=== PATIENT | female | born 1955 | race Caucasian/White ===

== ENCOUNTER 2017-02-12 09:28 | Inpatient (IN) ==
--- NOTE | 2017-02-12 10:04 | Emergency Department Note ---
Disposition Clinical Impression: Dyspnea Qualifiers: Dyspnea type: unspecified Qualified Code(s): R06.00 - Dyspnea, unspecified Chest pain Qualifiers: Chest pain type: unspecified Qualified Code(s): R07.9 - Chest pain, unspecified Disposition: Still a Patient Referrals: NO,PCP [Non-Partnered Physician] - Forms: ED Satisfaction Letter Time of Disposition: 11:05 SOB HPI - General Chief Complaint: ED Chest Pain Stated Complaint: Low SPO 2 Source: patient, family Limitations: no limitations Nursing Notes Reviewed: Yes Vital Signs Reviewed: Yes - History of Present Illness 61-year-old female presents to the emergency department for evaluation of low SPO2, and substernal chest pressure. The patient was at her primary care provider's office this morning, and was found to have an oxygen saturation in the low 80s on room air. The patient states that this has been an ongoing problem for the past week, however she refused to seek medical help. She states that at the worst, her oxygen saturation reached a level of 57% on room air, yet she refused to seek medical care. She does complain of some substernal chest pressure. She also states that there is a pleuritic component to the pain in her chest. She states that the chest pain is somewhat alleviated by rest, and is made worsened with exertion. As complain of orthopnea as well. She denies any fever, chills, nausea, vomiting, abdominal pain, cough, or sputum production. She also complains of worsening bilateral lower extremity swelling. Pt Subjective Complaint: shortness of breath, pain with inspiration, chest pain Onset (ago): week(s) (1 week) Severity: moderate Consistency/Duration: gradually worsening Associated symptoms: Reports: chest pain, pain with inspiration, orthopnea. Denies: fever, cough, wheezing, sputum production, palpitations, hemoptysis, diaphoresis, nausea/vomiting, abdominal pain Treatment prior to arrival: oxygen - Related Data Home Medications Medication Instructions Recorded Confirmed Albuterol Sulfate [Proair 2 inh IH Q4H PRN 06/21/16 10/07/16 Respiclick] Aspirin [Lo-Dose Aspirin EC] 81 mg PO DAILY 06/21/16 10/07/16 Atenolol/Chlorthalidone [Tenoretic 1 each PO DAILY 06/21/16 10/07/16 50 Tablet] Atorvastatin Calcium [Lipitor] 20 mg PO DAILY 06/21/16 10/07/16 CloNIDine HCl [Kapvay] 0.1 mg PO DAILY PRN 06/21/16 10/07/16 Fluticasone/Salmeterol [Advair 1 each IH BID 06/21/16 10/07/16 250-50 Diskus] Furosemide [Lasix] 40 mg PO DAILY 06/21/16 10/07/16 Glimepiride [Amaryl] 4 mg PO BID 06/21/16 10/07/16 Insulin NPH Hum/Reg Insulin Hm 55 - 75 unit SQ BID 06/21/16 10/07/16 [Novolin 70-30 100 Unit/ml Vial] Ipratropium/Albuterol Neb [Duoneb] 3 ml IH Q6HR PRN 06/21/16 10/07/16 Loratadine [Claritin] 10 mg PO DAILY 06/21/16 10/07/16 Nitroglycerin 0.4 mg SL Q5-6MIN PRN 06/21/16 10/07/16 Omeprazole [PriLOSEC] 40 mg PO DAILY 06/21/16 10/07/16 Oxycodone HCl/Acetaminophen 1 - 2 tab PO Q4-6H PRN 06/21/16 10/07/16 [Percocet 5-325 mg Tablet] Pregabalin [Lyrica] 200 mg PO BID 06/21/16 10/07/16 cephALEXin [Keflex] 500 mg PO BID 06/21/16 10/07/16 metFORMIN [Glucophage] 1,000 mg PO BIDWM 06/21/16 10/07/16 Allergies Allergy/AdvReac Type Severity Reaction Status Date / Time SLOAN Inhibitors AdvReac Cough Verified 02/12/17 09:38 enalapril AdvReac Cough Verified 02/12/17 09:38 All systems ED: reviewed and negative except as stated. Constitutional: Denies: fever, chills, weakness, weight change Eyes: Denies: eye pain, eye discharge, vision change ENT ED: Denies: ear pain, throat pain, dental pain, hearing loss, epistaxis, congestion, dysphagia Cardiovascular: Reports: as per HPI, chest pain, dyspnea on exertion, orthopnea , edema. Denies: palpitations, syncope Respiratory: Denies: cough, dyspnea, wheezes, hemoptysis, stridor Gastrointestinal: Denies: abdominal pain, nausea, vomiting, diarrhea, constipation, hematemesis, melena, hematochezia Genitourinary: Denies: dysuria, frequency, hematuria, discharge Musculoskeletal: Denies: back pain, neck pain, arthralgia, myalgia Integumentary: Denies: rash, abrasion, lesions Neurological: Denies: headache, weakness, numbness, paresthesias, confusion, abnormal gait, vertigo Psychiatric: Denies: anxiety, depression, suicidal thoughts, homicidal thoughts , auditory hallucinations, visual hallucinations Endocrine: Denies: fatigue Hematological/Lymphatic: Denies: easy bleeding, easy bruising Allergic/Immunologic: Denies: facial swelling, urticaria Past Medical History - Past Medical History Attestation: Yes The following information was validated with the patient. Source: patient, nursing notes reviewed Medical history: Reports: asthma, cardiomyopathy, diabetes, hypertension, other Surgical history: Reports: other Psychiatric history: Reports: no psych history ADOPTION COORDINATOR history: Reports: no ADOPTION COORDINATOR history - Social History Smoking Status: Never smoker Smokeless Tobacco Status: No Alcohol use: Reports: none Drug use: Reports: none Physical Exam - General Limitations: no limitations General appearance: alert, in no apparent distress - Head Head exam: atraumatic, normocephalic, normal inspection - Eye Eye exam: Present: normal appearance, PERRL, EOMI. Absent: nystagmus - ENT ENT exam: mucous membranes moist - Neck Neck exam: Present: normal inspection, full ROM, trachea midline - Chest Chest inspection: Present: normal inspection, symmetric chest wall rise - Respiratory Respiratory exam: Absent: respiratory distress, wheezes, stridor, accessory muscle use, prolonged expiratory phase - Expanded Respiratory Exam Location: decreased breath sounds: Left, Right, Upper, Lower - Cardiovascular Cardiovascular exam: Present: regular rate, normal rhythm, normal heart sounds - Abdominal Exam Abdominal exam: Present: soft, Non-Tender, normal bowel sounds. Absent: tenderness, distention, guarding, rebound, rigidity - Extremities Exam Extremities exam: Present: pedal edema (Bilaterally, 1-2+) - Expanded Lower Extremity Exam Lower leg exam: Present: swelling (Bilaterally), erythema (Left lower extremity slightly more erythematous than the right. There is an area of apparent cellulitis on the anterior aspect of the dorsal left lower extremity). Absent: tenderness, abrasion, laceration, ecchymosis, palpable cord, Homans' sign Neurovascular/Tendon exam: Present: normal capillary refill, normal 2-point discrimination. Absent: pulse deficit, motor deficit, sensory deficit, tendon deficit, extremity cold to touch - Neurological Exam Neurological exam: Present: alert, oriented X3 - Psychiatric Psychiatric exam: Present: normal affect, normal mood - Skin Skin exam: Present: warm, dry, intact, normal color Course Vital Signs Temperature 98.2 F 02/12/17 09:32 Pulse Rate 65 02/12/17 09:32 Respiratory Rate 22 02/12/17 09:32 Blood Pressure 155/73 02/12/17 09:32 O2 Sat by Pulse Oximetry 90 02/12/17 09:32 Temperature 98.2 F 02/12/17 09:32 Pulse Rate 67 02/12/17 12:25 Respiratory Rate 18 02/12/17 12:25 Blood Pressure 130/78 02/12/17 12:25 O2 Sat by Pulse Oximetry 93 02/12/17 12:25 Oxygen Delivery Oxygen Delivery Nasal Cannula Shortness of Breath/Dyspnea - Medical Records Medical records reviewed: Yes I reviewed the patient's medical records. - Lab Data Lab results reviewed: Yes I reviewed the patient's lab results. Result diagrams: 02/12/17 10:08 02/12/17 10:37 Lab Results 02/12/17 02/12/17 02/12/17 Range/Units 10:08 10:08 10:08 WBC 13.5 H (4.3-11.1) K/mcL RBC 4.22 (3.82-4.97) M/mcL Hgb 12.9 (11.5-15.4) g/dL Hct 40.3 (35.3-44.9) % MCV 95.5 (83.0-100.0) fL MCH 30.6 (28.0-33.3) pg MCHC 32.0 (31.6-35.5) g/dL RDW 19.2 H (11.5-14.5) % Plt Count 306 (140-400) K/mcL MPV 9.9 (9.4-12.4) fL Immature Gran % 0.8 (0-4) % Seg Neutrophils % 79.5 % Lymphocytes % 13.0 % Monocytes % 4.2 % Eosinophils % 2.1 % Basophils % 0.4 % Neutrophils # 10.7 H (1.6-8.9) K/mcL Lymphocytes # 1.8 (0.6-4.6) K/mcL Monocytes # 0.6 (0.0-1.3) K/mcL Eosinophils # 0.3 (0.0-0.6) K/mcL Basophils # 0.1 (0.0-0.2) K/mcL Nucleated RBCs/100 WBC 0.7 H (0) /100 WBC Immature Plt Fraction 3.4 (1.1-6.1) % PT 11.5 (9.4-12.1) Seconds INR 1.1 APTT 26.8 (26.0-36.0) Seconds D-Dimer 837 H (0-500) ng/mLFEU Sodium (136-145) mEq/L Potassium (3.5-4.5) mEq/L Chloride (98-109) mEq/L Carbon Dioxide (19-29) mEq/L BUN (7-20) mg/dL Creatinine (0.57-1.11) mg/dL Est GFR ( Amer) (> 60) Est GFR (Non-Af Amer) (> 60) BUN/Creatinine Ratio (6-26) Glucose (70-99) mg/dL Calculated Osmolality (280-300) Calcium (8.6-10.8) mg/dL Troponin I (0-0.03) ng/mL B-Natriuretic Peptide 98 (0-100) pg/mL Specimen Rejected 02/12/17 02/12/17 02/12/17 Range/Units 10:08 10:08 10:37 WBC (4.3-11.1) K/mcL RBC (3.82-4.97) M/mcL Hgb (11.5-15.4) g/dL Hct (35.3-44.9) % MCV (83.0-100.0) fL MCH (28.0-33.3) pg MCHC (31.6-35.5) g/dL RDW (11.5-14.5) % Plt Count (140-400) K/mcL MPV (9.4-12.4) fL Immature Gran % (0-4) % Seg Neutrophils % % Lymphocytes % % Monocytes % % Eosinophils % % Basophils % % Neutrophils # (1.6-8.9) K/mcL Lymphocytes # (0.6-4.6) K/mcL Monocytes # (0.0-1.3) K/mcL Eosinophils # (0.0-0.6) K/mcL Basophils # (0.0-0.2) K/mcL Nucleated RBCs/100 WBC (0) /100 WBC Immature Plt Fraction (1.1-6.1) % PT (9.4-12.1) Seconds INR APTT (26.0-36.0) Seconds D-Dimer (0-500) ng/mLFEU Sodium 142 (136-145) mEq/L Potassium 3.2 L (3.5-4.5) mEq/L Chloride 96 L (98-109) mEq/L Carbon Dioxide 34 H (19-29) mEq/L BUN 17 (7-20) mg/dL Creatinine 1.01 (0.57-1.11) mg/dL Est GFR ( Amer) > 60 (> 60) Est GFR (Non-Af Amer) 56 L (> 60) BUN/Creatinine Ratio 17 (6-26) Glucose 159 H (70-99) mg/dL Calculated Osmolality 299 (280-300) Calcium 9.1 (8.6-10.8) mg/dL Troponin I 0.00 (0-0.03) ng/mL B-Natriuretic Peptide (0-100) pg/mL Specimen Rejected Hemolyzed - Radiology Data Radiology results reviewed: Yes I reviewed the patient's radiology results. - EKG Data EKG attestation: Yes I reviewed and interpreted this EKG. SMatti - S.B.A.RAlber Transition of Care: Care of this patient has been assumed by Dr. Coronado as of this time. Situation: Demographics, MOA Background: Presenting Complaint, Relevant PMH, Meds, & Allergies Assessment: Vital Signs, Course and respsone to treatment, Exam Concerns, Patient/Family Expectation, Pertinant Lab Results, Outstanding Labs Recommendation: Barrier(s) to disposition, Recommendation based on pending studies, treatments, or consults S.B.A.RAlber Report Given to: Cliff Zarco Repor Time: 11:05 Attestation Statement - Attestation Attestation: I examined this patient and my medical decision-making was reviewed with the CAT AND DOG BATHER/PA/Advanced Practice Nurse/Resident Physician. I agree with the documented findings, disposition and treatment plan as described except to the extent set forth below. Face to face time provided Patient presents with substernal chest discomfort, dyspnea, hypoxia. She is intermittently oxygen dependent-mostly at night with her CPAP. She was hypoxic prehospital. CTA ordered by the mid-level provider. EKG reviewed by me. Patient appears in no acute distress on exam. Oxygen low 90s on supplemental oxygen 12:27: CTA negative for acute pathology including pulmonary embolism. Pulse ox is 89% with supplemental oxygen. She is resting comfortably. I will request admission for chest pain evaluation and possible pulmonary consultation
[2017-02-12 10:19] LABS: Hematocrit 40.3 % (35.3-44.9); Hemoglobin 12.9 g/dL (11.5-15.4); Red Blood Count 4.22 M/mcL (3.82-4.97)
[2017-02-12 10:20] LABS: Basophils # 0.1 K/mcL (0.0-0.2); Basophils % 0.4 %; Eosinophils # 0.3 K/mcL (0.0-0.6); Eosinophils % 2.1 %; Immature Granulocytes % 0.8 % (0-4); Immature Platelets 3.4 % (1.1-6.1); Lymphocytes # 1.8 K/mcL (0.6-4.6); Mean Corpuscular Hemoglobin 30.6 pg (28.0-33.3); Mean Corpuscular Volume 95.5 fL (83.0-100.0); Mean Platelet Volume 9.9 fL (9.4-12.4); Monocytes # 0.6 K/mcL (0.0-1.3); Monocytes % 4.2 %; Neutrophils # 10.7 K/mcL (1.6-8.9); Nucleated Red Blood Cells 0.7 /100 WBC (0); Platelet Count 306 K/mcL (140-400); Red Cell Distribution Width 19.2 % (11.5-14.5); Segmented Neutrophils % 79.5 %
[2017-02-12 10:25] LABS: INR 1.1; Prothrombin Time 11.5 Seconds (9.4-12.1)
[2017-02-12 10:27] LABS: Activated Partial Thrombo Time 26.8 Seconds (26.0-36.0)
[2017-02-12 11:24] LABS: BUN/Creatinine Ratio 17 (6-26); Blood Urea Nitrogen 17 mg/dL (7-20); Calcium 9.1 mg/dL (8.6-10.8); Carbon Dioxide 34 mEq/L (19-29); Chloride 96 mEq/L (98-109); Glucose 159 mg/dL (70-99); Osmolality,Calculated 299 (280-300); Potassium 3.2 mEq/L (3.5-4.5); Sodium 142 mEq/L (136-145); eGFR For African Americans > 60 (> 60); eGFR For Non-African Americans 56 (> 60)
[2017-02-12] MEDS ORDERED: Naloxone 0.4 MG/ML INJ IVP PRN (14:13)
[2017-02-12] MEDS ORDERED: Furosemide 40 MG/4 ML VIAL IVP ONE (14:16)
[2017-02-12] MEDS ORDERED: Dextrose Gel 15 GM PO PRN ×2 (14:16)
[2017-02-12] MEDS ORDERED: *HR* Dextrose 50 % in Water (Syg) 50 ML SYRINGE IVP PRN (14:16)
[2017-02-12] MEDS ORDERED: D5% in Water 1,000 ML IVC PRN (14:16)
[2017-02-12] MEDS ORDERED: Ipratropium/Albuterol Neb 3 ML IH PRN (14:17)
[2017-02-12] MEDS ORDERED: *HR* OxyCODONE/APAP 5/325 TABLET PO PRN (14:17)
--- NOTE | 2017-02-12 14:24 | Internal Med History&Physical ---
<Cristal Mcrae - Last Filed: 02/12/17 14:32> Date of Encounter: 02/12/17 Time of Encounter: 14:20 Assessment and Plan (1) Acute on chronic respiratory failure with hypoxia Current visit: Yes Status: Acute Presented with worsening shortness of breath for 1 week prior to admission. With new oxygen requirement, on O2 4 L. Suspect multifactorial with COPD, morbid obesity and possibly malfunctioning CPAP. Chest CTA negative for PE, chest x-ray negative. BNP 98, does appear somewhat overloaded on exam with lower extremity edema and crackles. Hold home Lasix, add IV Lasix. Continue supplemental O2, wean as able, treat underlying causes, daily weights, I&Os. Echo with bubble study, ABG pending. Consider Pulm consult if no improvement. (2) Chest pain Current visit: Yes Status: Acute Presented with chest pressure that is worse with inspiration. Initial troponin negative, EKG with no acute ST changes. [facility] 06/2016 with normal arteries, and EF 60%. Continue to cycle troponin, consult cardiology if needed. Qualifiers: Chest pain type: chest pain on breathing Qualified Code(s): R07.1 - Chest pain on breathing (3) Murmur, cardiac Current visit: Yes Status: Acute noted on exam. No previous hx per patient. Echo pending (4) Hypokalemia Current visit: Yes Status: Acute K 3.2, replaced Monitor repeat CMP (5) Cellulitis Current visit: Yes Status: Acute bilateral lower extremities with chronic cellulitis. Patient reports history of ulcers and states symptoms are improving. Appears cellulitic on exam with warmth redness and tenderness. Last treated with ATB approximately 2-3 months ago. WBC 13.5 (she does have chronic leukocytosis). Start on Keflex, de- escalate as clinically improves. Bilateral lower extremity venous Dopplers pending Qualifiers: Site of cellulitis of extremity: lower extremity Laterality: left Qualified Code(s): L03.116 - Cellulitis of left lower limb (6) RAMO (obstructive sleep apnea) Current visit: Yes Status: Acute Per history. Patient underwent sure if using BiPAP or CPAP at home. Machine was initially prescribed 8 years ago and patient has changed insurance since then and has not machine has not been maintained. Concerned machine malfunction could be contributing to hypoxia. Order placed for overnight pulse oximetry and BiPAP qualification. Social work consult to assist with outpatient follow- up (7) Leucocytosis Current visit: No Status: Chronic WBC 13.5. She does have history of chronic leukocytosis and has been evaluated by oncology in the past. WBC around 18 at that time. Monitor CBC and follow up outpatient as previously planned Qualifiers: Leukocytosis type: unspecified Qualified Code(s): D72.829 - Elevated white blood cell count, unspecified (8) DVT prophylaxis Current visit: Yes Status: Acute lovenox (9) Diabetes Current visit: Yes Status: Acute per hx. Control unknown. Holding home oral hypoglycemics. Cont home long acting insulin, add SSI. Monitor blood sugar and titrate PRN Hgb A1c pending Qualifiers: Qualified Code(s): E11.9 - Type 2 diabetes mellitus without complications Internal Medicine - H&P: HPI Chief complaint: shortness of breath and chest pain Admitted From: Home History of present illness: Ms. Bowers is a 61 year old female with past medical history CAD, COPD, diabetes, morbid obesity, RAMO, chronic cellulitis who presented to [facility] on 02/12/2017 with complaints of shortness of breath hypoxia and chest pain. She was found to be in acute respiratory failure with hypoxia therefore she was admitted for further workup and treatment information obtained from chart review and patient report. Patient reports over the last week she has been more short of breath normally uses O2 at at bedtime only however she has been wearing a [id number] at home. Her father has a pulse oximeter and she reports O2 saturations as low as 57% at home however she did not seek medical attention for this. She reports getting winded and has stop and catch her breath at walking across the room. Reports medication compliance with Lasix and says she watches salt intake. Regarding her chest pain she reports a chest pressure off and on for the last week or so pressure is midsternal does not radiate and is worse with a deep breath, feels that she cannot get in enough air. Sensation spontaneously resolves on its own. She is currently somewhat short of breath but denies chest pain on my exam Past Med Surg Social Fam HX - Past Medical History Medical history: asthma, cardiomyopathy, diabetes, hypertension, other Psychiatric history: no psych history - Past Surgical History Surgical History: other - Social History Smoking Status: Never smoker Smokeless Tobacco Status: No Alcohol use: none Drug use: none - Family History Mother Living Status: Still Living Hx Family Cancer: Yes (uterine) Hx Family Endocrine Disorder: Yes (dm 2) Internal Medicine - H&P: Meds Albuterol Sulfate [Proair Respiclick] 2 inh IH Q4H PRN 06/21/16 [History] Aspirin [Lo-Dose Aspirin EC] 81 mg PO DAILY 06/21/16 [History] Atenolol/Chlorthalidone [Tenoretic 50 Tablet] 1 each PO DAILY 06/21/16 [History] Atorvastatin Calcium [Lipitor] 20 mg PO DAILY 06/21/16 [History] Fluticasone/Salmeterol [Advair 250-50 Diskus] 1 each IH BID 06/21/16 [History] Glimepiride [Amaryl] 4 mg PO BID 06/21/16 [History] Insulin NPH Hum/Reg Insulin Hm [Novolin 70-30 100 Unit/ml Vial] 55 - 75 unit SQ BID 06/21/16 [History] Ipratropium/Albuterol Neb [Duoneb] 3 ml IH Q6HR PRN 06/21/16 [History] Nitroglycerin 0.4 mg SL Q5-6MIN PRN 06/21/16 [History] Oxycodone HCl/Acetaminophen [Percocet 5-325 mg Tablet] 1 - 2 tab PO Q4-6H PRN [History] Pregabalin [Lyrica] 200 mg PO BID 06/21/16 [History] Furosemide [Lasix] 20 mg PO DAILY 02/12/17 [History] Metformin HCl [Metformin HCl ER] 1,000 mg PO BID 02/12/17 [History] Allergies SLOAN Inhibitors Adverse Reaction (Verified 02/12/17 13:42) Cough enalapril Adverse Reaction (Verified 02/12/17 13:42) Cough All Systems PM: A 10-system review of systems was performed and is negative for pertinent findings except as documented above in the HPI. - Constitutional Constitutional: no chills, no fever(s), no night sweats - EENT Eyes: no change in vision, no discharge, no pain, no photophobia Ears: no ear discharge, no ear pain, no tinnitus Nose, mouth and throat: no dysphagia, no nasal discharge, no neck pain, no sore throat - Cardiovascular Cardiovascular ROS IM: chest pain, dyspnea on exertion, edema, no diaphoresis, no dyspnea, no lightheadedness, no palpitations, no syncope - Respiratory Respiratory: dyspnea on exertion, pain on inspiration, no cough, no dyspnea, no wheezing, no excessive phlegm production - Gastrointestinal Gastrointestinal: no abdominal pain, no diarrhea, no hematemesis, no hematochezia, no melena, no nausea, no vomiting - Genitourinary Genitourinary: no change in urinary stream, no dysuria, no flank pain, no hematuria - Musculoskeletal Musculoskeletal ROS IM: no numbness, no tingling - Integumentary Integumentary IM: erythema, no rash, no unusual bruising - Neurological Neurological ROS: no confusion, no convulsions, no focal weakness, no numbness, no tingling, no tremor(s) - Hematologic/Lymphatic Hematologic/Lymphatic: no easy bruising - Constitutional Vitals: Temp Pulse Resp BP Pulse Ox 98.2 F 71 18 139/67 91 02/12/17 09:32 02/12/17 13:44 02/12/17 13:44 02/12/17 13:44 02/12/17 13:44 General appearance: Present: A&O X 3, morbidly obese, no acute distress - Head Head exam: Present: atraumatic, normocephalic - Eye Eye exam: Present: PERRL, conjuntiva pink, sclera anicteric Pupils: Present: PERRL - Neck Neck exam general surgery: Present: supple, trachea midline. Absent: lymphadenopathy - Respiratory Respiratory exam: Present: CTAB, rales. Absent: accessory muscle use, rhonchi, wheezes - Cardiovascular Cardiovascular exam: Present: RRR, +S1, +S2. Absent: diastolic murmur, gallop, rubs, systolic murmur Additional comments: + murmur - GI/Abdominal GI/Abdominal exam: Present: normal bowel sounds, soft, no peritoneal signs. Absent: distended, tenderness - Extremities Exam Extremities exam: Present: pedal edema, tenderness, warm, radial pulses palpable and symetrical. Absent: calf tenderness, cyanotic - Neurological Exam Neurological exam: Present: CN II-XII intact, oriented X3, no focal deficits. Absent: pronater drift, facial droop, speech deficit - Skin Skin exam: Present: dry, intact Internal Med - H&P Results - Labs CBC & Chem 7: 02/12/17 10:08 02/12/17 10:37 - EKG Data -: EKG Interpreted by Myself EKG shows normal: sinus rhythm <Anay Gutierrez - Last Filed: 02/12/17 16:11> Date of Encounter: 02/12/17 Internal Medicine - H&P: HPI History of present illness: Ms. Bowers is a 61 year old female Past Med Surg Social Fam HX - Family History Mother Living Status: Still Living Hx Family Cardiac Disorders: Yes Hx Family Respiratory Disorders: Yes Hx Family Cancer: Yes (uterine cancer) Hx Family GI Disorders: Yes Hx Family Genitourinary Disorders: No Hx Family Endocrine Disorder: No (DM, thyroid) Hx Family Musculoskeletal Disorders: No Hx Family Neuromuscular Disorders: No Hx Family Neurologic Disorders: No Hx Family HEENT Disorders: No Hx Family Autoimmune Disorders: No Hx Family Reproductive Disorders: No Hx Family Psychosocial Disorders: No Father Hx Family Cardiac Disorders: Yes Hx Family Respiratory Disorders: Yes (COPD) Hx Family Cancer: No Hx Family GI Disorders: Yes Hx Family Genitourinary Disorders: No Hx Family Endocrine Disorder: Yes (DM) Hx Family Musculoskeletal Disorders: No Hx Family Neuromuscular Disorders: No Hx Family Neurologic Disorders: Yes (CVA) Hx Family HEENT Disorders: No Hx Family Autoimmune Disorders: No Hx Family Reproductive Disorders: No Hx Family Psychosocial Disorders: No Hx Family Medical Disorders: No All Systems PM: A 10-system review of systems was performed and is negative for pertinent findings except as documented above in the HPI. - Constitutional Vitals: Temp Pulse Resp BP Pulse Ox 97.9 F 69 16 125/62 93 02/12/17 14:29 02/12/17 14:29 02/12/17 14:29 02/12/17 14:29 02/12/17 14:29 Internal Med - H&P Results - Labs CBC & Chem 7: 02/12/17 10:08 02/12/17 10:37 Labs: Cardiac Enzymes 02/12/17 Range/Units 14:50 Troponin I 0.00 (0-0.03) ng/mL - Attending Attestation I examined this patient and reviewed laboratory, imaging and all diagnostic data. My medical decision-making was reviewed with Cristalrosana Maher NP. I agree with the documented findings, disposition and treatment plan as described above. History and exam by me shows: severely obese women, SaO2 93% on 4L NC. CTA chest was negative. Continue oxygen suppl. Serial troponins. Echo. Overnight pulsoximetry study with ABG in the morning. CPAP/BIPAP at bedtime. Nurse to request CPAP settings to [facility].
[2017-02-12 15:25] LABS: Hemoglobin A1C 8.7 %
--- NOTE | 2017-02-12 15:41 | Electrocardiograph Report ---
[place] [id number] Test Date: 2017-02-12 Pat Name: Yin Bowers Department: 105 Room: 3B Gender: F [employer] Administrator: MSC : [id number] Requested By: Ramiro Bolton Order Number: [id number] Reading MD: Carter Cabral MD Measurements Intervals Holmen Rate: 63 P: 3 ND: 181 QRS: 14 QRSD: 98 T: 13 QT: 398 QTc: 405 Interpretive Statements SINUS RHYTHM WITH SINUS ARRHYTHMIA BASELINE ARTIFACT Electronically Signed On 02-12-2017 15:40:19 EDT by Carter Cabral MD
[2017-02-12] MEDS: Insulin LISPRO 300 UNITS/3 ML VIAL SQ SCH ×2 (17:11→21:38)
[2017-02-12] MEDS: cephALEXin 500 MG CAPSULE PO SCH ×2 (17:11→23:04)
[2017-02-12] MEDS: *HR* OxyCODONE/APAP 5/325 TABLET PO PRN (17:18)
[2017-02-12] MEDS: Budesonide/Formoterol 80/4.5 MDI IH SCH (20:15)
[2017-02-12] MEDS: Pregabalin 50 MG CAPSULE PO SCH (21:42)
[2017-02-12] MEDS: Insulin NPH/REG 70/30 100 UNIT/ML (x5UNIT) SQ SCH (21:42)
[2017-02-13 04:59] LABS: Basophils # 0.1 K/mcL (0.0-0.2); Basophils % 0.5 %; Eosinophils % 0.2 %; Hemoglobin 11.5 g/dL (11.5-15.4); Immature Granulocytes % 0.7 % (0-4); Lymphocytes # 1.4 K/mcL (0.6-4.6); Mean Corpuscular HGB Conc 31.1 g/dL (31.6-35.5); Mean Corpuscular Hemoglobin 29.9 pg (28.0-33.3); Mean Corpuscular Volume 96.4 fL (83.0-100.0); Mean Platelet Volume 10.3 fL (9.4-12.4); Monocytes # 0.7 K/mcL (0.0-1.3); Monocytes % 5.5 %; Neutrophils # 10.5 K/mcL (1.6-8.9); Nucleated Red Blood Cells 0.5 /100 WBC (0); Platelet Count 285 K/mcL (140-400); Red Blood Count 3.84 M/mcL (3.82-4.97); Red Cell Distribution Width 19.1 % (11.5-14.5); Segmented Neutrophils % 82.1 %
[2017-02-13 05:11] LABS: ABG Base Excess 13.2 mEq/L (-2.0 to 3.0); ABG HCO3 42.1 mEQ/L (21-27); ABG Oxygen Saturation 86 % (95-98); ABG PH 7.34 pH Units (7.32-7.45); ABG PO2 55 mmHg (85-104); ABG TCO2 44.5 mEq/L (20-26); Blood Gas FiO2 36 %
[2017-02-13 05:12] LABS: ABG PCO2 78 mmHg (35-45)
[2017-02-13 05:22] LABS: Albumin/Globulin Ratio 0.8 (1.1-2.2); Bilirubin,Total 0.4 mg/dL (0.2-1.2); Calcium 9.2 mg/dL (8.6-10.8); Globulin 3.6 g/dL (2.4-3.5); Total Protein 6.6 g/dL (6.0-8.3)
[2017-02-13] MEDS: cephALEXin 500 MG CAPSULE PO SCH ×4 (05:29→23:51)
[2017-02-13] MEDS: *HR* Enoxaparin 40 MG/0.4 ML SYRINGE SQ SCH (05:29)
--- NOTE | 2017-02-13 07:21 | Venous Imaging Report ---
LE Venous Duplex Patient Name:Yin Bowers Order Number:[id number] Procedure Date:02/12/2017 Date:8Age:61 yrs Gender:Female Location:[facility] Room #: 3B35 Hydro Plant Technician:Gina Juarez Referring MD:Cristal Mcrae CNP dag sprayer:Nomi Valle MD Reading MD:Holden Mart MD Primary Indications:lower ext edema: r/o DVT Secondary Indications: Risk Factors Yes/No Anticoagulants Yes Impressions: Normal right lower extremity deep and superficial venous exam. Normal left lower extremity deep venous exam. The left greater saphenous vein has acute superficial venous thrombosis below the knee. Recommendations: After imaging the patient returned to their room. Test completed on 02/12/2017 at 7:40:00 pm. Critical findings reported to Babak HERNANDEZ 3B in person at 9:10:00 pm on 02/12/2017 by Gina Juarez. Findings Venous Duplex Results: Right: Venous imaging of the lower extremity reveals full patency and normal vessel compressibility of the right distal iliac, right common femoral, right superficial femoral, right popliteal, right posterior tibial, right peroneal, right great saphenous and right lesser saphenous. Doppler signals in the evaluated veins were normal. Left: Venous imaging of the lower extremity reveals full patency and normal vessel compressibility of the left distal iliac, left common femoral, left superficial femoral, left popliteal, left posterior tibial, left peroneal, left great saphenous above knee and left lesser saphenous. Doppler signals in the evaluated veins were normal. The left great saphenous below knee demonstrates an incompressible vein. Flow was absent and it did not augment. Lower Extremity Venous Duplex Side Vein Compress Spontaneous Flow Augment Diameter (cm) Depth (cm) Right Distal Iliac Normal yes Phasic yes Right Common Femoral Normal yes Phasic yes Right Superficial Femoral Normal yes Phasic yes Right Popliteal Normal yes Phasic yes Right Posterior Tibial Normal yes Phasic yes Right Peroneal Normal yes Phasic yes Right Great Saphenous Normal yes Phasic yes Right Lesser Saphenous Normal yes Phasic yes Left Distal Iliac Normal yes Phasic yes Left Common Femoral Normal yes Phasic yes Left Superficial Femoral Normal yes Phasic yes Left Popliteal Normal yes Phasic yes Left Posterior Tibial Normal yes Phasic yes Left Peroneal Normal yes Phasic yes Left Great Saphenous AK Normal yes Phasic yes Left Great Saphenous BK None no Absent no Left Lesser Saphenous Normal yes Phasic yes Updated by Holden Mart MD on 02/13/2017 7:14:25 AM electronically signed on 02/13/2017 7:14:45 AM with status of Final
[2017-02-13] MEDS: Budesonide/Formoterol 80/4.5 MDI IH SCH ×2 (07:38→21:53)
[2017-02-13] MEDS: Insulin LISPRO 300 UNITS/3 ML VIAL SQ SCH ×4 (08:05→21:19)
[2017-02-13] MEDS: Aspirin Enteric Coated 81 MG Tablet PO SCH (08:05)
[2017-02-13] MEDS: Pregabalin 50 MG CAPSULE PO SCH ×2 (08:05→21:18)
[2017-02-13] MEDS: Furosemide 40 MG/4 ML VIAL IVP SCH ×2 (08:09→17:49)
[2017-02-13] MEDS: Insulin NPH/REG 70/30 100 UNIT/ML (x5UNIT) SQ SCH ×2 (08:18→21:18)
[2017-02-13] MEDS: *HR* OxyCODONE/APAP 5/325 TABLET PO PRN ×2 (08:19→17:49)
--- NOTE | 2017-02-13 16:46 | Internal Med Progress Note ---
Date of Encounter: 02/13/17 Time of Encounter: 08:40 - Assessment and plan (1) Leucocytosis Current Visit: No Status: Chronic Assessment and plan: Chronic. Patient has been seen by oncology and will follow up outpatient. Trending down slightly. Continue to monitor labs. Qualifiers: Leukocytosis type: unspecified Qualified Code(s): D72.829 - Elevated white blood cell count, unspecified (2) Chest pain Current Visit: Yes Status: Acute Assessment and plan: Patient reports one-week history of midsternal pressure with nausea. She says this happens when she is exerting herself, including just walking around cooking in her kitchen. She says it feels like something is sitting on her chest. She has shortness of breath, nausea and weakness. She began wearing home oxygen that she had for her CPAP. She says it seems to help. Troponins were negative. EKG no acute ST changes. Patient has a left heart catheter in June, with EF of 60% and normal arteries. Echocardiogram done this visit shows LVEF 65% with normal systolic function. There is evidence of mild diastolic dysfunction there is no evidence of PFO or pulmonary hypertension. Patient continues to have exertional chest pain. Continue telemetry Consult cardiology Monitor labs Qualifiers: Chest pain type: chest pain on breathing Qualified Code(s): R07.1 - Chest pain on breathing (3) Acute on chronic respiratory failure with hypoxia Current Visit: Yes Status: Acute Assessment and plan: Patient has had worsening shortness of breath, weakness, chest pain for 1 week prior to admission. Patient had not been wearing oxygen other than to sleep, now she is requiring 4 L at all times. Patient has COPD, morbid obesity, she has not been wearing her CPAP. Patient is not sure whether she has CPAP or BiPAP at home. Chest CTA was negative for PE, chest x-ray was also negative. BNP is 98. Patient is being treated with IV Lasix for edema. Her lungs are clear and diminished posteriorly. She does have pitting edema to bilateral lower extremities, however, she does have cellulitis as well. We will continue the oxygen and attempt to wean her. Maintain sats greater than 92%. Intake and output, daily weights. We will consider pulmonology consult if patient does not improve. (4) Cellulitis Current Visit: Yes Status: Acute Assessment and plan: Chronic. Being treated with Keflex. We will continue to monitor and stop antibiotic when improved. Qualifiers: Site of cellulitis of extremity: lower extremity Laterality: left Qualified Code(s): L03.116 - Cellulitis of left lower limb (5) Hypokalemia Current Visit: Yes Status: Acute Assessment and plan: Potassium 3.0. She was given 2 doses of potassium by mouth. She will get 2 more. We will redraw labs in the morning. (6) RAMO (obstructive sleep apnea) Current Visit: Yes Status: Acute Assessment and plan: Patient has CPAP/BiPAP at home. She states that she is unsure which one she has. She has had the machine for multiple years, she said that she has changed insurance companies and machine has not been maintained. She is due for another machine. She does wear oxygen to sleep. She had an overnight pulse ox last night to try to qualify for BiPAP. Social workers on board to assist with follow-up for this. (7) DVT prophylaxis Current Visit: Yes Status: Acute Assessment and plan: Lovenox subcutaneous daily (8) Diabetes Current Visit: Yes Status: Acute Assessment and plan: Patient reports that her A1c had been 12 previously. I was unable to locate this, I did find a 10.6 last year. Is a 8.8 now. She says she is attempting to lose weight and is trying to adhere to a strict diet. She reports 32 pound weight loss. Sliding scale insulin Diabetic diet Accu-Cheks before meals and at bedtime Qualifiers: Diabetes mellitus type: type 2 Diabetes mellitus complication status: without complication Diabetes mellitus intermission coordinator insulin use: without intermission coordinator use Qualified Code(s): E11.9 - Type 2 diabetes mellitus without complications (9) Murmur, cardiac Current Visit: Yes Status: Chronic (10) Acute superficial venous thrombosis of left lower extremity Current Visit: Yes Status: Acute Assessment and plan: Patient had venous Doppler yesterday showed superficial venous thrombosis below the knee and the left greater saphenous vein. Patient denies pain. Her legs are edematous already due to chronic edema and cellulitis. ASA 81mg po daily HIMANSHU hose elevate extremity warm compresses. - Time Spent With Patient less than 15 minutes - Subjective Interval history: Patient was seen and evaluated about 8:40 AM. She denies actual chest pain, instead because of the pressure. She has had it for 1 week, it is midsternal with exertion with associated nausea. She said it is definitely when she is up walking around and exerting herself. She says it feels like there is something sitting on her chest. She said when she is up for too long she become short of breath, nauseated, weak and needs to sit down. She has a pulse oximeter at home and found that she was having low sats in the 50s. Patient already had oxygen at home that was to be used for her CPAP which she is no longer wearing. She is started wearing oxygen during the day routinely, prior to that she was only wearing it at sleep. She says that her sats have resolved and that she feels better with oxygen. - Constitutional Vitals: Temp Pulse Resp BP Pulse Ox 98.2 F 72 18 121/77 91 02/13/17 15:02 02/13/17 15:02 02/13/17 15:02 02/13/17 15:02 02/13/17 15:02 General appearance: Present: A&O X 3, morbidly obese, pleasant, no acute distress, answers questions appropriately - Head Head exam: Present: normal inspection - Eye Eye exam: Present: normal appearance, conjuntiva pink - ENT ENT exam: Present: mucous membranes moist, normal exam - Neck Neck exam general surgery: Present: normal inspection. Absent: lymphadenopathy , tenderness - Respiratory Respiratory exam: Present: decreased breath sounds, CTAB. Absent: rales, rhonchi, stridor, wheezes - Cardiovascular Cardiovascular exam: Present: diastolic murmur, RRR, +S1, systolic murmur. Absent: bradycardia, irregular rhythm, tachycardia - GI/Abdominal GI/Abdominal exam: Present: distended, normal bowel sounds, soft. Absent: tenderness - Extremities Exam Extremities exam: Present: calf tenderness, pedal edema, tenderness, warm, radial pulses palpable and symetrical. Absent: full ROM, normal inspection - Neurological Exam Neurological exam: Present: alert, oriented X3, no focal deficits, strengths equal and symetr throughout. Absent: facial droop, speech deficit Internal Medicine: Result - Labs CBC & Chem 7: 02/13/17 03:38 02/13/17 03:38 Labs: Short CBC 02/13/17 Range/Units 03:38 WBC 12.8 H (4.3-11.1) K/mcL Hgb 11.5 (11.5-15.4) g/dL Hct 37.0 (35.3-44.9) % Plt Count 285 (140-400) K/mcL Neutrophils # 10.5 H (1.6-8.9) K/mcL BMP 02/13/17 03:38 Sodium 141 Potassium 3.0 L Chloride 96 L Carbon Dioxide 37 H BUN 18 Creatinine 1.19 H Glucose 218 H Calcium 9.2 Cardiac Enzymes 02/12/17 02/13/17 Range/Units 21:11 03:38 Troponin I 0.00 0.01 (0-0.03) ng/mL Liver Function 02/13/17 Range/Units 03:38 Total Bilirubin 0.4 (0.2-1.2) mg/dL AST 14 (5-34) Units/L ALT 19 (0-55) Units/L Alkaline Phosphatase 78 (38-126) Units/L Albumin 3.0 L (3.5-5.0) g/dL - ABG Interpretation ABG results: ABG ABG pH 7.34 pH Units (7.32-7.45) 02/13/17 05:00 ABG pCO2 78 mmHg (35-45) H* 02/13/17 05:00 ABG pO2 55 mmHg (85-104) L 02/13/17 05:00 ABG O2 Saturation 86 % (95-98) L 02/13/17 05:00 PT/INR, D-dimer PT 11.5 Seconds (9.4-12.1) 02/12/17 10:08 D-Dimer 837 ng/mLFEU (0-500) H 02/12/17 10:08 Consult Discharge Plan - Plan Referrals: Nomi Valle MD [Primary Care Provider] -
[2017-02-14 05:16] LABS: Basophils # 0.1 K/mcL (0.0-0.2); Basophils % 0.5 %; Eosinophils # 0.1 K/mcL (0.0-0.6); Eosinophils % 0.6 %; Hematocrit 35.5 % (35.3-44.9); Hemoglobin 11.1 g/dL (11.5-15.4); Immature Granulocytes % 1.4 % (0-4); Lymphocytes # 1.7 K/mcL (0.6-4.6); Mean Corpuscular HGB Conc 31.3 g/dL (31.6-35.5); Mean Corpuscular Volume 95.9 fL (83.0-100.0); Mean Platelet Volume 9.9 fL (9.4-12.4); Monocytes % 7.3 %; Neutrophils # 10.9 K/mcL (1.6-8.9); Nucleated Red Blood Cells 0.2 /100 WBC (0); Platelet Count 267 K/mcL (140-400); Red Cell Distribution Width 18.3 % (11.5-14.5); Segmented Neutrophils % 78.2 %
[2017-02-14 05:36] LABS: Calcium 9.3 mg/dL (8.6-10.8); Potassium 3.2 mEq/L (3.5-4.5)
[2017-02-14] MEDS: *HR* Enoxaparin 40 MG/0.4 ML SYRINGE SQ SCH (06:02)
[2017-02-14] MEDS: cephALEXin 500 MG CAPSULE PO SCH ×3 (06:02→17:31)
[2017-02-14] MEDS: Budesonide/Formoterol 80/4.5 MDI IH SCH ×2 (08:08→20:02)
[2017-02-14] MEDS: Aspirin Enteric Coated 81 MG Tablet PO SCH (08:34)
[2017-02-14] MEDS: Furosemide 40 MG/4 ML VIAL IVP SCH ×2 (08:34→17:33)
[2017-02-14] MEDS: Pregabalin 50 MG CAPSULE PO SCH (08:34)
[2017-02-14] MEDS: Insulin LISPRO 300 UNITS/3 ML VIAL SQ SCH ×3 (08:34→17:32)
[2017-02-14] MEDS: Insulin NPH/REG 70/30 100 UNIT/ML (x5UNIT) SQ SCH (08:51)
[2017-02-14] MEDS ORDERED: *HR* OxyCODONE/APAP 5/325 TABLET PO PRN (09:30)
[2017-02-14] MEDS: Acetaminophen 325 MG TABLET PO PRN ×2 (09:44→17:31)
[2017-02-14 10:56] LABS: Bilirubin,Urine Negative (Negative); Blood,Urine Trace (Negative); Clarity,Urine Clear (Clear); Color,Urine Yellow (Yellow); Glucose,Urine (UA) Normal (Normal); Ketones,Urine Negative (Negative); Leukocyte Esterase,Urine Trace (Negative); Nitrite,Urine Negative (Negative); Protein,Urine Negative (Neg-Trace); Specific Gravity,Urine 1.012 (1.010-1.025); Urobilinogen,Urine Normal (Normal)
[2017-02-14 10:58] LABS: Bacteria,Urine None Seen per hpf (None-Few); Hyaline Casts,Urine None Seen per lpf (None-Few); RBC,Urine 0-3 per hpf (0-3); Squamous Epithelial Cell,Urine Moderate per lpf (None-Few); WBC,Urine 0-3 per hpf (0-3)
[2017-02-14 14:50] VITALS: BP 136/84
--- NOTE | 2017-02-14 15:47 | Discharge Summary ---
Date of Encounter: 02/14/17 Time of Encounter: 10:00 - Discharge Diagnosis (1) Acute on chronic respiratory failure with hypoxia Priority: Primary Status: Acute Comments: Patient reports one-week history of increasing shortness of breath, dyspnea on exertion, weakness, activity intolerance, chest pain. Patient had an old BiPAP or CPAP machine at home that had oxygen. She states that due to change of insurance companies, she has not been using the BiPAP machine is not been maintained. She did start wearing the oxygen daily continuously to assist with her weakness and shortness of breath. She normally has only been wearing it to nap and when she sleeps at night. Patient did qualify again to have her BiPAP at night. Sats dropped to less than 88% for greater than 13 minutes. She also qualified for continuous home oxygen at 4 L. Patient has a history of CABG, morbid obesity, noncompliance with the CPAP. These are all contributing factors to her hypoxia. She said she checked her O2 sat at home and she was in the 50s at one point. We will also continue her Lasix for her edema to assist with her breathing. Her lungs are clear and diminished posteriorly. There is no wheezing, rhonchi, Rales, stridor. She denies cough. She has chronic pitting edema to bilateral lower extremities, she is also being treated for cellulitis. We will continue to encourage daily weights at home, as well as decreased calorie and sodium diet, and weight control. (2) Leucocytosis Priority: Secondary Status: Chronic Comments: Chronic. Patient has been seen by oncology for this in the past. She will follow up outpatient to continue therapy. Qualifiers: Leukocytosis type: unspecified Qualified Code(s): D72.829 - Elevated white blood cell count, unspecified (3) Chest pain Priority: Secondary Status: Acute Comments: Patient reported one-week history of midsternal pressure with nausea. It was accompanied by exertion. She also experienced shortness of breath and activity intolerance. She describes it as a heavy pressure. Troponins were negative, EKG normal sinus rhythm with no acute ST changes. Patient had a left heart catheter and October with preserved EF and normal arteries. Echo done this visit shows LVEF 65% with normal systolic function, evidence of mild diastolic dysfunction and no PFO or pulmonary hypertension. Patient continued to have exertional chest pain yesterday, however she denies today. Qualifiers: Chest pain type: chest pain on breathing Qualified Code(s): R07.1 - Chest pain on breathing (4) Cellulitis Priority: Secondary Status: Acute Comments: Chronic. On Keflex will continue. Qualifiers: Site of cellulitis of extremity: lower extremity Laterality: left Qualified Code(s): L03.116 - Cellulitis of left lower limb (5) Hypokalemia Priority: Secondary Status: Acute Comments: Potassium remains 3.2 despite multiple doses of potassium. Will send patient home on K-Dur for a week. (6) RAMO (obstructive sleep apnea) Priority: Secondary Status: Chronic Comments: Patient has qualified for CPAP at home at home. Supplies will be delivered today. (7) DVT prophylaxis Priority: Secondary Status: Acute Comments: Lovenox subcutaneous daily. (8) Diabetes Priority: Secondary Status: Chronic Comments: Patient reports that she is attempting to lose weight and trying to adhere to strict diet. A1c has decreased from 10.6-8.8. She also reports a 32 pound weight loss. Will continue her home medications and Accu-Cheks. Qualifiers: Diabetes mellitus type: type 2 Diabetes mellitus complication status: without complication Diabetes mellitus assisted insulin use: without extermination supervisor use Qualified Code(s): E11.9 - Type 2 diabetes mellitus without complications (9) Murmur, cardiac Priority: Secondary Status: Chronic (10) Acute superficial venous thrombosis of left lower extremity Priority: Secondary Status: Acute Comments: Per venous Doppler. Superficial venous thrombosis below the knee in the left greater saphenous. Patient denies pain. There is no increased redness or swelling. Bilateral lower extremities are edematous already due to chronic edema and cellulitis. She will continue aspirin 81 mg daily at home, she has been given HIMANSHU hose and is wearing them. I did discuss with her applying warm compresses to the area and trying to maintain elevation as much as possible. - Discharge Medications Prescriptions: cephALEXin [Keflex] 500 mg PO Q6HR #24 capsule Potassium Chloride Elixir [Potassium Chloride] 20 meq PO DAILY #5 mls Home Medications: Albuterol Sulfate [Proair Respiclick] 2 inh IH Q4H PRN 06/21/16 [History] Aspirin [Lo-Dose Aspirin EC] 81 mg PO DAILY 06/21/16 [History] Atenolol/Chlorthalidone [Tenoretic 50 Tablet] 1 each PO DAILY 06/21/16 [History] Atorvastatin Calcium [Lipitor] 20 mg PO DAILY 06/21/16 [History] Fluticasone/Salmeterol [Advair 250-50 Diskus] 1 each IH BID 06/21/16 [History] Glimepiride [Amaryl] 4 mg PO BID 06/21/16 [History] Insulin NPH Hum/Reg Insulin Hm [Novolin 70-30 100 Unit/ml Vial] 55 - 75 unit SQ BID 06/21/16 [History] Ipratropium/Albuterol Neb [Duoneb] 3 ml IH Q6HR PRN 06/21/16 [History] Nitroglycerin 0.4 mg SL Q5-6MIN PRN 06/21/16 [History] Oxycodone HCl/Acetaminophen [Percocet 5-325 mg Tablet] 1 - 2 tab PO Q4-6H PRN [History] Pregabalin [Lyrica] 200 mg PO BID 06/21/16 [History] Furosemide [Lasix] 20 mg PO DAILY 02/12/17 [History] Metformin HCl [Metformin HCl ER] 1,000 mg PO BID 02/12/17 [History] Aspirin Enteric Coated [Aspirin EC] 81 mg PO DAILY #0 tablet. 02/14/17 [Rx] Potassium Chloride Elixir [Potassium Chloride] 20 meq PO DAILY #5 mls 02/14/17 [ Rx] cephALEXin [Keflex] 500 mg PO Q6HR #24 capsule 02/14/17 [Rx] Allergies/Adverse Reactions: Allergies SLOAN Inhibitors Adverse Reaction (Verified 02/12/17 13:42) Cough enalapril Adverse Reaction (Verified 02/12/17 13:42) Cough Date of admission: 02/14/17 13:14 Primary care physician: Nomi Valle MD Discharging clinician: Regina Casper Anticipated date of discharge: 02/14/17 - Patient Status Disposition: Home, Self-Care Condition: Good Functional capacity at discharge: independent ambulation Overall status at discharge: patient is progressing back to baseline - Discharge Instructions Follow Up With: Nomi Valle MD [Primary Care Provider] - Additional Instructions: Please follow-up with Dr. Valle in the next week to 10 days for a hospital follow-up visit. Continue home medications. Taking her Keflex every 6 hours until they are gone. Please adhere to a low carb, low-fat, low-sodium diet. Take your aspirin every day, wear your HIMANSHU hose, elevate her leg, and apply warm compresses. Where your oxygen as prescribed, where your BiPAP at night Take her potassium as prescribed, have your lab drawn as ordered. Please return to the emergency room as needed for any other problems or concerns or if he began having chest pain or increased shortness of breath. - Diet and Activity Activity: wear oxygen at all times Diet: diabetic diet, low fat, low cholesterol, low salt diet Hospital course: Ms. Bowers is a 61 year old female with history of obstructive sleep apnea, diabetes, chronic cellulitis, hypertension, hyperlipidemia,COPD. Patient reports one-week history of midsternal chest heaviness, nausea, shortness of breath, weakness, activity intolerance, increased oxygen demand. She came to the emergency department for evaluation due to the fact that she had never needed oxygen before. Patient changed insurances several years ago and her CPAP at home was not maintained. She did however have oxygen that she was to wear while she was napping or sleeping at night. She noticed that she needed to wear it throughout the day and her room air sats were in the 50s at home. When she arrived here she was hypoxic and has required supplemental oxygen at 4 L continuously. She also stated overnight pulse ox that qualified her again for her BiPAP. She was less than 88% for 13 minutes during the night. Chest x- ray was negative for PE, chest x-ray negative for any acute cardiopulmonary processes. BP is 98% and patient does have edema that she says is chronic and unchanged. She also has cellulitis to bilateral lower extremities, as well as a superficial venous venous thrombosis to her left greater saphenous. Patient is being treated with Keflex for the cellulitis, she will also continue it at home. Echocardiogram shows preserved function, normal systolic function, mild diastolic dysfunction and no pulmonary hypertension. Patient reports intentional 32 pound weight loss as well as a decrease in her A1c to 8.8 from 10. Patient will continue her normal home medications and Accu- Cheks. Patient has chronic leukocytosis and is at baseline during this stay. She follows up outpatient with oncology for this. This is stable condition. Patient has been hypokalemic with potassium of 3.2 after multiple by mouth supplements. I will send her home with a prescription for a few days and patient will need a retrial when she follows up with primary care. Her vitals up in stable, labs other than what has been discussed within normal limits. Pt is stable and appropriate for discharge. - Time Spent with Patient Total time spent providing and/or coordinating discharge services: Less than 30 minutes - Constitutional Vitals: Temp Pulse Resp BP Pulse Ox 98.2 F 66 16 136/84 93 02/14/17 14:46 02/14/17 14:46 02/14/17 14:46 02/14/17 14:46 02/14/17 14:46 General appearance: Present: A&O X 3, morbidly obese, pleasant, no acute distress, answers questions appropriately - Head Head exam: Present: normal inspection - Eye Eye exam: Present: normal appearance, conjuntiva pink - ENT ENT exam: Present: normal exam. Absent: mucous membranes moist, normal external ear exam - Neck Neck exam general surgery: Present: normal inspection. Absent: lymphadenopathy , tenderness - Cardiovascular Cardiovascular exam: Present: systolic murmur. Absent: clicks, gallop, tachycardia - GI/Abdominal GI/Abdominal exam: Present: distended, soft. Absent: firm, hepatomegaly, tenderness - Extremities Exam Extremities exam: Present: normal capillary refill, normal inspection, warm, radial pulses palpable and symetrical. Absent: pedal edema, tenderness - Neurological Exam Neurological exam: Present: alert, oriented X3, no focal deficits, strengths equal and symetr throughout. Absent: facial droop, speech deficit
== END 2017-02-14 19:15 | disposition home or self-care (01) | DRG 189 ==
LOC: EMEROO 09:28 → 3BNU 09:28
PROVIDERS: ADMIT Internal Medicine; ATTEND Registered Nurse

== ENCOUNTER 2017-07-21 20:17 | Observation (INO) ==
[2017-07-21 21:07] LABS: Basophils # 0.1 K/mcL (0.0-0.2); Basophils % 0.4 %; Eosinophils # 0.5 K/mcL (0.0-0.6); Eosinophils % 3.4 %; Hematocrit 41.1 % (35.3-44.9); Hemoglobin 13.2 g/dL (11.5-15.4); Immature Granulocytes % 0.7 % (0-4); Lymphocytes # 3.5 K/mcL (0.6-4.6); Lymphocytes % 25.3 %; Mean Corpuscular HGB Conc 32.1 g/dL (31.6-35.5); Mean Corpuscular Hemoglobin 30.8 pg (28.0-33.3); Mean Platelet Volume 9.9 fL (9.4-12.4); Monocytes # 0.8 K/mcL (0.0-1.3); Monocytes % 5.8 %; Neutrophils # 8.9 K/mcL (1.6-8.9); Platelet Count 276 K/mcL (140-400); Red Blood Count 4.28 M/mcL (3.82-4.97); Red Cell Distribution Width 15.7 % (11.5-14.5); Segmented Neutrophils % 64.4 %
--- NOTE | 2017-07-21 21:07 | Emergency Department Note ---
START Narrative - START START: I examined this patient and my medical decision-making was reviewed with the Resident Physician. I agree with the documented findings, disposition and treatment plan as described except to the extent set forth below. 61 year old female presents to the ED with complaints of LLE swelling. She has a history of chronic LLLE anterior tibila cellulitis with ezcematic changes and states that she has noticed that her left upper thigh is now swollen with radaition into her lower leg and has deceloepd increased shortness of breath and chest pain that started inthe past few days. Apryl states that she has asthma at home and does have supplemental oxygen therapy. We will do labs/ CT/ US to rule out DVT/PE and other cardiopulmoanry pathologies. She denies fevers.
[2017-07-21] MEDS ORDERED: Ipratropium/Albuterol Neb 3 ML IH ONE (21:11)
[2017-07-21 21:13] LABS: INR 1.1; Prothrombin Time 11.9 Seconds (9.4-12.1)
[2017-07-21 21:15] LABS: Activated Partial Thrombo Time 26.6 Seconds (26.0-36.0)
[2017-07-21 21:20] LABS: BUN/Creatinine Ratio 15 (6-26); Blood Urea Nitrogen 15 mg/dL (7-20); Calcium 9.6 mg/dL (8.6-10.8); Carbon Dioxide 38 mEq/L (19-29); Chloride 88 mEq/L (98-109); Glucose 200 mg/dL (70-99); Osmolality,Calculated 292 (280-300); Sodium 138 mEq/L (136-145); eGFR For African Americans > 60 (> 60); eGFR For Non-African Americans 55 (> 60)
[2017-07-21 21:23] LABS: Potassium 2.5 mEq/L (3.5-4.5)
[2017-07-21 21:53] LABS: Thyroid Stimulating Hormone 3.748 mcIU/mL (0.350-4.840)
[2017-07-21] MEDS ORDERED: methylPREDNISolone 125 MG/2 ML VIAL IVP ONE (23:18)
[2017-07-21] MEDS ORDERED: cefTRIAXone 1,000 MG in Water for inj. (sterile) 10 ML IVP ONE (23:19)
--- NOTE | 2017-07-21 23:22 | Emergency Department Note ---
Disposition Clinical Impression: Respiratory distress, Hypokalemia Cellulitis Qualifiers: Site of cellulitis of extremity: lower extremity Laterality: left Qualified Code(s): L03.116 - Disposition: Admitted As Inpatient General Adult HPI - General Chief complaint: ED Chest Pain Stated complaint: "STEPHAN/CP/Bilat Swollen Legs" Time Seen by Provider: 07/21/17 20:32 Source: patient, family Limitations: no limitations Nursing Notes Reviewed: Yes Vital Signs Reviewed: Yes - History of Present Illness HPI Narrative: Patient presents for evaluation of multiple complaints. Patient has a history of asthma on liters of oxygen at home. Patient has a history of chronic lower left leg nonhealing wounds. The patient has been experiencing over the last 2 weeks increase in overall shortness of breath and exertional capacity. She describes a tech tightness around her chest. She has had an increase in swelling of the left lower extremity with an area of erythema to the upper medial left thigh. Patient has a history of neck causing fasciitis including the right groin region that was years ago. Patient has had intermittent fevers. Overall the patient is going to need evaluated for cardiac, pulmonary, infectious etiology and rule out DVT. Pain Scale: 0 - Related Data Home Medications Medication Instructions Recorded Confirmed Albuterol Sulfate [Proair 2 puff IH Q4H PRN 06/21/16 04/24/17 Respiclick] Aspirin [Lo-Dose Aspirin EC] 81 mg PO DAILY 06/21/16 04/24/17 Atenolol/Chlorthalidone [Tenoretic 1 each PO DAILY 06/21/16 04/24/17 50 Tablet] Atorvastatin Calcium [Lipitor] 20 mg PO DAILY 06/21/16 04/24/17 Fluticasone/Salmeterol [Advair 1 each IH BID 06/21/16 04/24/17 250-50 Diskus] Glimepiride [Amaryl] 4 mg PO BID 06/21/16 04/24/17 Insulin NPH Hum/Reg Insulin Hm 75 unit SQ QAM 06/21/16 04/24/17 [Novolin 70-30 100 Unit/ml Vial] Ipratropium/Albuterol Neb [Duoneb] 3 ml IH Q6HR PRN 06/21/16 04/24/17 Nitroglycerin 0.4 mg SL Q5-6MIN PRN 06/21/16 04/24/17 Oxycodone HCl/Acetaminophen 1 - 2 tab PO Q4-6H PRN 06/21/16 04/24/17 [Percocet 5-325 mg Tablet] Pregabalin [Lyrica] 200 mg PO BID 06/21/16 07/22/17 Furosemide [Lasix] 20 mg PO DAILY 02/12/17 07/22/17 Metformin HCl [Metformin HCl ER] 1,000 mg PO BID 02/12/17 07/22/17 Insulin NPH Hum/Reg Insulin Hm 55 unit SQ QPM 04/24/17 04/24/17 [Novolin 70-30 100 Unit/ml Vial] Previous Rx's Medication Instructions Recorded Potassium Chloride Elixir 20 meq PO DAILY #5 mls 02/14/17 [Potassium Chloride] Amoxicillin/Clavulanate [Augmentin] 875 mg PO TID #21 tab 04/28/17 Clindamycin [Cleocin] 600 mg PO TID #84 capsule 04/28/17 Allergies Allergy/AdvReac Type Severity Reaction Status Date / Time SLOAN Inhibitors AdvReac Cough Verified 07/21/17 20:18 enalapril AdvReac Cough Verified 07/21/17 20:18 Review of Systems: CONSTITUTIONAL: Fevers, chills, fatigue, generalized weakness No weight loss HEENT: Eyes: No visual changes. Ears, Nose, Throat: No hearing loss, difficulty talking or unable to swallow. SKIN: No rash or itching. CARDIOVASCULAR: Chest tightness RESPIRATORY: Shortness of breath and cough GASTROINTESTINAL: No anorexia, nausea, vomiting or diarrhea. No abdominal pain or blood. GENITOURINARY: No burning on urination or hematuria. NEUROLOGICAL: No headache, dizziness, syncope, paralysis, ataxia, numbness or tingling in the extremities. No change in bowel or bladder control. MUSCULOSKELETAL: No muscle pain, back pain, joint pain or stiffness. Past Medical History - Past Medical History Medical history: Reports: asthma, cardiomyopathy, diabetes, hypertension, other Surgical history: Reports: other (Back surgery, surgery for necrotizing fasciitis of right groin) Psychiatric history: Reports: no psych history PARIMUTUEL TICKET CHECKER history: Reports: no PARIMUTUEL TICKET CHECKER history - Social History Smoking Status: Never smoker Smokeless Tobacco Status: No Alcohol use: Reports: none Drug use: Reports: none Physical Exam General appearance: NAD, conversant; obesity Eyes: anicteric sclerae, moist conjunctivae; PERRL HENT: Atraumatic; oropharynx clear with moist mucous membranes and no mucosal ulcerations Neck: Normal inspection; Trachea midline; FROM, supple Lungs: CTA, with overall decreased lung sounds. CV: RRR, no MRGs Abdomen: Soft, non-tender; no rebound or gaurding Extremities: No peripheral edema or extremity lymphadenopathy Skin: Lower extremities swollen bilaterally with left greater than right. Chronic wound to the left which is unchanged from previous per her and family. Left upper thigh with erythema. DVT ultrasound negative. More likely cellulitis. Psych: Appropriate mood and affect Neuro: alert and oriented to person, place and time - General Limitations: no limitations General appearance: alert, in no apparent distress Course - Reevaluation(s) Reevaluation #1: Patient with mild improvement with breathing treatment. DVT study negative. PE study negative. Concern for asthma and inflammation on CTA. Patient has significant hypokalemia with replacement of 60 mEq given by mouth. Patient DVT study negative so erythema is concerning for cellulitis. Patient has a slight leukocytosis. Ceftriaxone given. Patient will be admitted for further evaluation. Vital Signs Temperature 99.4 F 07/21/17 20:18 Pulse Rate 83 07/21/17 20:18 Respiratory Rate 22 07/21/17 20:18 Blood Pressure 136/78 07/21/17 20:18 O2 Sat by Pulse Oximetry 91 07/21/17 20:18 Temperature 97.5 F L 07/22/17 04:13 Pulse Rate 87 07/22/17 04:13 Respiratory Rate 16 07/22/17 04:13 Blood Pressure 129/81 07/22/17 04:13 O2 Sat by Pulse Oximetry 92 07/22/17 04:13 Oxygen Delivery Oxygen Delivery Nasal Cannula Medical Decision Making - Medical Records Medical records reviewed: Yes I reviewed the patient's medical records. - Lab Data Lab results reviewed: Yes I reviewed the patient's lab results. Result diagrams: 07/22/17 04:19 07/22/17 04:19 Lab Results 07/21/17 07/21/17 07/21/17 Range/Units 20:54 20:54 20:54 WBC 13.8 H (4.3-11.1) K/mcL RBC 4.28 (3.82-4.97) M/mcL Hgb 13.2 (11.5-15.4) g/dL Hct 41.1 (35.3-44.9) % MCV 96.0 (83.0-100.0) fL MCH 30.8 (28.0-33.3) pg MCHC 32.1 (31.6-35.5) g/dL RDW 15.7 H (11.5-14.5) % Plt Count 276 (140-400) K/mcL MPV 9.9 (9.4-12.4) fL Immature Gran % 0.7 (0-4) % Seg Neutrophils % 64.4 % Lymphocytes % 25.3 % Monocytes % 5.8 % Eosinophils % 3.4 % Basophils % 0.4 % Neutrophils # 8.9 (1.6-8.9) K/mcL Lymphocytes # 3.5 (0.6-4.6) K/mcL Monocytes # 0.8 (0.0-1.3) K/mcL Eosinophils # 0.5 (0.0-0.6) K/mcL Basophils # 0.1 (0.0-0.2) K/mcL PT 11.9 (9.4-12.1) Seconds INR 1.1 APTT 26.6 (26.0-36.0) Seconds Sodium 138 (136-145) mEq/L Potassium 2.5 L* (3.5-4.5) mEq/L Chloride 88 L (98-109) mEq/L Carbon Dioxide 38 H (19-29) mEq/L BUN 15 (7-20) mg/dL Creatinine 1.03 (0.57-1.11) mg/dL Est GFR ( Amer) > 60 (> 60) Est GFR (Non-Af Amer) 55 L (> 60) BUN/Creatinine Ratio 15 (6-26) Glucose 200 H (70-99) mg/dL POC Glucose (58-89) Calculated Osmolality 292 (280-300) Calcium 9.6 (8.6-10.8) mg/dL Troponin I (0-0.03) ng/mL B-Natriuretic Peptide (0-100) pg/mL TSH 3.748 (0.350-4.840) mcIU/mL 07/21/17 07/21/17 07/22/17 Range/Units 20:54 20:54 00:32 WBC (4.3-11.1) K/mcL RBC (3.82-4.97) M/mcL Hgb (11.5-15.4) g/dL Hct (35.3-44.9) % MCV (83.0-100.0) fL MCH (28.0-33.3) pg MCHC (31.6-35.5) g/dL RDW (11.5-14.5) % Plt Count (140-400) K/mcL MPV (9.4-12.4) fL Immature Gran % (0-4) % Seg Neutrophils % % Lymphocytes % % Monocytes % % Eosinophils % % Basophils % % Neutrophils # (1.6-8.9) K/mcL Lymphocytes # (0.6-4.6) K/mcL Monocytes # (0.0-1.3) K/mcL Eosinophils # (0.0-0.6) K/mcL Basophils # (0.0-0.2) K/mcL PT (9.4-12.1) Seconds INR APTT (26.0-36.0) Seconds Sodium (136-145) mEq/L Potassium (3.5-4.5) mEq/L Chloride (98-109) mEq/L Carbon Dioxide (19-29) mEq/L BUN (7-20) mg/dL Creatinine (0.57-1.11) mg/dL Est GFR ( Amer) (> 60) Est GFR (Non-Af Amer) (> 60) BUN/Creatinine Ratio (6-26) Glucose (70-99) mg/dL POC Glucose 223 H (58-89) Calculated Osmolality (280-300) Calcium (8.6-10.8) mg/dL Troponin I 0.02 (0-0.03) ng/mL B-Natriuretic Peptide 77 (0-100) pg/mL TSH (0.350-4.840) mcIU/mL - Radiology Data Radiology results reviewed: Yes I reviewed the patient's radiology results.
--- NOTE | 2017-07-22 01:56 | Internal Med History&Physical ---
Date of Encounter: 07/22/17 Time of Encounter: 23:00 Assessment and Plan (1) Acute superficial venous thrombosis of left lower extremity Current visit: No Status: Acute -Patient with increased left lower extremity swelling more prominent in the popliteal region. -In the ER, results of lower extremity Doppler was negative for DVT BUT positive for SVT in the Left Lower Extremity in the Varicosities behind the knee and around the knee area; CTPA negative for PE. -Will treat patient with therapeutic Lovenox until size of the clot is known; the clot is distal and not proximal but size will determine if patient needs to be on anticoagulation therapy. -Await final results of lower extremity Doppler. (2) Dyspnea Current visit: No Status: Resolved -Patient not short of breath on exam and is on baseline supplemental O2 requirements. Qualifiers: Dyspnea type: unspecified Qualified Code(s): R06.00 - Dyspnea, unspecified (3) Chronic respiratory failure with hypoxia, on home O2 therapy Current visit: Yes Status: Acute -Patient on baseline O2 requirements as above (4) Hypokalemia Current visit: No Status: Acute -Patient also found to have hypokalemia with a potassium of 2.5. -Will give potassium supplementation. (5) Hypertension Current visit: Yes Status: Acute -Controlled; continue home medications. Qualifiers: Hypertension type: essential hypertension Qualified Code(s): I10 - Essential (primary) hypertension (6) HLD (hyperlipidemia) Current visit: Yes Status: Acute -Continue statin. Qualifiers: Hyperlipidemia type: unspecified Qualified Code(s): E78.5 - Hyperlipidemia , unspecified (7) RAMO (obstructive sleep apnea) Current visit: No Status: Chronic -CPAP daily at bedtime. (8) Obesity Current visit: Yes Status: Acute -Lifestyle modifications. Qualifiers: Body mass index: BMI 50.0-59.9 Qualified Code(s): E66.9 - Obesity, unspecified; Z68.43 - Body mass index (BMI) 50-59.9 , adult; Z68.43 - Body mass index (BMI) 50-59.9 , adult; Z68.43 - Body mass index (BMI) 50-59.9 , adult; Z68.43 - Body mass index (BMI) 50-59.9 , adult (9) Diabetes Current visit: No Status: Chronic -Blood glucose levels controlled; continue home medications. Qualifiers: Diabetes mellitus type: type 2 Diabetes mellitus complication status: without complication Diabetes mellitus remote computer terminal operator insulin use: without custodial use Qualified Code(s): E11.9 - Type 2 diabetes mellitus without complications (10) DVT prophylaxis Current visit: No Status: Acute -Therapeutic Lovenox as above. Internal Medicine - H&P: HPI Admitted From: Home Plans for Post Hospital Care: Home History of present illness: Patient is a 61-year-old female with past medical history significant for chronic respiratory failure (3 L of continuous nasal cannula), insulin- dependent diabetes with diabetic peripheral neuropathy, hypertension, hyperlipidemia and obesity (BMI 50.5) who presents to the ER on 07/21/17 due to shortness of breath and left lower extremity edema. Patient reports of shortness of breath for the last 2 weeks on exertion in addition to not productive cough. Patient also reports increased left lower extremity edema over the last couple months and states that it is not warm to touch. Patients family convinced her to come to the ER for evaluation. In the ER, results of lower extremity Doppler was negative for DVT BUT positive for SVT in the Left Lower Extremity in the Varicosities behind the knee and around the knee area; CTPA negative for PE. In addition patient also found to have hypokalemia with a potassium of 2.5. Patient will be admitted to the medical surgical floor for management of superficial thrombosis and hypokalemia. Past Med Surg Social Fam HX - Past Medical History Medical history: asthma, cardiomyopathy, diabetes, hypertension, other Psychiatric history: no psych history - Past Surgical History Surgical History: other - Social History Smoking Status: Never smoker Smokeless Tobacco Status: No Alcohol use: none Drug use: none - Family History Mother Living Status: Still Living Hx Family Cardiac Disorders: Yes (stents, pacemaker) Hx Family Respiratory Disorders: Yes Hx Family Cancer: Yes (uterine cancer) Hx Family GI Disorders: No Hx Family Endocrine Disorder: Yes (DM, thyroid) Hx Family Neuromuscular Disorders: No Hx Family Neurologic Disorders: No Hx Family HEENT Disorders: No Hx Family Autoimmune Disorders: No Father Living Status: Still Living Hx Family Cardiac Disorders: Yes (mi, pacemaker) Hx Family Respiratory Disorders: Yes (COPD) Hx Family Cancer: No Hx Family GI Disorders: Yes Hx Family Endocrine Disorder: Yes (DM) Hx Family Neuromuscular Disorders: No Hx Family Neurologic Disorders: Yes (CVA) Hx Family HEENT Disorders: No Hx Family Autoimmune Disorders: No Internal Medicine - H&P: Meds Albuterol Sulfate [Proair Respiclick] 2 puff IH Q4H PRN 06/21/16 [History] Aspirin [Lo-Dose Aspirin EC] 81 mg PO DAILY 06/21/16 [History] Atenolol/Chlorthalidone [Tenoretic 50 Tablet] 1 each PO DAILY 06/21/16 [History] Atorvastatin Calcium [Lipitor] 20 mg PO DAILY 06/21/16 [History] Fluticasone/Salmeterol [Advair 250-50 Diskus] 1 each IH BID 06/21/16 [History] Glimepiride [Amaryl] 4 mg PO BID 06/21/16 [History] Insulin NPH Hum/Reg Insulin Hm [Novolin 70-30 100 Unit/ml Vial] 75 unit SQ QAM 06/21/16 [History] Ipratropium/Albuterol Neb [Duoneb] 3 ml IH Q6HR PRN 06/21/16 [History] Nitroglycerin 0.4 mg SL Q5-6MIN PRN 06/21/16 [History] Oxycodone HCl/Acetaminophen [Percocet 5-325 mg Tablet] 1 - 2 tab PO Q4-6H PRN [History] Pregabalin [Lyrica] 200 mg PO BID 06/21/16 [History] Furosemide [Lasix] 20 mg PO DAILY 02/12/17 [History] Metformin HCl [Metformin HCl ER] 1,000 mg PO BID 02/12/17 [History] Potassium Chloride Elixir [Potassium Chloride] 20 meq PO DAILY #5 mls 02/14/17 [ Rx] Insulin NPH Hum/Reg Insulin Hm [Novolin 70-30 100 Unit/ml Vial] 55 unit SQ QPM 04/24/17 [History] Amoxicillin/Clavulanate [Augmentin] 875 mg PO TID #21 tab 04/28/17 [Rx] Clindamycin [Cleocin] 600 mg PO TID #84 capsule 04/28/17 [Rx] 3 Allergy/AdvReac Type Severity Reaction Status Date / Time SLOAN Inhibitors AdvReac Cough Verified 07/21/17 20:18 enalapril AdvReac Cough Verified 07/21/17 20:18 All Systems PM: A 10-system review of systems was performed and is negative for pertinent findings except as documented above in the HPI. - Constitutional Vitals: Temp Pulse Resp BP Pulse Ox 98.2 F 82 17 134/58 91 07/22/17 00:00 07/22/17 00:00 07/22/17 00:00 07/22/17 00:00 07/22/17 00:00 General appearance: Present: A&O X 3 - Head Head exam: Present: normocephalic - Eye Eye exam: Present: normal appearance - ENT ENT exam: Present: mucous membranes moist - Respiratory Respiratory exam: Present: CTAB. Absent: accessory muscle use, rales, rhonchi, wheezes - Cardiovascular Cardiovascular exam: Present: RRR, +S1, +S2. Absent: diastolic murmur, gallop, rubs, systolic murmur - GI/Abdominal Additional comments: Obesed abdomen - Expanded Lower Extremities Exam Lower Leg exam: Present: swelling, tenderness (Left lower extremity that is more pronounced in the popliteal region) - Neurological Exam Neurological exam: Present: alert, oriented X3 - Psychiatric Psychiatric exam: Present: normal mood - Skin Additional comments: Chronic right lower extremity skin changes due to chronic edema Internal Med - H&P Results - Labs CBC & Chem 7: 07/21/17 20:54 07/21/17 20:54
[2017-07-22] MEDS ORDERED: Naloxone 0.4 MG/ML INJ IVP PRN (02:12)
[2017-07-22 04:47] LABS: Basophils # 0.1 K/mcL (0.0-0.2); Basophils % 0.5 %; Eosinophils % 0.3 %; Hematocrit 41.3 % (35.3-44.9); Immature Granulocytes % 1.2 % (0-4); Lymphocytes # 0.8 K/mcL (0.6-4.6); Lymphocytes % 6.2 %; Mean Corpuscular HGB Conc 31.5 g/dL (31.6-35.5); Mean Corpuscular Hemoglobin 30.5 pg (28.0-33.3); Mean Corpuscular Volume 96.9 fL (83.0-100.0); Mean Platelet Volume 10.3 fL (9.4-12.4); Monocytes # 0.2 K/mcL (0.0-1.3); Monocytes % 1.3 %; Neutrophils # 11.8 K/mcL (1.6-8.9); Nucleated Red Blood Cells 0.2 /100 WBC (0); Platelet Count 223 K/mcL (140-400); Red Blood Count 4.26 M/mcL (3.82-4.97); Red Cell Distribution Width 15.8 % (11.5-14.5); Segmented Neutrophils % 90.5 %
[2017-07-22 04:59] LABS: BUN/Creatinine Ratio 16 (6-26); Blood Urea Nitrogen 16 mg/dL (7-20); Calcium 8.9 mg/dL (8.6-10.8); Carbon Dioxide 33 mEq/L (19-29); Chloride 90 mEq/L (98-109); Glucose 318 mg/dL (70-99); Osmolality,Calculated 293 (280-300); Potassium 3.1 mEq/L (3.5-4.5); Sodium 135 mEq/L (136-145); eGFR For African Americans > 60 (> 60); eGFR For Non-African Americans 57 (> 60)
[2017-07-22] MEDS ORDERED: *HR* Enoxaparin 150 MG/ML SYRINGE SQ SCH (06:00)
[2017-07-22] MEDS ORDERED: D5% in Water 1,000 ML IVC PRN (06:40)
[2017-07-22] MEDS ORDERED: Dextrose Gel 15 GM PO PRN ×2 (06:40)
[2017-07-22] MEDS ORDERED: *HR* Dextrose 50 % in Water (Syg) 50 ML SYRINGE IVP PRN (06:40)
[2017-07-22] MEDS: Insulin LISPRO 300 UNITS/3 ML VIAL SQ SCH ×3 (07:59→16:54)
[2017-07-22] MEDS ORDERED: 0.9 % Sodium Chloride 250 ML ONE (08:13)
[2017-07-22] MEDS ORDERED: Nitroglycerin 0.4 MG TAB.SUBL SL PRN (08:42)
[2017-07-22] MEDS ORDERED: Ipratropium/Albuterol Neb 3 ML IH PRN ×2 (08:42→16:09)
[2017-07-22] MEDS ORDERED: ALBUTEROL IH PRN (08:42)
[2017-07-22] MEDS ORDERED: *HR* Glimepiride 4 MG TABLET PO SCH (09:00)
[2017-07-22] MEDS ORDERED: Budesonide/Formoterol 80/4.5 MDI IH SCH (09:00)
[2017-07-22] MEDS: *HR* Metformin 500 MG TABLET PO SCH ×2 (10:08→17:05)
[2017-07-22] MEDS: Topiramate 25 MG TABLET PO SCH ×2 (10:08→20:56)
[2017-07-22] MEDS: Pregabalin 50 MG CAPSULE PO SCH ×2 (10:09→20:56)
[2017-07-22] MEDS: Insulin NPH/REG 70/30 100 UNIT/ML (x5UNIT) SQ SCH (10:09)
[2017-07-22] MEDS: Aspirin Enteric Coated 81 MG Tablet PO SCH (10:09)
[2017-07-22 13:41] LABS: Hemoglobin A1C 9.1 %
--- NOTE | 2017-07-22 16:02 | Internal Med Progress Note ---
Date of Encounter: 07/22/17 Time of Encounter: 15:58 - Assessment and plan (1) Cellulitis Current Visit: Yes Status: Acute Assessment and plan: Cont IV abx Rocephin Improving Qualifiers: Site of cellulitis of extremity: lower extremity Laterality: left Qualified Code(s): L03.116 - Cellulitis of left lower limb (2) Hypokalemia due to loss of potassium Current Visit: Yes Status: Acute Assessment and plan: Due to diuretics held cholrthalidone cont replacing K + (3) Acute superficial venous thrombosis of left lower extremity Current Visit: No Status: Acute Assessment and plan: Reviewed venous doppler prelim results waiting on official result reviewed old record from 03/24 No clots noticed No need of anti coag for superficial thrombosis (4) DVT prophylaxis Current Visit: No Status: Acute Assessment and plan: on Lovenox SQ (5) Diabetes Current Visit: No Status: Chronic Assessment and plan: resumed home meds Qualifiers: Diabetes mellitus type: type 2 Diabetes mellitus complication status: without complication Diabetes mellitus custodial insulin 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 Qualified Code(s): E11.9 - Type 2 diabetes mellitus without complications (6) Hypertension Current Visit: Yes Status: Chronic Assessment and plan: stable with home meds Qualifiers: Hypertension type: essential hypertension Qualified Code(s): I10 - Essential (primary) hypertension (7) HLD (hyperlipidemia) Current Visit: Yes Status: Chronic Assessment and plan: on statins Qualifiers: Hyperlipidemia type: unspecified Qualified Code(s): E78.5 - Hyperlipidemia , unspecified (8) Obesity Current Visit: Yes Status: Chronic Assessment and plan: counseled to loose weight Qualifiers: Body mass index: BMI 50.0-59.9 Qualified Code(s): E66.9 - Obesity, unspecified; Z68.43 - Body mass index (BMI) 50-59.9 , adult; Z68.43 - Body mass index (BMI) 50-59.9 , adult; Z68.43 - Body mass index (BMI) 50-59.9 , adult; Z68.43 - Body mass index (BMI) 50-59.9 , adult (9) Chronic respiratory failure with hypoxia, on home O2 therapy Current Visit: Yes Status: Acute Assessment and plan: stable not in exacerbation (10) RAMO (obstructive sleep apnea) Current Visit: No Status: Chronic Assessment and plan: Recommend to use her home BiPAP - Subjective Interval history: Ms. Bowers is a 61 y/o F with known PMH of Morbid obesity, HTN, HLD, Chronic resp failure on 3 lit home o2 dependent, Hypoventilation syndrome, RAMO on BiPAP at bed time, DM2, Chronic superficial Left leg venous thrombosis presented to ER with abdominal pain, Left leg swelling, erythema and pain. She was give IV Rocephin in the ER suspecting Left leg cellulities. Also she had venous doppler done which showed same chronic Left leg superficial VT. Pt stated she is feeling little better today. Denied any CP. her SOB also at baseline - Constitutional Vitals: Temp Pulse Resp BP Pulse Ox 98.2 F 81 18 129/53 94 07/22/17 11:06 07/22/17 11:06 07/22/17 11:06 07/22/17 11:06 07/22/17 11:06 General appearance: Present: A&O X 3, no acute distress, answers questions appropriately - Head Head exam: Present: atraumatic, normal inspection - Respiratory Respiratory exam: Present: decreased breath sounds, wheezes (mild). Absent: rales, respiratory distress, rhonchi - Cardiovascular Cardiovascular exam: Present: RRR, +S1, +S2. Absent: systolic murmur - GI/Abdominal GI/Abdominal exam: Present: distended, soft. Absent: pulsatile mass, rebound, rigid, tenderness - Extremities Exam Extremities exam: Present: pedal edema (1+), tenderness (mild tenderness in Left popliteal region. Mild erythema over Left ceballos area). Absent: calf tenderness - Back Exam Back exam: Absent: CVA tenderness (L), CVA tenderness (R) - Neurological Exam Neurological exam: Present: alert, oriented X3 - Psychiatric Psychiatric exam: Present: normal affect, normal mood Internal Medicine: Result - Labs CBC & Chem 7: 07/22/17 04:19 07/22/17 04:19 Labs: Short CBC 07/22/17 Range/Units 04:19 WBC 13.1 H (4.3-11.1) K/mcL Hgb 13.0 (11.5-15.4) g/dL Hct 41.3 (35.3-44.9) % Plt Count 223 (140-400) K/mcL Neutrophils # 11.8 H (1.6-8.9) K/mcL BMP 07/22/17 04:19 Sodium 135 L Potassium 3.1 L Chloride 90 L Carbon Dioxide 33 H BUN 16 Creatinine 1.00 Glucose 318 H Calcium 8.9 - ABG Interpretation ABG results: PT/INR, D-dimer PT 11.9 Seconds (9.4-12.1) 07/21/17 20:54 Consult Discharge Plan - Plan Referrals: Nomi Valle MD [Primary Care Provider] - (web request 07/22/2017)
[2017-07-22] MEDS: cefTRIAXone 1,000 MG in Water for inj. (sterile) 10 ML IVP SCH (16:57)
[2017-07-22] MEDS ORDERED: Insulin NPH/REG 70/30 100 UNIT/ML (x5UNIT) SQ SCH (18:00)
[2017-07-22] MEDS: Budesonide/Formoterol 80/4.5 MDI IH SCH (19:52)
[2017-07-22] MEDS ORDERED: Acetaminophen 325 MG TABLET PO PRN (20:28)
[2017-07-22] MEDS ORDERED: Insulin LISPRO 300 UNITS/3 ML VIAL SQ SCH (21:00)
--- NOTE | 2017-07-23 05:42 | Electrocardiograph Report ---
[place] [id number] Test Date: 2017-07-21 Pat Name: Yin Bowers Department: 104 Room: 2A43 Gender: F Disk Sharpener: : 1955 Requested By: Cecilia Fry Order Number: [id number] Reading MD: Carter Cabral MD Measurements Intervals [place] Rate: 82 P: -18 DE: 154 QRS: -3 QRSD: 97 T: 17 QT: 379 QTc: 418 Interpretive Statements SINUS RHYTHM MODERATE VOLTAGE CRITERIA FOR LVH, CONSIDER NORMAL VARIANT Electronically Signed On 07-23-2017 5:40:16 EST by Carter Cabral MD
[2017-07-23] MEDS ORDERED: *HR* Enoxaparin 40 MG/0.4 ML SYRINGE SQ SCH (06:00)
[2017-07-23] MEDS: Budesonide/Formoterol 80/4.5 MDI IH SCH (08:07)
[2017-07-23] MEDS: cefTRIAXone 1,000 MG in Water for inj. (sterile) 10 ML IVP SCH (08:31)
[2017-07-23] MEDS: Topiramate 25 MG TABLET PO SCH (08:32)
[2017-07-23] MEDS: Aspirin Enteric Coated 81 MG Tablet PO SCH (08:32)
[2017-07-23] MEDS: Pregabalin 50 MG CAPSULE PO SCH (08:32)
[2017-07-23] MEDS: Insulin LISPRO 300 UNITS/3 ML VIAL SQ SCH ×3 (08:34→20:00)
[2017-07-23] MEDS: Insulin NPH/REG 70/30 100 UNIT/ML (x5UNIT) SQ SCH (12:39)
[2017-07-23 15:38] VITALS: BP 134/76
[2017-07-23 16:47] LABS: Basophils # 0.1 K/mcL (0.0-0.2); Basophils % 0.6 %; Eosinophils # 0.2 K/mcL (0.0-0.6); Eosinophils % 1.4 %; Hematocrit 36.6 % (35.3-44.9); Hemoglobin 11.6 g/dL (11.5-15.4); Immature Granulocytes % 0.4 % (0-4); Immature Platelets 3.8 % (1.1-6.1); Lymphocytes # 3.3 K/mcL (0.6-4.6); Mean Corpuscular HGB Conc 31.7 g/dL (31.6-35.5); Mean Corpuscular Hemoglobin 30.7 pg (28.0-33.3); Mean Corpuscular Volume 96.8 fL (83.0-100.0); Mean Platelet Volume 10.3 fL (9.4-12.4); Monocytes # 0.7 K/mcL (0.0-1.3); Monocytes % 6.1 %; Neutrophils # 7.1 K/mcL (1.6-8.9); Platelet Count 280 K/mcL (140-400); Red Blood Count 3.78 M/mcL (3.82-4.97); Red Cell Distribution Width 15.5 % (11.5-14.5); Segmented Neutrophils % 62.5 %
[2017-07-23 17:31] LABS: BUN/Creatinine Ratio 21 (6-26); Blood Urea Nitrogen 24 mg/dL (7-20); Calcium 9.3 mg/dL (8.6-10.8); Carbon Dioxide 33 mEq/L (19-29); Chloride 95 mEq/L (98-109); Glucose 290 mg/dL (70-99); Magnesium 1.7 mg/dL (1.6-2.6); Osmolality,Calculated 301 (280-300); Sodium 138 mEq/L (136-145); eGFR For African Americans > 60 (> 60); eGFR For Non-African Americans 50 (> 60)
--- NOTE | 2017-07-23 17:53 | Discharge Summary ---
Date of Encounter: 07/28/17 Time of Encounter: 17:50 - Discharge Diagnosis (1) Cellulitis Priority: Primary Status: Acute Qualifiers: Site of cellulitis of extremity: lower extremity Laterality: left Qualified Code(s): L03.116 - Cellulitis of left lower limb (2) Hypokalemia due to loss of potassium Priority: Primary Status: Acute (3) Acute superficial venous thrombosis of left lower extremity Priority: Primary Status: Acute (4) Diabetes Priority: Secondary Status: Chronic Qualifiers: Diabetes mellitus type: type 2 Diabetes mellitus complication status: without complication Diabetes mellitus bounty trapper insulin use: without bounty trapper use Qualified Code(s): E11.9 - Type 2 diabetes mellitus without complications (5) Furuncle of buttock Priority: Secondary Status: Acute (6) Hypertension Priority: Secondary Status: Chronic Qualifiers: Hypertension type: essential hypertension Qualified Code(s): I10 - Essential (primary) hypertension (7) HLD (hyperlipidemia) Priority: Secondary Status: Chronic Qualifiers: Hyperlipidemia type: unspecified Qualified Code(s): E78.5 - Hyperlipidemia , unspecified (8) Obesity Priority: Secondary Status: Chronic Qualifiers: Body mass index: BMI 50.0-59.9 Qualified Code(s): E66.9 - Obesity, unspecified; Z68.43 - Body mass index (BMI) 50-59.9 , adult; Z68.43 - Body mass index (BMI) 50-59.9 , adult; Z68.43 - Body mass index (BMI) 50-59.9 , adult; Z68.43 - Body mass index (BMI) 50-59.9 , adult (9) Chronic respiratory failure with hypoxia, on home O2 therapy Priority: Secondary Status: Acute (10) RAMO (obstructive sleep apnea) Priority: Secondary Status: Chronic (11) DVT prophylaxis Priority: Secondary Status: Acute - Discharge Medications Prescriptions: Atenolol [Tenormin] 50 mg PO DAILY #30 tablet Cephalexin [Keflex] 500 mg PO TID #15 capsule Potassium Chloride 20 meq PO DAILY #15 tab.er.prt Home Medications: Albuterol Sulfate [Proair Respiclick] 2 puff IH Q4H PRN 06/21/16 [History] Aspirin [Lo-Dose Aspirin EC] 81 mg PO DAILY 06/21/16 [History] Atorvastatin Calcium [Lipitor] 20 mg PO DAILY 06/21/16 [History] Fluticasone/Salmeterol [Advair 250-50 Diskus] 1 each IH BID 06/21/16 [History] Glimepiride [Amaryl] 4 mg PO BID 06/21/16 [History] Ipratropium/Albuterol Neb [Duoneb] 3 ml IH Q6HR PRN 06/21/16 [History] Nitroglycerin 0.4 mg SL Q5-6MIN PRN 06/21/16 [History] Pregabalin [Lyrica] 200 mg PO BID 06/21/16 [History] Metformin HCl [Metformin HCl ER] 1,000 mg PO BID 02/12/17 [History] Meloxicam [Mobic] 15 mg PO DAILY 07/22/17 [History] Polyethylene Glycol 3350 [MiraLAX] 17 gm PO DAILY 07/22/17 [History] Rizatriptan Benzoate [Maxalt Senior Business Manager] 10 mg PO ONCE PRN 07/22/17 [History] Topiramate [Topamax] 50 mg PO BID 07/22/17 [History] Atenolol [Tenormin] 50 mg PO DAILY #30 tablet 07/23/17 [Rx] Cephalexin [Keflex] 500 mg PO TID #15 capsule 07/23/17 [Rx] Furosemide [Lasix] 20 mg PO DAILY #0 07/23/17 [Rx] Insulin NPH Hum/Reg Insulin Hm [Novolin 70-30 100 Unit/ml Vial] 70 unit SQ QPM # 0 07/23/17 [Rx] Insulin NPH Hum/Reg Insulin Hm [Novolin 70-30 100 Unit/ml Vial] 80 unit SQ QAM # 0 07/23/17 [Rx] Potassium Chloride 20 meq PO DAILY #15 tab.er.prt 07/23/17 [Rx] Allergies/Adverse Reactions: 3 Allergy/AdvReac Type Severity Reaction Status Date / Time SLOAN Inhibitors AdvReac Cough Verified 07/21/17 20:18 enalapril AdvReac Cough Verified 07/21/17 20:18 Date of admission: 07/21/17 23:37 Primary care physician: Nomi Valle MD Consults: 07/22/17 02:16 Consult to Occupational Therapy [CONS] Routine Comment: Evaluate, develop and implement POC Reason for Consult: decreased mobility Consult to Physical Therapy [CONS] Routine Comment: Evaluate, develop and implement POC Reason for Consult: decreased mobility - Patient Status Disposition: Home, Self-Care Condition: Good Overall status at discharge: patient is back to baseline - Discharge Instructions Instructions: Cellulitis (DC), Hypokalemia (DC), Chronic Hypertension (DC) Follow Up With: Nomi Valle MD [Primary Care Provider] - (web request 07/22/2017) - Diet and Activity Activity: increase activity as tolerated Diet: low salt diet Hospital course: Ms. Bowers is a 61 y/o F with known PMH of Morbid obesity, HTN, HLD, Chronic resp failure on 3 lit home o2 dependent, Hypoventilation syndrome, RAMO on BiPAP at bed time, DM2, Chronic superficial Left leg venous thrombosis presented to ER with abdominal pain, Left leg swelling, erythema and pain. Pt was admitted in the hospital and started her on empirical abx Rocephin. Her final report of [place] doppler came back no thrombosis both deep and superficial. So d/c anticoagulation and educated the pt. Also counseled to loose weight and encourage more physicla activity and ambulation. Also continued replacing her K+ . Pt did have hypokalemia mostly due to diuretics with Chlorthalidone and Lasix. So held diuretics here and recommend to continue Lasix only in 2 days. Also provided Rx for KCl for her. Pt does have mild erythema over Left leg distal ceballos area, as well as a small furucnle over Left buttock region, so continued empirical abx here, and d/c her home on Keflex for another 5 days course. She does have uncontrolled BS, so adjusted her Insulin NPH 70/30 to 80 u IN AM 70 U in AM. Provided a rx for BMP in 2 days and recommend to f/u with PCP for further orders. - Time Spent with Patient Total time spent providing and/or coordinating discharge services: - Constitutional Vitals: Temp Pulse Resp BP Pulse Ox 98.2 F 74 17 134/76 94 07/23/17 15:34 07/23/17 15:34 07/23/17 15:34 07/23/17 15:34 07/23/17 15:34 General appearance: Present: A&O X 3, no acute distress, answers questions appropriately - Head Head exam: Present: atraumatic, normal inspection - Respiratory Respiratory exam: Present: decreased breath sounds, wheezes (mild). Absent: rales, respiratory distress, rhonchi - Cardiovascular Cardiovascular exam: Present: RRR, +S1, +S2. Absent: systolic murmur - GI/Abdominal GI/Abdominal exam: Present: distended, soft. Absent: rebound, rigid, tenderness - Extremities Exam Extremities exam: Present: pedal edema (chronic trace pedal edema). Absent: calf tenderness, tenderness Additional comments: mild erythematous rash over distal part of Left leg ceballos area - Back Exam Back exam: Absent: CVA tenderness (L), CVA tenderness (R) - Neurological Exam Neurological exam: Present: alert, oriented X3 - Skin Additional comments: small furuncle over Left gluteal - perianal region, with no active discharge / drainage now
[2017-07-23] MEDS ORDERED: Insulin NPH/REG 70/30 100 UNIT/ML (x5UNIT) SQ SCH (18:00)
[2017-07-24] MEDS ORDERED: Insulin NPH/REG 70/30 100 UNIT/ML (x5UNIT) SQ SCH (07:30)
== END 2017-07-23 18:10 | disposition home or self-care (01) ==
LOC: EMEROO 20:17 → 2ANU 20:17 → SUATTDRO 07-22 02:12
PROVIDERS: ADMIT Family Medicine; ATTEND Family Medicine

== ENCOUNTER 2017-08-04 17:20 | Inpatient (IN) ==
--- NOTE | 2017-08-04 18:25 | Emergency Department Note ---
Disposition Clinical Impression: HCAP (healthcare-associated pneumonia), Chronic respiratory failure with hypoxia, on home O2 therapy Obesity Qualifiers: Obesity type: unspecified obesity type Obesity classification: unspecified obesity classification Serious obesity comorbidity presence: unspecified whether serious comorbidity present Qualified Code(s): E66.9 - Obesity, unspecified Disposition: Still a Patient Condition: Fair Forms: ED Satisfaction Letter Time of Disposition: 20:27 SOB HPI - General Chief Complaint: ED Shortness of Breath/Dyspnea Stated Complaint: STEPHAN,CP,Fever Time Seen by Provider: 08/04/17 17:40 Source: patient, family Mode of arrival: ambulatory Limitations: no limitations Nursing Notes Reviewed: Yes Vital Signs Reviewed: Yes - History of Present Illness 61-year-old female presents to the ED complaining of shortness of breath and a fever. Patient does have history of COPD as well as diabetes and is obese. Patient states this started about a month ago and the breathing is getting increasingly worse. They said the fever started today which is what caused him to come in. Said she is having a hard time breathing. She was seen here approximately 2 weeks ago and admitted to the hospital for hypokalemia, shortness of breath. Patient states this is the same pain she is having is when she was admitted prior. They did do a CTA of her chest which was negative. They also did a DVT studies of her legs which are negative. She did have a positive SVT but was not placed on anticoagulation. Patient states she is following a diabetic diet but is not limiting her salt intake. Patient does not have any cardiac history. Patient otherwise has no complaints including pain with urination, changes in bowel movements, headache, blurry vision, neck pain, back pain, pain or tingling going down the arms or legs, numbness. She is not having nausea or vomiting. Patient is complaining of some abdominal pain since her to the right upper quadrant. She was told by her primary care physician's needs to see a surgeon for an ultrasound to evaluate her. Patient has not set this up. - Related Data Home Medications Medication Instructions Recorded Confirmed Albuterol Sulfate [Proair 2 puff IH Q4H PRN 06/21/16 08/04/17 Respiclick] Aspirin [Lo-Dose Aspirin EC] 81 mg PO DAILY 06/21/16 08/04/17 Atorvastatin Calcium [Lipitor] 20 mg PO DAILY 06/21/16 08/04/17 Fluticasone/Salmeterol [Advair 1 each IH BID 06/21/16 08/04/17 250-50 Diskus] Glimepiride [Amaryl] 4 mg PO BID 06/21/16 08/04/17 Ipratropium/Albuterol Neb [Duoneb] 3 ml IH Q6HR PRN 06/21/16 08/04/17 Nitroglycerin 0.4 mg SL Q5-6MIN PRN 06/21/16 08/04/17 Pregabalin [Lyrica] 200 mg PO BID 06/21/16 08/04/17 Metformin HCl [Metformin HCl ER] 1,000 mg PO BID 02/12/17 08/04/17 Meloxicam [Mobic] 15 mg PO DAILY 07/22/17 08/04/17 Polyethylene Glycol 3350 [MiraLAX] 17 gm PO DAILY 07/22/17 08/04/17 Rizatriptan Benzoate [Maxalt Reading Intervention Teacher] 10 mg PO ONCE PRN 07/22/17 08/04/17 Topiramate [Topamax] 50 mg PO BID 07/22/17 08/04/17 Insulin NPH Hum/Reg Insulin Hm 65 unit SQ QPM 08/04/17 08/04/17 [Novolin 70-30 100 Unit/ml Vial] Insulin NPH Hum/Reg Insulin Hm 85 unit SQ QAM 08/04/17 08/04/17 [Novolin 70-30 100 Unit/ml Vial] Sulfamethoxazole/Trimeth DS 1 each PO BID 08/04/17 08/04/17 [Bactrim DS] Previous Rx's Medication Instructions Recorded Atenolol [Tenormin] 50 mg PO DAILY #30 tablet 07/23/17 Cephalexin [Keflex] 500 mg PO TID #15 capsule 07/23/17 Furosemide [Lasix] 20 mg PO DAILY #0 07/23/17 Potassium Chloride 20 meq PO DAILY #15 tab.er.prt 07/23/17 Allergies Allergy/AdvReac Type Severity Reaction Status Date / Time SLOAN Inhibitors AdvReac Cough Verified 08/04/17 19:33 enalapril AdvReac Cough Verified 08/04/17 19:33 Review of Systems: 10 point review of systems done and negative unless otherwise stated in history of present illness. All systems ED: reviewed and negative except as stated. Review of Systems: As Per HPI Past Medical History - Past Medical History Attestation: Yes The following information was validated with the patient. Medical history: Reports: asthma, cardiomyopathy, diabetes, hypertension, other Surgical history: Reports: other (Back surgery, surgery for necrotizing fasciitis of right groin) Psychiatric history: Reports: no psych history SERVICE DESK TECHNICIAN history: Reports: no SERVICE DESK TECHNICIAN history - Social History Smoking Status: Never smoker Smokeless Tobacco Status: No Alcohol use: Reports: none Drug use: Reports: none Physical Exam - General Limitations: no limitations General appearance: alert - Head Head exam: atraumatic, normocephalic, normal inspection - Eye Eye exam: Present: normal appearance, PERRL, EOMI - ENT ENT exam: normal exam, normal oropharynx, mucous membranes moist - Neck Neck exam: Present: normal inspection, full ROM, trachea midline - Chest Chest inspection: Present: normal inspection, symmetric chest wall rise - Respiratory Respiratory exam: Present: respiratory distress, wheezes, accessory muscle use, prolonged expiratory phase, other (Diminished breath sounds bilaterally in the bases.) - Cardiovascular Cardiovascular exam: Present: regular rate, normal rhythm, normal heart sounds - Abdominal Exam Abdominal exam: Present: soft, tenderness, normal bowel sounds, Gonzalez's sign. Absent: distention, guarding, rebound, rigidity Abdominal tenderness: Present: RUQ, mild - Extremities Exam Extremities exam: Present: normal inspection, full ROM, normal capillary refill , pedal edema (2+ pitting edema). Absent: tenderness, calf tenderness - Expanded Lower Extremity Exam Neurovascular/Tendon exam: Absent: motor deficit, sensory deficit, tendon deficit - Back Exam Back exam: Present: normal inspection, full ROM. Absent: tenderness, CVA tenderness (R), CVA tenderness (L) - Neurological Exam Neurological exam: Present: alert, oriented X3 - Psychiatric Psychiatric exam: Present: normal affect, normal mood - Skin Skin exam: Present: warm, dry, intact, normal color Course Course Narrative: 61-year-old female presents to the ED complaining of right upper quadrant abdominal pain, shortness of breath. Patient was hypoxic at 80% in the lobby. They placed her on nonrebreather and she went back up to 98%. She also had a fever of 101.4. Due to this patient did meet SIRS criteria so we did the sepsis alert. She is not currently in septic shock. We did get CBC, CMP, lipase, blood cultures, lactate with the time lactate, chest x-ray, EKG, right upper quadrant ultrasound. Did give patient Tylenol for the fever. Due to cardiomegaly and volume in the legs we will hold off on giving IV fluids until labs come back. - Reevaluation(s) Reevaluation #1: Gallbladder ultrasound came back showing no acute cholecystitis. Chest x-ray did come back showing a left lower lobe pneumonia. At this time due to her being recently admitted the hospital partially 2 weeks ago disconcerted hospital -acquired pneumonia. We will start her on Levaquin, Zosyn and vancomycin. Patient also has a history of necrotizing fasciitis so we will get a CT of her abdomen and pelvis and bilateral lower extremities she does have swelling in the legs. Patient is a care at this point. Contact the hospitalist to admit the patient to the hospitalist service. Time: 19:42 Vital Signs Temperature 102.2 F H 08/04/17 17:58 Pulse Rate 95 08/04/17 17:58 Respiratory Rate 24 08/04/17 17:58 Blood Pressure 125/66 08/04/17 17:58 O2 Sat by Pulse Oximetry 80 08/04/17 17:58 Temperature 100.7 F H 08/04/17 19:54 Pulse Rate 91 08/04/17 19:54 Respiratory Rate 20 08/04/17 19:54 Blood Pressure 135/67 08/04/17 19:54 O2 Sat by Pulse Oximetry 96 08/04/17 19:54 Oxygen Delivery Oxygen Delivery Aerosol Mask Shortness of Breath/Dyspnea - [facility] Narrative Medical decision making narrative: 61-year-old female presents to the ED complaining of shortness of breath. Patient did meet SIRS criteria she was to, tachycardic as well as had a fever of 101.4. At this time he said to start sepsis protocol by getting CBC, CMP, lactate, troponin, chest x-ray, EKG. Patient did have a leukocytosis but did not have any lactic acidosis. Chest x-ray did show a left lower lobe pneumonia. Because patient was recently hospitalized 2 weeks ago we did treat this as a hospital-acquired pneumonia treating her with Zosyn, Levaquin, vancomycin. Patient was given a liter of fluids as well as DuoNeb's. These did help out with her. We also did a ultrasound of her right upper quadrant as patient did have pain there and this came back showing no signs of gallbladder disease and only showed fatty liver but the common bile duct was not visualized this can be followed up in the outpatient setting. Upon admitting the patient and explaining this to her family they became worried that she has a history of necrotizing fasciitis of her groins. They said that they are hard again and she is having swelling but recently was not diagnosed with a DVT or pulmonary embolism at her last hospital visit. We felt it was necessary to order a CT of her abdomen, pelvis, bilateral lower extremities to be sure there is no signs of this. This exam is still pending so I am signing this patient out to the oncoming shift to follow-up on that. I re-spoke with the hospitalists, who agreed to admit the patient as long as the CTs come back negative for necrotizing fasciitis. Patient and family are okay with this plan. Chest X-Ray 08/04/17 17:40 IMPRESSION: 1. Cardiomegaly with vascular congestion. D/ / Aldo Adan MD / Aldo Adan MD Interpreting Provider: Aldo Adan MD Gallbladder Ultrasound 08/04/17 18:25 IMPRESSION: Fatty liver. Nonvisualization of the common duct. D/ / Francie Barr Cha, MD / Francie Barr Cha, MD Interpreting Provider: Francie Barr Cha, MD - Medical Records Medical records reviewed: Yes I reviewed the patient's medical records. - Lab Data Lab results reviewed: Yes I reviewed the patient's lab results. Result diagrams: 08/04/17 18:21 08/04/17 18:21 Lab Results 08/04/17 08/04/17 08/04/17 Range/Units 18:21 18:21 18:21 WBC (4.3-11.1) K/mcL RBC (3.82-4.97) M/mcL Hgb (11.5-15.4) g/dL Hct (35.3-44.9) % MCV (83.0-100.0) fL MCH (28.0-33.3) pg MCHC (31.6-35.5) g/dL RDW (11.5-14.5) % Plt Count (140-400) K/mcL MPV (9.4-12.4) fL Immature Gran % (0-4) % Seg Neutrophils % % Lymphocytes % % Monocytes % % Eosinophils % % Basophils % % Neutrophils # (1.6-8.9) K/mcL Lymphocytes # (0.6-4.6) K/mcL Monocytes # (0.0-1.3) K/mcL Eosinophils # (0.0-0.6) K/mcL Basophils # (0.0-0.2) K/mcL Nucleated RBCs/100 WBC (0) /100 WBC PT 13.6 H (9.4-12.1) Seconds INR 1.3 APTT 29.1 (26.0-36.0) Seconds Sodium 140 (136-145) mEq/L Potassium 3.9 (3.5-4.5) mEq/L Chloride 103 (98-109) mEq/L Carbon Dioxide 28 (19-29) mEq/L BUN 13 (7-20) mg/dL Creatinine 0.99 (0.57-1.11) mg/dL Est GFR ( Amer) > 60 (> 60) Est GFR (Non-Af Amer) 57 L (> 60) BUN/Creatinine Ratio 13 (6-26) Glucose 163 H (70-99) mg/dL Calculated Osmolality 294 (280-300) Lactic Acid 1.6 (0.5-2.2) mmol/L Calcium 9.3 (8.6-10.8) mg/dL Total Bilirubin 0.4 (0.2-1.2) mg/dL Direct Bilirubin 0.2 (0.0-0.5) mg/dL Indirect Bilirubin 0.2 (0.0-1.2) mg/dL AST 25 (5-34) Units/L ALT 26 (0-55) Units/L Alkaline Phosphatase 73 (38-126) Units/L Troponin I (0-0.03) ng/mL B-Natriuretic Peptide (0-100) pg/mL Serum Total Protein 7.3 (6.0-8.3) g/dL Albumin 3.0 L (3.5-5.0) g/dL Globulin 4.3 H (2.4-3.5) g/dL Albumin/Globulin Ratio 0.7 L (1.1-2.2) Lipase 13 (8-78) Units/L 08/04/17 08/04/17 08/04/17 Range/Units 18:21 18:21 18:21 WBC 14.7 H (4.3-11.1) K/mcL RBC 3.94 (3.82-4.97) M/mcL Hgb 11.8 (11.5-15.4) g/dL Hct 38.9 (35.3-44.9) % MCV 98.7 (83.0-100.0) fL MCH 29.9 (28.0-33.3) pg MCHC 30.3 L (31.6-35.5) g/dL RDW 15.8 H (11.5-14.5) % Plt Count 289 (140-400) K/mcL MPV 10.3 (9.4-12.4) fL Immature Gran % 0.6 (0-4) % Seg Neutrophils % 75.1 % Lymphocytes % 16.3 % Monocytes % 5.9 % Eosinophils % 1.6 % Basophils % 0.5 % Neutrophils # 11.0 H (1.6-8.9) K/mcL Lymphocytes # 2.4 (0.6-4.6) K/mcL Monocytes # 0.9 (0.0-1.3) K/mcL Eosinophils # 0.2 (0.0-0.6) K/mcL Basophils # 0.1 (0.0-0.2) K/mcL Nucleated RBCs/100 WBC 0.2 H (0) /100 WBC PT (9.4-12.1) Seconds INR APTT (26.0-36.0) Seconds Sodium (136-145) mEq/L Potassium (3.5-4.5) mEq/L Chloride (98-109) mEq/L Carbon Dioxide (19-29) mEq/L BUN (7-20) mg/dL Creatinine (0.57-1.11) mg/dL Est GFR ( Amer) (> 60) Est GFR (Non-Af Amer) (> 60) BUN/Creatinine Ratio (6-26) Glucose (70-99) mg/dL Calculated Osmolality (280-300) Lactic Acid (0.5-2.2) mmol/L Calcium (8.6-10.8) mg/dL Total Bilirubin (0.2-1.2) mg/dL Direct Bilirubin (0.0-0.5) mg/dL Indirect Bilirubin (0.0-1.2) mg/dL AST (5-34) Units/L ALT (0-55) Units/L Alkaline Phosphatase (38-126) Units/L Troponin I 0.00 (0-0.03) ng/mL B-Natriuretic Peptide 171 H (0-100) pg/mL Serum Total Protein (6.0-8.3) g/dL Albumin (3.5-5.0) g/dL Globulin (2.4-3.5) g/dL Albumin/Globulin Ratio (1.1-2.2) Lipase (8-78) Units/L - Radiology Data Radiology results reviewed: Yes I reviewed the patient's radiology results. - EKG Data EKG attestation: Yes I reviewed and interpreted this EKG. EKG results narrative: EKG done at 1800 myself and the attending shows normal sinus rhythm at a rate of 92, para 170, QRS 88, QTC 379 with a normal axis. There is no acute ST changes, no acute T wave of normality, no signs of an heart strain or heart block, hypertrophy, WPW/brugada syndrome. There is no old EKG at this time to compare with. Attestation Statement - Attestation Attestation: I examined this patient and my medical decision-making was reviewed with the Resident Physician. I agree with the documented findings, disposition and treatment plan as described except to the extent set forth below. 61-year-old female presents ED due to dyspnea and fever. She says have been evolving for the past couple days. She is actually shortness breath last couple of months but worse in the past 2 days. She did have recent hospitalization for abdominal pain, difficulty breathing, lower extremity swelling. At this time. Be is duplex studies revealed superficial venous thrombosis but no DVT. CTA of the chest was negative for acute process. Increasing dyspnea with cough and fever today. No focal pain over chest for but does have pain in the upper abdomen. Also complains of worsening pain and swelling of the left lower extremity. Morally obese female in mild respiratory distress. She is tachypneic. She is febrile. Oropharynx clear. Membranes are dry. Neck is supple. Chest with diffuse diminished breath sounds bilaterally. Coarse rhonchi heard in the left base. Scattered expiratory wheezes. Cardiac exam regular, chest wall nontender. Abdomen bowel sounds present throughout. Abdomen with diffuse tenderness mostly in the epigastrium and left upper quadrant. Extremities with bilateral edema more so on the left. Mild erythema and probable cellulitis on the medial aspect of the left thigh. No palpable crepitus. Distal perfusion is brisk. Chest x-ray reveals atelectasis and probable infiltrate in the left base and she started on broad-spectrum antibiotics covering for age. Gallbladder Ultrasound negative for cholecystitis. Family was concerned that she previously had necrotizing fasciitis that required surgical debridement at [facility] and the some of her symptoms are similar. We have done CT of the abdomen and lower extremity to rule out negative as she has. I do not appreciate any gas formation or any areas of a focal concern but formal reading is still pending. She will be admitted to the hospital on broad spectrum antibiotics, continued supple oxygen and bronchodilator treatments. The high probability of a clinically significant, sudden or life threatening deterioration of the [pulmonary] system(s) required my full and direct attention , intervention and personal management. The aggregate critical care time was [32 ] minutes. This time is in addition to time spent performing reported procedures but includes the following: [x] Data Review and interpretation [x] Patient assessment and monitoring of vital signs [x] Documentation [x] Medication orders and management
[2017-08-04 18:47] LABS: Basophils # 0.1 K/mcL (0.0-0.2); Basophils % 0.5 %; Eosinophils # 0.2 K/mcL (0.0-0.6); Eosinophils % 1.6 %; Hematocrit 38.9 % (35.3-44.9); Hemoglobin 11.8 g/dL (11.5-15.4); Immature Granulocytes % 0.6 % (0-4); Lymphocytes # 2.4 K/mcL (0.6-4.6); Lymphocytes % 16.3 %; Mean Corpuscular HGB Conc 30.3 g/dL (31.6-35.5); Mean Corpuscular Hemoglobin 29.9 pg (28.0-33.3); Mean Corpuscular Volume 98.7 fL (83.0-100.0); Mean Platelet Volume 10.3 fL (9.4-12.4); Monocytes # 0.9 K/mcL (0.0-1.3); Monocytes % 5.9 %; Nucleated Red Blood Cells 0.2 /100 WBC (0); Platelet Count 289 K/mcL (140-400); Red Blood Count 3.94 M/mcL (3.82-4.97); Red Cell Distribution Width 15.8 % (11.5-14.5); Segmented Neutrophils % 75.1 %
[2017-08-04 18:53] LABS: INR 1.3; Prothrombin Time 13.6 Seconds (9.4-12.1)
[2017-08-04 18:57] LABS: Activated Partial Thrombo Time 29.1 Seconds (26.0-36.0)
[2017-08-04 19:00] LABS: Alanine Aminotransferase 26 Units/L (0-55); Albumin/Globulin Ratio 0.7 (1.1-2.2); Alkaline Phosphatase 73 Units/L (38-126); Aspartate Amino Transferase 25 Units/L (5-34); BUN/Creatinine Ratio 13 (6-26); Bilirubin,Direct 0.2 mg/dL (0.0-0.5); Bilirubin,Indirect 0.2 mg/dL (0.0-1.2); Bilirubin,Total 0.4 mg/dL (0.2-1.2); Blood Urea Nitrogen 13 mg/dL (7-20); Calcium 9.3 mg/dL (8.6-10.8); Carbon Dioxide 28 mEq/L (19-29); Chloride 103 mEq/L (98-109); Globulin 4.3 g/dL (2.4-3.5); Glucose 163 mg/dL (70-99); Lipase 13 Units/L (8-78); Osmolality,Calculated 294 (280-300); Potassium 3.9 mEq/L (3.5-4.5); Sodium 140 mEq/L (136-145); Total Protein 7.3 g/dL (6.0-8.3); eGFR For African Americans > 60 (> 60); eGFR For Non-African Americans 57 (> 60)
[2017-08-04] MEDS ORDERED: Ipratropium/Albuterol Neb 3 ML IH ONE (19:06)
[2017-08-04] MEDS ORDERED: 0.9 % Sodium Chloride 500 ML IVC ONE (19:06)
[2017-08-04] MEDS ORDERED: Levofloxacin 750 MG/150 ML 750 MG/150 ML BAG IVPB ONE (19:16)
[2017-08-04] MEDS ORDERED: Piperacillin/Tazobactam 3.375 GM in 0.9 % Sodium Chloride Mini Bag 100 ML IVPB ONE (19:16)
[2017-08-04] MEDS ORDERED: Vancomycin 2,000 MG in D5% in Water 500 ML IVPB ONE (19:16)
[2017-08-04] MEDS ORDERED: Naloxone 0.4 MG/ML INJ IVP PRN (22:10)
[2017-08-04] MEDS ORDERED: (Rizatriptan Benzoate [Maxalt Mlt] 10 MG) PO PRN (22:12)
[2017-08-04] MEDS ORDERED: Pregabalin 50 MG CAPSULE PO PRN (22:12)
--- NOTE | 2017-08-04 22:35 | Internal Med History&Physical ---
<Harry Olivia - Last Filed: 08/04/17 23:28> Date of Encounter: 08/04/17 Time of Encounter: 22:28 Assessment and Plan (1) HCAP (healthcare-associated pneumonia) Current visit: Yes Status: Acute Patient was discharged from [facility] on 07/23/17 CXR, CT and physical exam correlate with HCAP, cardiomegaly and vascular congestion T 102.2, RR 24, WBC 14.7 - Sepsis protocol Supportive care Duoneb scheduled IV Zosyn, Vanc and Levaquin for coverage Supplemental oxygen Blood cultures pending Repeat CBC and BMP in the morning (2) Sepsis Current visit: No Status: Acute See above for management Qualifiers: Sepsis type: sepsis due to unspecified organism Qualified Code(s): A41.9 - Sepsis, unspecified organism (3) Chronic respiratory failure with hypoxia, on home O2 therapy Current visit: Yes Status: Acute O2 sat 80% on arrival. Uses 3L at home. Non-rebreather and duoneb treatment improved to 90s Continue 3L NC O2. Goal will be 88-92% O2 (4) Abdominal pain Current visit: Yes Status: Acute Epigastric that radiates to her RUQ and LLQ History of constipation - Takes Miralax and last known BM yesterday, usually has BM once per week Known Non-alcoholic fatty liver disease Abdominal CT and RUQ US showing no acute process Lipase, kidney function and LFTs normal Ordered UA Qualifiers: Abdominal location: epigastric Qualified Code(s): R10.13 - Epigastric pain (5) Chronic venous hypertension (idiopathic) with ulcer of left lower extremity Current visit: No Status: Chronic 1-2+ pitting edema on exam. Most recent ECHO on 02/12/17 shows EF 65% with only mild diastolic dysfunction No history of CAD, BNP mildly bumped to 171 Kidney function normal On Lasix 20mg PO daily. Increasing to 40m IV daily. (6) T2DM (type 2 diabetes mellitus) Current visit: Yes Status: Chronic Last known A1C was 11.0 on 06/23/17. Takes Metformin and Glimepiride with Insulin NPH 85 units in the AM and 65 units in the PM. Will start High dose sliding scale during her inpatient stay. Qualifiers: Diabetes mellitus complication status: with circulatory complication Diabetes mellitus complication detail: with other circulatory complications Diabetes mellitus half-way insulin use: with half-way use Qualified Code(s) : E11.59 - Type 2 diabetes mellitus with other circulatory complications; Z79.4 - senior care (current) use of insulin; Z79.4 - senior care (current) use of insulin ; Z79.4 - terminal operations supervisor (current) use of insulin; Z79.4 - senior care (current) use of insulin (7) HLD (hyperlipidemia) Current visit: No Status: Chronic Continued home statin therapy. Qualifiers: Hyperlipidemia type: unspecified Qualified Code(s): E78.5 - Hyperlipidemia , unspecified (8) Hypertension Current visit: No Status: Chronic BP appears to be stable at this time. Restarted home meds. Qualifiers: Hypertension type: essential hypertension Qualified Code(s): I10 - Essential (primary) hypertension (9) RAMO (obstructive sleep apnea) Current visit: No Status: Chronic Patient to use CPAP from home at night (10) Morbid obesity with BMI of 45.0-49.9, adult Current visit: Yes Status: Chronic (11) DVT prophylaxis Current visit: No Status: Acute SQ Heparin 5000 units q8hrs with history of Superficial VT Internal Medicine - H&P: HPI Chief complaint: shortness of breath Admitted From: Home Plans for Post Hospital Care: Home History of present illness: Ms. Bowers is a very pleasant 61 year old female with a past medical history of morbid obesity, HTN, HLD, chronic respiratory failure with 3L O2 at home, RAMO requiring CPAP, T2DM and superficial leg venous thrombosis who present to the [facility] Emergency Department with a chief complaint of shortness of breath. She reports the shortness of breath started 3-4 days ago and is worse during ambulation. Patient is able to ambulate minimally around the house to help with cooking and ADLs but otherwise, is overcome with dyspnea rather quickly and admits to orthopnea and PND that has present for quite some time. When questioned to compare her current complaints to similar events in the past, they are about equal in intensity. Additionally, she is experiencing worsening LE edema, abdominal pain, fever and chills during this time and has been unable to stay warm. She describes the abdominal pain as achy in nature, epigastric in origin radiating to her RUQ and LLQ. She has a history of constipation and takes miralax daily. Last known BM was yesterday and routinely has a BM once per week. Patient denies any chest pain, palpitations, STREET, hemoptysis. She ultimately decided to come to the ED when the shortness of breath progressively worsened. She was recently admitted here at [facility] and discharged on 07/23/17 due to hypokalemia, chronic respiratory failure and superficial left venous thrombosis workup. On arrival, her temperature 102.2, P 95, RR 24, O2 80%, WBC 14.7, kidney function normal and BNP 171. She was given tyelonol, non-rebreather, duoneb, zosyn, vanc and levaquin. Nasopharyngeal swab neg for influenza. Sat ignacio to 90s and continued on 3L NC. On evaluation, she denies any tobacco or EtOH use. She does not work outside the home as she hurt her back and left leg in 2001. EMR review shows most recent ECHO in 02/12/17 demonstrates EF 65%, mild diastolic dysfunction with otherwise benign exam. PFTs were performed on 02/24/17 shows moderate restrictive airway disease but had poor study due to decrease expiratory phase. She does not consume a high salt diet and admits to eating a "normal" diet. We will admit patient to for further workup and intervention. Past Med Surg Social Fam HX - Past Medical History Medical history: asthma, cardiomyopathy, diabetes, hypertension, other Psychiatric history: no psych history - Past Surgical History Surgical History: other (Back surgery, surgery for necrotizing fasciitis of right groin) - Social History Smoking Status: Never smoker Smokeless Tobacco Status: No Alcohol use: none Drug use: none - Family History Mother Living Status: Still Living Hx Family Cardiac Disorders: Yes (stents, pacemaker) Hx Family Respiratory Disorders: Yes Hx Family Cancer: Yes (uterine cancer) Hx Family GI Disorders: No Hx Family Endocrine Disorder: Yes (DM, thyroid) Hx Family Neuromuscular Disorders: No Hx Family Neurologic Disorders: No Hx Family HEENT Disorders: No Hx Family Autoimmune Disorders: No Father Living Status: Still Living Hx Family Cardiac Disorders: Yes (mi, pacemaker) Hx Family Respiratory Disorders: Yes (COPD) Hx Family Cancer: No Hx Family GI Disorders: Yes Hx Family Endocrine Disorder: Yes (DM) Hx Family Neuromuscular Disorders: No Hx Family Neurologic Disorders: Yes (CVA) Hx Family HEENT Disorders: No Hx Family Autoimmune Disorders: No Internal Medicine - H&P: Meds Albuterol Sulfate [Proair Respiclick] 2 puff IH Q4H PRN 06/21/16 [History] Aspirin [Lo-Dose Aspirin EC] 81 mg PO DAILY 06/21/16 [History] Atorvastatin Calcium [Lipitor] 20 mg PO DAILY 06/21/16 [History] Fluticasone/Salmeterol [Advair 250-50 Diskus] 1 each IH BID 06/21/16 [History] Glimepiride [Amaryl] 4 mg PO BID 06/21/16 [History] Ipratropium/Albuterol Neb [Duoneb] 3 ml IH Q6HR PRN 06/21/16 [History] Nitroglycerin 0.4 mg SL Q5-6MIN PRN 06/21/16 [History] Pregabalin [Lyrica] 200 mg PO BID 06/21/16 [History] Metformin HCl [Metformin HCl ER] 1,000 mg PO BID 02/12/17 [History] Meloxicam [Mobic] 15 mg PO DAILY 07/22/17 [History] Polyethylene Glycol 3350 [MiraLAX] 17 gm PO DAILY 07/22/17 [History] Rizatriptan Benzoate [Maxalt Electronic Operator] 10 mg PO ONCE PRN 07/22/17 [History] Topiramate [Topamax] 50 mg PO BID 07/22/17 [History] Atenolol [Tenormin] 50 mg PO DAILY #30 tablet 07/23/17 [Rx] Cephalexin [Keflex] 500 mg PO TID #15 capsule 07/23/17 [Rx] Furosemide [Lasix] 20 mg PO DAILY #0 07/23/17 [Rx] Potassium Chloride 20 meq PO DAILY #15 tab.er.prt 07/23/17 [Rx] Insulin NPH Hum/Reg Insulin Hm [Novolin 70-30 100 Unit/ml Vial] 65 unit SQ QPM 08/04/17 [History] Insulin NPH Hum/Reg Insulin Hm [Novolin 70-30 100 Unit/ml Vial] 85 unit SQ QAM 08/04/17 [History] Sulfamethoxazole/Trimeth DS [Bactrim DS] 1 each PO BID 08/04/17 [History] 3 Allergy/AdvReac Type Severity Reaction Status Date / Time SLOAN Inhibitors AdvReac Cough Verified 08/04/17 19:33 enalapril AdvReac Cough Verified 08/04/17 19:33 All Systems PM: A 10-system review of systems was performed and is negative for pertinent findings except as documented above in the HPI. - Constitutional Constitutional: fatigue, fever(s) - EENT Eyes: no change in vision - Cardiovascular Cardiovascular ROS IM: dyspnea, dyspnea on exertion, edema, orthopnea, paroxysmal nocturnal dyspnea, no chest pain, no diaphoresis, no palpitations - Respiratory Respiratory: as per HPI, dyspnea, dyspnea on exertion, no cough, no hemoptysis - Gastrointestinal Gastrointestinal: as per HPI - Genitourinary Genitourinary: no dysuria - Musculoskeletal Musculoskeletal ROS IM: back pain - Integumentary Integumentary IM: no new lesions - Neurological Neurological ROS: no headache(s) - Psychiatric Psychiatric: no behavioral changes - Constitutional Vitals: Temp Pulse Resp BP Pulse Ox 100.7 F H 91 20 135/67 96 08/04/17 19:54 08/04/17 19:54 08/04/17 19:54 08/04/17 19:54 08/04/17 19:54 General appearance: Present: cooperative, A&O X 3, morbidly obese, no acute distress - Head Head exam: Present: atraumatic, normocephalic - Eye Eye exam: Present: EOMI, conjuntiva pink, sclera anicteric - ENT ENT exam: Present: mucous membranes moist - Neck Neck exam general surgery: Present: supple, trachea midline - Respiratory Respiratory exam: Present: decreased breath sounds, rhonchi (bilateral bases, L> R). Absent: accessory muscle use, chest wall tenderness, respiratory distress - Cardiovascular Cardiovascular exam: Present: RRR, +S1, +S2 - GI/Abdominal GI/Abdominal exam: Present: normal bowel sounds, soft, tenderness (epigastric). Absent: distended, rebound - Rectal Rectal exam: Present: deferred - Extremities Exam Extremities exam: Present: normal capillary refill (with 2+ PT pulses), pedal edema (1+ bilateal). Absent: calf tenderness, cyanotic, tenderness Additional comments: chronic stasis dermatitis present on left, no TTP, foot drop on left LLE - Neurological Exam Neurological exam: Present: alert, oriented X3. Absent: speech deficit - Psychiatric Psychiatric exam: Present: normal affect, normal mood - Skin Skin exam: Present: erythema (LLE with stasis dermatitis) Internal Med - H&P Results - Labs CBC & Chem 7: 08/04/17 18:21 08/04/17 18:21 <Chon-Kamlesh Che - Last Filed: 08/05/17 01:37> Date of Encounter: 08/04/17 Internal Medicine - H&P: HPI History of present illness: Ms. Bowers is a 61 year old female All Systems PM: A 10-system review of systems was performed and is negative for pertinent findings except as documented above in the HPI. - Constitutional Vitals: Temp Pulse Resp BP Pulse Ox 99.2 F 82 18 112/46 96 08/04/17 22:50 08/04/17 22:44 08/04/17 22:44 08/04/17 22:44 08/04/17 19:54 Internal Med - H&P Results - Labs CBC & Chem 7: 08/04/17 18:21 08/04/17 18:21 - Attending Attestation I examined this patient and my medical decision-making was reviewed with the Resident Physician. I agree with the documented findings, disposition and treatment plan as described except to the extent set forth below. I have seen and examined the patient. Patient is a 61-year-old female with past medical history of asthma, RAMO, diabetes, hypertension, hyperlipidemia and chronic respiratory failure. Patient presents to the ED with complaints of shortness of breath and fever. Patient also complains of worsening bilateral lower leg edema. Initial chest x-ray shows cardiomegaly with vascular congestion. Patient was recently treated for pneumonia. Patient is being admitted for healthcare associated pneumonia and sepsis. She also has acute asthma exacerbation. Likely has acute cellulitis of both lower extremities. Patient will need IV antibiotics and DuoNeb breathing treatment. Cultures are pending. CT of the left lower extremity with contrast shows extensive subcutaneous edema, likely cellulitis. No other acute findings. Patient and family have been explained about her condition and plan of care in detail. They understood and agreed. No unanswered questions. CODE STATUS full code.
[2017-08-04] MEDS ORDERED: Vancomycin 2,000 MG in D5% in Water 250 ML IVPB SCH (23:00)
[2017-08-04] MEDS ORDERED: *HR* Dextrose 50 % in Water (Syg) 50 ML SYRINGE IVP PRN (23:03)
[2017-08-04] MEDS ORDERED: D5% in Water 1,000 ML IVC PRN (23:03)
[2017-08-04] MEDS ORDERED: Dextrose Gel 15 GM PO PRN ×2 (23:03)
[2017-08-04] MEDS: Furosemide 40 MG/4 ML VIAL IVP SCH (23:42)
[2017-08-04] MEDS: *HR* Heparin 5,000 UNIT/ML VIAL SQ SCH (23:42)
[2017-08-05] MEDS ORDERED: Vancomycin 1,250 MG in D5% in Water 250 ML IVPB SCH (02:00)
[2017-08-05] MEDS: Ipratropium/Albuterol Neb 3 ML IH SCH ×4 (04:33→21:39)
[2017-08-05] MEDS ORDERED: Piperacillin/Tazobactam 3.375 GM in 0.9 % Sodium Chloride Mini Bag 100 ML IVPB SCH (06:00)
[2017-08-05] MEDS: *HR* Heparin 5,000 UNIT/ML VIAL SQ SCH ×3 (06:19→20:29)
[2017-08-05] MEDS ORDERED: Insulin LISPRO 300 UNITS/3 ML VIAL SQ SCH (08:00)
[2017-08-05 08:27] LABS: Basophils # 0.1 K/mcL (0.0-0.2); Basophils % 0.4 %; Eosinophils # 0.2 K/mcL (0.0-0.6); Eosinophils % 1.7 %; Hematocrit 35.6 % (35.3-44.9); Immature Granulocytes % 0.5 % (0-4); Lymphocytes # 2.8 K/mcL (0.6-4.6); Lymphocytes % 20.8 %; Mean Corpuscular HGB Conc 30.9 g/dL (31.6-35.5); Mean Corpuscular Hemoglobin 30.2 pg (28.0-33.3); Mean Corpuscular Volume 97.8 fL (83.0-100.0); Mean Platelet Volume 10.8 fL (9.4-12.4); Monocytes % 7.7 %; Neutrophils # 9.2 K/mcL (1.6-8.9); Nucleated Red Blood Cells 0.1 /100 WBC (0); Platelet Count 260 K/mcL (140-400); Red Blood Count 3.64 M/mcL (3.82-4.97); Red Cell Distribution Width 15.9 % (11.5-14.5); Segmented Neutrophils % 68.9 %
[2017-08-05 08:38] LABS: BUN/Creatinine Ratio 11 (6-26); Blood Urea Nitrogen 11 mg/dL (7-20); Carbon Dioxide 29 mEq/L (19-29); Chloride 100 mEq/L (98-109); Glucose 193 mg/dL (70-99); Osmolality,Calculated 291 (280-300); Potassium 3.6 mEq/L (3.5-4.5); Sodium 138 mEq/L (136-145); eGFR For African Americans > 60 (> 60); eGFR For Non-African Americans 59 (> 60)
[2017-08-05] MEDS: Budesonide/Formoterol 80/4.5 MDI IH SCH ×2 (09:35→21:39)
[2017-08-05] MEDS ORDERED: Vancomycin 1,750 MG in D5% in Water 500 ML IVPB SCH (10:00)
[2017-08-05] MEDS: Furosemide 40 MG/4 ML VIAL IVP SCH (11:02)
[2017-08-05] MEDS: Insulin LISPRO 300 UNITS/3 ML VIAL SQ SCH ×3 (16:43→20:29)
[2017-08-05] MEDS: Topiramate 25 MG TABLET PO SCH ×2 (17:00→20:29)
[2017-08-05] MEDS: Aspirin Enteric Coated 81 MG Tablet PO SCH (17:00)
[2017-08-05] MEDS: Piperacillin/Tazobactam 3.375 GM/200 ML BAG IVPB SCH ×2 (17:01→22:18)
--- NOTE | 2017-08-05 18:00 | Internal Med Progress Note ---
Date of Encounter: 08/05/17 Time of Encounter: 17:58 - Assessment and plan (1) Sepsis Current Visit: Yes Status: Acute Assessment and plan: Presented with fever, tachycardia and leukocytosis with possible pneumonia. Continue IV antibiotics, follow up cultures. Remaining plan as below. Lactic acid noted to be within normal limits. Hemodynamically stable. Qualifiers: Sepsis type: sepsis due to unspecified organism Qualified Code(s): A41.9 - Sepsis, unspecified organism (2) HCAP (healthcare-associated pneumonia) Current Visit: Yes Status: Acute Assessment and plan: Recently discharged from hospital. Chest x-ray and CT imaging shows possible right lower lobe consolidation/atelectasis. Continue broad-spectrum IV antibiotics-IV Levaquin, Zosyn and vancomycin. Follow-up blood cultures. Sputum culture cannot be sent. Check urine Legionella and strep pneumoniae antigen. Continue supportive care and supplemental oxygen. (3) Acute on chronic respiratory failure with hypoxia Current Visit: Yes Status: Acute Assessment and plan: Patient has chronic respiratory failure with home oxygen at 3 L/m via nasal cannula due to underlying COPD and obstructive sleep apnea. Continue supplemental oxygen along with when necessary noninvasive positive pressure ventilation, wean down FiO2 as tolerated. (4) RAMO (obstructive sleep apnea) Current Visit: Yes Status: Chronic Assessment and plan: Continue home CPAP. (5) Diabetes Current Visit: Yes Status: Chronic Assessment and plan: Blood sugars noted to be elevated. Continue Accu-Chek blood glucose monitoring with basal bolus insulin regimen. Diabetic diet. Check hemoglobin A1c. Qualifiers: Diabetes mellitus type: type 2 Diabetes mellitus complication status: with hyperglycemia Diabetes mellitus alf insulin use: without terminal press operator use Qualified Code(s): E11.65 - Type 2 diabetes mellitus with hyperglycemia (6) Acute superficial venous thrombosis of left lower extremity Current Visit: Yes Status: Chronic Assessment and plan: Was diagnosed with superficial venous thrombosis of left leg during previous admission. (7) HLD (hyperlipidemia) Current Visit: Yes Status: Chronic Qualifiers: Hyperlipidemia type: unspecified Qualified Code(s): E78.5 - Hyperlipidemia , unspecified - Subjective Interval history: Reports weakness and chills; noted to be falling asleep mid-sentence, but able to answer appropriately; reports nausea and poor appetite; has not done well since her previous discharge; - Constitutional Vitals: Temp Pulse Resp BP Pulse Ox 100.6 F H 97 18 145/73 92 11/28/17 16:08 08/05/17 16:08 08/05/17 16:08 08/05/17 16:08 08/05/17 16:08 General appearance: Present: mild distress, A&O X 3, morbidly obese - Respiratory Respiratory exam: Present: decreased breath sounds, CTAB. Absent: accessory muscle use, rales, rhonchi, wheezes - Cardiovascular Cardiovascular exam: Present: RRR, +S1, +S2, tachycardia. Absent: diastolic murmur, gallop, rubs, systolic murmur - GI/Abdominal GI/Abdominal exam: Present: normal bowel sounds, soft (obese), no peritoneal signs. Absent: distended, tenderness - Extremities Exam Extremities exam: Present: full ROM (restricted in left leg and foot), warm, radial pulses palpable and symmetrical. Absent: calf tenderness, cyanotic, pedal edema - Neurological Exam Neurological exam: Present: CN II-XII intact, no focal deficits. Absent: pronater drift, facial droop, speech deficit Internal Medicine: Result - Labs CBC & Chem 7: 08/06/17 04:59 08/06/17 04:59 Labs: Short CBC 08/05/17 Range/Units 08:04 WBC 13.3 H (4.3-11.1) K/mcL Hgb 11.0 L (11.5-15.4) g/dL Hct 35.6 (35.3-44.9) % Plt Count 260 (140-400) K/mcL Neutrophils # 9.2 H (1.6-8.9) K/mcL BMP 08/05/17 08:04 Sodium 138 Potassium 3.6 Chloride 100 Carbon Dioxide 29 BUN 11 Creatinine 0.96 Glucose 193 H Calcium 9.0 - ABG Interpretation ABG results: PT/INR, D-dimer PT 13.6 Seconds (9.4-12.1) H 08/04/17 18:21 Consult Discharge Plan - Plan Referrals: Nomi Valle MD [Primary Care Provider] - (WEB REQUEST SENT ON 08/06/17)
[2017-08-05] MEDS: Pregabalin 50 MG CAPSULE PO SCH (20:28)
[2017-08-05] MEDS: Levofloxacin 750 MG/150 ML 750 MG/150 ML BAG IVPB SCH (20:28)
[2017-08-05] MEDS: Vancomycin 1,500 MG in D5% in Water 250 ML IVPB SCH (22:18)
[2017-08-05] MEDS ORDERED: Levofloxacin 750 MG/150 ML 750 MG/150 ML BAG IVPB SCH (22:19)
[2017-08-05] MEDS: Acetaminophen 325 MG TABLET PO PRN (22:23)
[2017-08-06] MEDS: Ipratropium/Albuterol Neb 3 ML IH SCH ×4 (03:37→23:24)
[2017-08-06] MEDS: Ondansetron 4 MG/2 ML VIAL IVP PRN (05:02)
[2017-08-06] MEDS: Piperacillin/Tazobactam 3.375 GM/200 ML BAG IVPB SCH ×3 (05:03→23:00)
[2017-08-06] MEDS: *HR* Heparin 5,000 UNIT/ML VIAL SQ SCH ×3 (05:03→21:33)
[2017-08-06 05:24] LABS: Basophils # 0.1 K/mcL (0.0-0.2); Basophils % 0.8 %; Eosinophils # 0.3 K/mcL (0.0-0.6); Eosinophils % 2.6 %; Hematocrit 34.5 % (35.3-44.9); Hemoglobin 10.7 g/dL (11.5-15.4); Immature Granulocytes % 0.9 % (0-4); Lymphocytes # 2.8 K/mcL (0.6-4.6); Lymphocytes % 26.2 %; Mean Corpuscular Hemoglobin 30.3 pg (28.0-33.3); Mean Corpuscular Volume 97.7 fL (83.0-100.0); Mean Platelet Volume 11.8 fL (9.4-12.4); Monocytes # 0.9 K/mcL (0.0-1.3); Monocytes % 8.8 %; Neutrophils # 6.4 K/mcL (1.6-8.9); Nucleated Red Blood Cells 0.2 /100 WBC (0); Platelet Count 202 K/mcL (140-400); Red Blood Count 3.53 M/mcL (3.82-4.97); Red Cell Distribution Width 15.9 % (11.5-14.5); Segmented Neutrophils % 60.7 %
[2017-08-06 05:40] LABS: BUN/Creatinine Ratio 10 (6-26); Blood Urea Nitrogen 9 mg/dL (7-20); Calcium 8.9 mg/dL (8.6-10.8); Carbon Dioxide 29 mEq/L (19-29); Chloride 100 mEq/L (98-109); Glucose 185 mg/dL (70-99); Osmolality,Calculated 291 (280-300); Potassium 3.7 mEq/L (3.5-4.5); Sodium 139 mEq/L (136-145); eGFR For African Americans > 60 (> 60); eGFR For Non-African Americans > 60 (> 60)
[2017-08-06] MEDS ORDERED: Ondansetron 4 MG/2 ML VIAL IVP SCH (06:00)
--- NOTE | 2017-08-06 09:40 | Internal Med Progress Note ---
Date of Encounter: 08/06/17 Time of Encounter: 09:37 - Assessment and plan (1) Acute and chronic respiratory failure ([id number]) Current Visit: Yes Status: Acute Assessment and plan: Patient was noted to be doing well this morning upon my evaluation. She gradually became more drowsy and lethargic, unable to answer questions. ABG was ordered and reviewed-pH 7.25, PCO2 69. CT chest showed bibasilar atelectasis versus pneumonia and patient has been on IV antibiotics. She likely has carbon dioxide narcosis due to obstructive sleep apnea/obesity hypoventilation syndrome. Low suspicion for pulmonary embolism. Bilateral lower extremity venous Doppler showed no evidence of superficial or deep venous thrombosis. CT head showed no acute infarct/bleed. Case was discussed with pulmonology, BiPAP settings were adjusted to AVAPS mode and paiet was noted to be improving; will transfer patient to stepdown unit for closer monitoring; Qualifiers: Respiratory failure complication: hypoxia and hypercapnia Qualified Code(s) : J96.21 - Acute and chronic respiratory failure with hypoxia; J96.22 - Acute and chronic respiratory failure with hypercapnia; J96.22 - Acute and chronic respiratory failure with hypercapnia; J96.22 - Acute and chronic respiratory failure with hypercapnia (2) Sepsis Current Visit: Yes Status: Acute Assessment and plan: Presented with fever, tachycardia and leukocytosis with possible pneumonia. Patient continues to have fever spikes. Continue IV antibiotics, follow up cultures. Lactic acid noted to be within normal limits. Hemodynamically stable. Qualifiers: Sepsis type: sepsis due to unspecified organism Qualified Code(s): A41.9 - Sepsis, unspecified organism (3) Abdominal pain Current Visit: Yes Status: Acute Assessment and plan: Abdominal examination revealed no evidence of cellulitis or panniculitis. CT abdomen reviewed, shows increased attenuation in subcutaneous fat in the lower abdomen, which is nonspecific. Could be having chronic panniculitis. Pain control and supportive care. Qualifiers: Abdominal location: periumbilical Qualified Code(s): R10.33 - Periumbilical pain (4) RAMO (obstructive sleep apnea) Current Visit: Yes Status: Chronic Assessment and plan: Continue BiPAP support as mentioned above. Patient requires overnight BiPAP qualification study prior to discharge, her CPAP needs to be changed BiPAP. (5) Diabetes Current Visit: Yes Status: Chronic Assessment and plan: Blood sugars noted to be elevated, in 200s. Continue Accu-Chek blood glucose monitoring with basal bolus insulin regimen. Qualifiers: Diabetes mellitus type: type 2 Diabetes mellitus complication status: with hyperglycemia Diabetes mellitus mcfp insulin use: without bed bug exterminator use Qualified Code(s): E11.65 - Type 2 diabetes mellitus with hyperglycemia (6) Acute superficial venous thrombosis of left lower extremity Current Visit: Yes Status: Resolved Assessment and plan: Recently diagnosed with superficial venous thrombosis of left lower extremity. Repeat lower extremity venous Doppler showed no evidence of superficial or deep venous thrombosis. (7) HLD (hyperlipidemia) Current Visit: Yes Status: Chronic Qualifiers: Hyperlipidemia type: unspecified Qualified Code(s): E78.5 - Hyperlipidemia , unspecified (8) Chronic respiratory failure with hypoxia, on home O2 therapy Current Visit: Yes Status: Chronic (9) HCAP (healthcare-associated pneumonia) Current Visit: Yes Status: Acute Assessment and plan: Recently discharged from hospital. Chest x-ray and CT imaging shows possible right lower lobe consolidation/atelectasis. Continue broad-spectrum IV antibiotics-IV Levaquin, Zosyn and vancomycin. Follow-up blood cultures. Sputum culture cannot be sent. Check urine Legionella and strep pneumoniae antigen. Continue supportive care and supplemental oxygen. (10) Nausea Current Visit: Yes Status: Acute Assessment and plan: Possibly related to viral gastritis or diabetic gastroparesis. Continue when necessary IV Zofran and Phenergan, supportive care. Diet as tolerated. - Subjective Interval history: Feels better but continues to report abdominal cramping pain and nausea and vomiting, Zofran does not help; improving shortness of breath, noted to have fever spikes upto 102.8 deg overnight, requiring high flow O2 at this time; - Constitutional Vitals: Temp Pulse Resp BP Pulse Ox 98.8 F 97 17 115/57 95 08/06/17 07:02 08/06/17 07:02 08/06/17 07:02 08/06/17 07:02 08/06/17 07:02 General appearance: Present: A&O X 3, morbidly obese, answers questions appropriately - Respiratory Respiratory exam: Present: decreased breath sounds, CTAB. Absent: accessory muscle use, rales, rhonchi, wheezes - Cardiovascular Cardiovascular exam: Present: RRR, +S1, +S2. Absent: diastolic murmur, gallop, rubs, systolic murmur - GI/Abdominal GI/Abdominal exam: Present: normal bowel sounds, soft (obese and tenderness in central abdom en), no peritoneal signs. Absent: distended, tenderness - Extremities Exam Extremities exam: Present: pedal edema, warm, radial pulses palpable and symmetrical. Absent: calf tenderness, cyanotic Additional comments: improved cellulitis in left leg - Neurological Exam Neurological exam: Present: CN II-XII intact, oriented X3, no focal deficits. Absent: pronater drift, facial droop, speech deficit Internal Medicine: Result - Labs CBC & Chem 7: 08/07/17 04:50 08/07/17 04:50 Labs: Short CBC 08/06/17 Range/Units 04:59 WBC 10.6 (4.3-11.1) K/mcL Hgb 10.7 L (11.5-15.4) g/dL Hct 34.5 L (35.3-44.9) % Plt Count 202 (140-400) K/mcL Neutrophils # 6.4 (1.6-8.9) K/mcL BMP 08/06/17 04:59 Sodium 139 Potassium 3.7 Chloride 100 Carbon Dioxide 29 BUN 9 Creatinine 0.88 Glucose 185 H Calcium 8.9 - ABG Interpretation ABG results: PT/INR, D-dimer PT 13.6 Seconds (9.4-12.1) H 08/04/17 18:21 Consult Discharge Plan - Plan Referrals: Nomi Valle MD [Primary Care Provider] - (WEB REQUEST SENT ON 08-07-17 @ 1537)
[2017-08-06] MEDS: Furosemide 40 MG/4 ML VIAL IVP SCH (09:48)
[2017-08-06] MEDS: *HR* Promethazine 25 MG/ML VIAL IVP PRN ×2 (09:48→20:33)
[2017-08-06] MEDS: Pregabalin 50 MG CAPSULE PO SCH (09:49)
[2017-08-06] MEDS: Topiramate 25 MG TABLET PO SCH ×3 (09:49→21:30)
[2017-08-06] MEDS: Aspirin Enteric Coated 81 MG Tablet PO SCH ×2 (09:49→18:08)
[2017-08-06] MEDS: Insulin LISPRO 300 UNITS/3 ML VIAL SQ SCH ×3 (09:49→18:34)
[2017-08-06] MEDS: Budesonide/Formoterol 80/4.5 MDI IH SCH ×2 (10:47→21:30)
[2017-08-06 10:52] LABS: ABG Base Excess 7 mEq/L (-2 to 3); ABG HCO3 36 mEq/L (21-27); ABG Oxygen Saturation 92 % (95-98); ABG PCO2 79 mmHg (35-45); ABG PH 7.27 pH Units (7.32-7.45); ABG PO2 78 mmHg (85-104); ABG TCO2 38 mEq/L (20-26)
[2017-08-06] MEDS: Vancomycin 1,500 MG in D5% in Water 250 ML IVPB SCH ×2 (11:46→23:00)
[2017-08-06 16:05] LABS: ABG Base Excess 10 mEq/L (-2 to 3); ABG HCO3 40 mEq/L (21-27); ABG Oxygen Saturation 88 % (95-98); ABG PCO2 82 mmHg (35-45); ABG PH 7.29 pH Units (7.32-7.45); ABG PO2 65 mmHg (85-104); ABG TCO2 42 mEq/L (20-26); Blood Gas Respiration Rate 8
--- NOTE | 2017-08-06 16:40 | Pulmonology Consult Note ---
Date of Encounter: 08/06/17 Time of Encounter: 16:00 Assessment and Plan (1) Acute and chronic respiratory failure ([id number]) Current Visit: Yes Status: Acute Patient decompensated acute on chronic hypoxic and hypercapnic respiratory failure complicated by heart failure and HCAP in the background of RAMO/OHS and COPD , patient is getting more alert on BIPAP will change to AVAPS and repeat a gas in 2hrs . If stable or getting better can go to 2N if it is getting worse with AMS patient will need ICU care with possible invasive ventilation as long as the PH getting compensated and her AMS is getting better please continue with BIPAP /AVAPS support . Will continue diuresing her .Ordered extra dose of Lasix 40 mg IV. Qualifiers: Respiratory failure complication: hypoxia and hypercapnia Qualified Code(s) : J96.21 - Acute and chronic respiratory failure with hypoxia; J96.22 - Acute and chronic respiratory failure with hypercapnia; J96.22 - Acute and chronic respiratory failure with hypercapnia; J96.22 - Acute and chronic respiratory failure with hypercapnia (2) HCAP (healthcare-associated pneumonia) Current Visit: Yes Status: Acute Agree with current regimen of antibiotics cultures pending . History of Present Illness Consult date: 08/06/17 Requesting physician: Khushbu Fang Reason for consult: pneumonia, other (altered mental status ) Chief complaint: Increasing shortness of breadth History of present illness: 61 year old female with past medical history significant for morbid obesity , COPD , RAMO/OHS , chronic hypoxic and hypercapnic respiratory failure comes to the hospital with slowly worsening shortness of breadth with some pedal edema concerning for heart failure started to get treat for that , Imaging showed possible bilateral basilar infiltrates since patient was recently discharged was started to get treating for HCAP , patient slowly developed altered mental status now with Acute on Chronic Hypoxic and hypercarbic respiratory failure was started on BIPAP pulmonary was consulted for further management .Patient was arousable AX 3 following commands says her breathing is lot better , denies any chest pain or tightness , denies any palpitations , had some cough with not much sputum production , had some fever during the hospital stay. Past Med Surg Social Fam HX - Past Medical History Medical history: asthma, cardiomyopathy, diabetes, hypertension, other Psychiatric history: no psych history - Past Surgical History Surgical History: other - Social History Smoking Status: Never smoker Smokeless Tobacco Status: No Alcohol use: none Drug use: none - Family History Mother Living Status: Still Living Hx Family Cardiac Disorders: Yes (Stents, Heart Attack, Pacer) Hx Family Respiratory Disorders: No (COPD) Hx Family Cancer: Yes (Endometrial Cancer) Hx Family GI Disorders: Yes (GERD) Hx Family Genitourinary Disorders: No Hx Family Endocrine Disorder: No Hx Family Musculoskeletal Disorders: No Hx Family Neuromuscular Disorders: No Hx Family Neurologic Disorders: No Hx Family HEENT Disorders: No Hx Family Autoimmune Disorders: No Hx Family Reproductive Disorders: No Hx Family Psychosocial Disorders: No Hx Family Medical Disorders: No Father Living Status: Still Living Hx Family Cardiac Disorders: Yes (CHF, Heart Attack, HTN) Hx Family Respiratory Disorders: Yes (COPD, Asthma, Emphasema) Hx Family Cancer: No Hx Family GI Disorders: No Hx Family Genitourinary Disorders: No Hx Family Endocrine Disorder: Yes (DM) Hx Family Musculoskeletal Disorders: No Hx Family Neuromuscular Disorders: No Hx Family Neurologic Disorders: No Hx Family HEENT Disorders: No Hx Family Autoimmune Disorders: No Hx Family Reproductive Disorders: No Hx Family Psychosocial Disorders: No Hx Family Medical Disorders: No Medications and Allergies Albuterol Sulfate [Proair Respiclick] 2 puff IH Q4H PRN 06/21/16 [History] Aspirin [Lo-Dose Aspirin EC] 81 mg PO DAILY 06/21/16 [History] Atorvastatin Calcium [Lipitor] 20 mg PO DAILY 06/21/16 [History] Fluticasone/Salmeterol [Advair 250-50 Diskus] 1 each IH BID 06/21/16 [History] Glimepiride [Amaryl] 4 mg PO BID 06/21/16 [History] Ipratropium/Albuterol Neb [Duoneb] 3 ml IH Q6HR PRN 06/21/16 [History] Nitroglycerin 0.4 mg SL Q5-6MIN PRN 06/21/16 [History] Pregabalin [Lyrica] 200 mg PO BID 06/21/16 [History] Metformin HCl [Metformin HCl ER] 1,000 mg PO BID 02/12/17 [History] Meloxicam [Mobic] 15 mg PO DAILY 07/22/17 [History] Polyethylene Glycol 3350 [MiraLAX] 17 gm PO DAILY 07/22/17 [History] Rizatriptan Benzoate [Maxalt Airplane Tester] 10 mg PO ONCE PRN 07/22/17 [History] Topiramate [Topamax] 50 mg PO BID 07/22/17 [History] Atenolol [Tenormin] 50 mg PO DAILY #30 tablet 07/23/17 [Rx] Cephalexin [Keflex] 500 mg PO TID #15 capsule 07/23/17 [Rx] Furosemide [Lasix] 20 mg PO DAILY #0 07/23/17 [Rx] Potassium Chloride 20 meq PO DAILY #15 tab.er.prt 07/23/17 [Rx] Insulin NPH Hum/Reg Insulin Hm [Novolin 70-30 100 Unit/ml Vial] 65 unit SQ QPM 08/04/17 [History] Insulin NPH Hum/Reg Insulin Hm [Novolin 70-30 100 Unit/ml Vial] 85 unit SQ QAM 08/04/17 [History] Sulfamethoxazole/Trimeth DS [Bactrim DS] 1 each PO BID 08/04/17 [History] 3 Allergy/AdvReac Type Severity Reaction Status Date / Time SLOAN Inhibitors AdvReac Cough Verified 08/04/17 19:33 enalapril AdvReac Cough Verified 08/04/17 19:33 All Systems: A 10-system review of systems was performed and is negative for pertinent findings except as documented above in the HPI. Physical Examination Vital Signs: Vital Signs, Last 4 Hours Temp Pulse Resp BP Pulse Ox 08/06/17 16:37 100.6 F H 120 18 157/74 99 08/06/17 16:31 21 96 Effort: mildly labored Auscultation: bilateral: diminished breath sounds Results - Laboratory Findings CBC and BMP: 08/06/17 04:59 08/06/17 04:59 ABG ABG pH 7.29 pH Units (7.32-7.45) L 08/06/17 15:56 ABG pCO2 82 mmHg (35-45) H* 08/06/17 15:56 ABG pO2 65 mmHg (85-104) L 08/06/17 15:56 ABG O2 Saturation 88 % (95-98) L 08/06/17 15:56 PT/INR, D-dimer PT 13.6 Seconds (9.4-12.1) H 08/04/17 18:21 Abnormal lab findings: Abnormal lab results RBC 3.53 M/mcL (3.82-4.97) L 08/06/17 04:59 Hgb 10.7 g/dL (11.5-15.4) L 08/06/17 04:59 Hct 34.5 % (35.3-44.9) L 08/06/17 04:59 MCHC 31.0 g/dL (31.6-35.5) L 08/06/17 04:59 RDW 15.9 % (11.5-14.5) H 08/06/17 04:59 Nucleated RBCs/100 WBC 0.2 /100 WBC (0) H 08/06/17 04:59 PT 13.6 Seconds (9.4-12.1) H 08/04/17 18:21 ABG pH 7.29 pH Units (7.32-7.45) L 08/06/17 15:56 ABG pCO2 82 mmHg (35-45) H* 08/06/17 15:56 ABG pO2 65 mmHg (85-104) L 08/06/17 15:56 ABG HCO3 40 mEq/L (21-27) H 08/06/17 15:56 ABG Total CO2 42 mEq/L (20-26) H 08/06/17 15:56 ABG O2 Saturation 88 % (95-98) L 08/06/17 15:56 ABG Base Excess 10 mEq/L (-2 to 3) H 08/06/17 15:56 Glucose 185 mg/dL (70-99) H 08/06/17 04:59 POC Glucose 199 (58-89) H 08/06/17 10:05 B-Natriuretic Peptide 171 pg/mL (0-100) H 08/04/17 18:21 Albumin 3.0 g/dL (3.5-5.0) L 08/04/17 18:21 Globulin 4.3 g/dL (2.4-3.5) H 08/04/17 18:21 Albumin/Globulin Ratio 0.7 (1.1-2.2) L 08/04/17 18:21 - Clinical Findings Intake & Output: Intake & Output 08/06/17 08/06/17 08/06/17 07:59 15:59 23:59 Intake Total 450 / 450 200 / 200 Balance 450 / 450 200 / 200 Weight 160.2 kg Consult Discharge Plan - Plan Referrals: Nomi Valle MD [Primary Care Provider] - (WEB REQUEST SENT ON 08/06/17)
[2017-08-06] MEDS ORDERED: Furosemide 40 MG/4 ML VIAL IVP ONE (16:41)
[2017-08-06 18:44] LABS: Bilirubin,Urine Negative (Negative); Blood,Urine Negative (Negative); Clarity,Urine Clear (Clear); Color,Urine Yellow (Yellow); Glucose,Urine (UA) Normal (Normal); Ketones,Urine Negative (Negative); Leukocyte Esterase,Urine Negative (Negative); Nitrite,Urine Negative (Negative); Protein,Urine Negative (Neg-Trace); Urobilinogen,Urine Normal (Normal)
[2017-08-06] MEDS: Acetaminophen 325 MG TABLET PO PRN (21:30)
[2017-08-06] MEDS: Levofloxacin 750 MG/150 ML 750 MG/150 ML BAG IVPB SCH (21:33)
[2017-08-07] MEDS: Ipratropium/Albuterol Neb 3 ML IH SCH ×4 (04:14→22:14)
[2017-08-07 05:12] LABS: Basophils # 0.1 K/mcL (0.0-0.2); Basophils % 0.7 %; Eosinophils # 0.3 K/mcL (0.0-0.6); Eosinophils % 3.5 %; Hematocrit 35.6 % (35.3-44.9); Hemoglobin 10.7 g/dL (11.5-15.4); Immature Granulocytes % 0.5 % (0-4); Lymphocytes # 2.5 K/mcL (0.6-4.6); Lymphocytes % 26.4 %; Mean Corpuscular HGB Conc 30.1 g/dL (31.6-35.5); Mean Corpuscular Volume 99.7 fL (83.0-100.0); Monocytes # 0.7 K/mcL (0.0-1.3); Monocytes % 7.7 %; Neutrophils # 5.7 K/mcL (1.6-8.9); Platelet Count 218 K/mcL (140-400); Red Blood Count 3.57 M/mcL (3.82-4.97); Red Cell Distribution Width 15.4 % (11.5-14.5); Segmented Neutrophils % 61.2 %
[2017-08-07 05:23] LABS: BUN/Creatinine Ratio 10 (6-26); Blood Urea Nitrogen 8 mg/dL (7-20); Calcium 9.1 mg/dL (8.6-10.8); Carbon Dioxide 36 mEq/L (19-29); Chloride 97 mEq/L (98-109); Glucose 174 mg/dL (70-99); Magnesium 1.7 mg/dL (1.6-2.6); Osmolality,Calculated 293 (280-300); Potassium 3.2 mEq/L (3.5-4.5); Sodium 140 mEq/L (136-145); eGFR For African Americans > 60 (> 60); eGFR For Non-African Americans > 60 (> 60)
[2017-08-07] MEDS: Insulin LISPRO 300 UNITS/3 ML VIAL SQ SCH ×5 (05:38→21:14)
[2017-08-07] MEDS: *HR* Heparin 5,000 UNIT/ML VIAL SQ SCH ×3 (06:05→20:05)
[2017-08-07] MEDS: Piperacillin/Tazobactam 3.375 GM/200 ML BAG IVPB SCH ×3 (07:35→22:55)
[2017-08-07] MEDS: Ondansetron 4 MG/2 ML VIAL IVP PRN (08:04)
[2017-08-07] MEDS: Aspirin Enteric Coated 81 MG Tablet PO SCH (09:51)
[2017-08-07] MEDS: Vancomycin 1,500 MG in D5% in Water 250 ML IVPB SCH ×2 (09:51→21:37)
[2017-08-07] MEDS: Topiramate 25 MG TABLET PO SCH ×2 (09:51→20:04)
[2017-08-07] MEDS: Furosemide 40 MG/4 ML VIAL IVP SCH (09:52)
[2017-08-07] MEDS: Budesonide/Formoterol 80/4.5 MDI IH SCH ×2 (10:40→22:14)
[2017-08-07] MEDS ORDERED: Potassium Chloride Elixir 20 MEQ/15 ML UDC PO ONE (10:41)
--- NOTE | 2017-08-07 11:12 | Internal Med Progress Note ---
Date of Encounter: 08/07/17 Time of Encounter: 11:10 - Assessment and plan (1) Acute and chronic respiratory failure ([id number]) Current Visit: Yes Status: Acute Assessment and plan: Significantly improved mental status and respiratory status today. Pulmonology consult appreciated. Continue supplemental oxygen and when necessary noninvasive positive pressure ventilation with BiPAP in AVAPS mode. Patient noted to be improving on ABG. Continue IV Lasix. Check echocardiogram. Qualifiers: Respiratory failure complication: hypoxia and hypercapnia Qualified Code(s) : J96.21 - Acute and chronic respiratory failure with hypoxia; J96.22 - Acute and chronic respiratory failure with hypercapnia; J96.22 - Acute and chronic respiratory failure with hypercapnia; J96.22 - Acute and chronic respiratory failure with hypercapnia (2) Sepsis Current Visit: Yes Status: Acute Assessment and plan: Presented with fever, tachycardia and leukocytosis with possible pneumonia. Patient continued to have fever spikes until last evening. Continue IV antibiotics, preliminary blood cultures remain negative. Lactic acid noted to be within normal limits. Hemodynamically stable. Qualifiers: Sepsis type: sepsis due to unspecified organism Qualified Code(s): A41.9 - Sepsis, unspecified organism (3) HCAP (healthcare-associated pneumonia) Current Visit: Yes Status: Acute Assessment and plan: Recently discharged from hospital. Chest x-ray and CT imaging shows possible right lower lobe consolidation/atelectasis. Continue broad-spectrum IV antibiotics-IV Levaquin, Zosyn and vancomycin. Preliminary blood cultures negative, will continue current antibiotics due to continued fever spikes. Sputum culture cannot be sent. Influenza A and B antigen negative. Continue supportive care and supplemental oxygen. (4) RAMO (obstructive sleep apnea) Current Visit: Yes Status: Chronic Assessment and plan: Continue BiPAP support as mentioned above. Patient requires overnight BiPAP qualification study prior to discharge, her CPAP needs to be changed BiPAP. (5) Diabetes Current Visit: Yes Status: Chronic Assessment and plan: Blood sugars noted to be elevated, in 200s. Continue Accu-Chek blood glucose monitoring, start Levemir and continue sliding scale insulin. Diabetic diet. Qualifiers: Diabetes mellitus type: type 2 Diabetes mellitus complication status: with hyperglycemia Diabetes mellitus intermediate accountant insulin use: without intermediate accountant use Qualified Code(s): E11.65 - Type 2 diabetes mellitus with hyperglycemia (6) Acute superficial venous thrombosis of left lower extremity Current Visit: Yes Status: Resolved (7) HLD (hyperlipidemia) Current Visit: Yes Status: Chronic Qualifiers: Hyperlipidemia type: unspecified Qualified Code(s): E78.5 - Hyperlipidemia , unspecified (8) Nausea Current Visit: Yes Status: Acute Assessment and plan: Possibly related to viral gastritis or diabetic gastroparesis. Continue when necessary IV Zofran and Phenergan, supportive care. Diet as tolerated. - Subjective Interval history: Doing better today, improved breathing and SOB, more alert and oriented today, sitting at the edge of bed; but continues to have nausea and dry heaves; ate small amount of breakfast this morning; no chest pain, headache; abdominal pain controlled; - Constitutional Vitals: Temp Pulse Resp BP Pulse Ox 98.4 F 90 14 106/58 91 08/07/17 08:16 08/07/17 08:16 08/07/17 08:16 08/07/17 08:16 08/07/17 08:16 General appearance: Present: mild distress (due to nausea), A&O X 3, morbidly obese, answers questions appropriately - Respiratory Respiratory exam: Present: CTAB (coarse breath sounds B/L). Absent: accessory muscle use, rales, rhonchi, wheezes - Cardiovascular Cardiovascular exam: Present: RRR, +S1, +S2. Absent: diastolic murmur, gallop, rubs, systolic murmur - GI/Abdominal GI/Abdominal exam: Present: normal bowel sounds, soft (obese), no peritoneal signs. Absent: distended, tenderness - Extremities Exam Extremities exam: Present: pedal edema, warm, radial pulses palpable and symmetrical. Absent: calf tenderness, cyanotic Internal Medicine: Result - Labs CBC & Chem 7: 08/07/17 04:50 08/07/17 04:50 Labs: Short CBC 08/07/17 Range/Units 04:50 WBC 9.4 (4.3-11.1) K/mcL Hgb 10.7 L (11.5-15.4) g/dL Hct 35.6 (35.3-44.9) % Plt Count 218 (140-400) K/mcL Neutrophils # 5.7 (1.6-8.9) K/mcL BMP 08/07/17 04:50 Sodium 140 Potassium 3.2 L Chloride 97 L Carbon Dioxide 36 H BUN 8 Creatinine 0.80 Glucose 174 H Calcium 9.1 Urine 08/06/17 Range/Units 18:30 Urine Color Yellow (Yellow) Urine Clarity Clear (Clear) Urine pH 6.0 (5.0-8.0) pH Units Ur Specific [place] 1.020 (1.010-1.025) Urine Protein Negative (Neg-Trace) mg/dL Urine Glucose (UA) Normal (Normal) mg/dL - ABG Interpretation ABG results: ABG ABG pH 7.29 pH Units (7.32-7.45) L 08/06/17 15:56 ABG pCO2 82 mmHg (35-45) H* 08/06/17 15:56 ABG pO2 65 mmHg (85-104) L 08/06/17 15:56 ABG O2 Saturation 88 % (95-98) L 08/06/17 15:56 PT/INR, D-dimer PT 13.6 Seconds (9.4-12.1) H 08/04/17 18:21 - Impressions Impressions Head CT 08/06/17 12:03 IMPRESSION: 1. No acute intracranial abnormality. D/ / Aldo Adan MD / Aldo Adan MD Interpreting Provider: Aldo Adan MD Consult Discharge Plan - Plan Referrals: Nomi Valle MD [Primary Care Provider] - (WEB REQUEST SENT ON 08-07-17 @ [id number])
--- NOTE | 2017-08-07 12:06 | Pulmonology Progress Note ---
Date of Encounter: 08/07/17 Time of Encounter: 12:00 Assessment and Plan (1) Acute and chronic respiratory failure ([id number]) Current Visit: Yes Status: Acute Secondary to COPD exacerbation complicated by possible suspected gram negative and positive pneumonia , RAMO/OHS counseled the importance of BIPAP uses when she sleeps , patient verbalized understanding . To continue BIPAP whenever she sleeps . Qualifiers: Respiratory failure complication: hypoxia and hypercapnia Qualified Code(s) : J96.21 - Acute and chronic respiratory failure with hypoxia; J96.22 - Acute and chronic respiratory failure with hypercapnia; J96.22 - Acute and chronic respiratory failure with hypercapnia; J96.22 - Acute and chronic respiratory failure with hypercapnia (2) HCAP (healthcare-associated pneumonia) Current Visit: Yes Status: Acute To continue the current regimen of antibiotics , will do induced sputum culture so far blood cultures are negative , repeat blood cultures if she spikes to repeat cultures Subjective Principal diagnosis: Acute on Chronic hypercapnic respiratory failure Interval history: Patient is completely different sitting was eating fully alert and oriented says she is doing well , denies any shortness of breadth , cough and sputum production is minimal Objective PUL Vital signs: Last Vital Signs Temp 100.5 F H 08/07/17 11:43 Pulse 84 08/07/17 11:43 Resp 12 08/07/17 11:43 BP 138/84 08/07/17 11:43 Pulse Ox 89 08/07/17 11:43 Auscultation: bilateral: diminished breath sounds Results - Laboratory Findings CBC and BMP: 08/07/17 04:50 08/07/17 04:50 ABG ABG pH 7.29 pH Units (7.32-7.45) L 08/06/17 15:56 ABG pCO2 82 mmHg (35-45) H* 08/06/17 15:56 ABG pO2 65 mmHg (85-104) L 08/06/17 15:56 ABG O2 Saturation 88 % (95-98) L 08/06/17 15:56 PT/INR, D-dimer PT 13.6 Seconds (9.4-12.1) H 08/04/17 18:21 Abnormal lab findings: Abnormal lab results RBC 3.57 M/mcL (3.82-4.97) L 08/07/17 04:50 Hgb 10.7 g/dL (11.5-15.4) L 08/07/17 04:50 MCHC 30.1 g/dL (31.6-35.5) L 08/07/17 04:50 RDW 15.4 % (11.5-14.5) H 08/07/17 04:50 Nucleated RBCs/100 WBC 0.2 /100 WBC (0) H 08/06/17 04:59 PT 13.6 Seconds (9.4-12.1) H 08/04/17 18:21 ABG pH 7.29 pH Units (7.32-7.45) L 08/06/17 15:56 ABG pCO2 82 mmHg (35-45) H* 08/06/17 15:56 ABG pO2 65 mmHg (85-104) L 08/06/17 15:56 ABG HCO3 40 mEq/L (21-27) H 08/06/17 15:56 ABG Total CO2 42 mEq/L (20-26) H 08/06/17 15:56 ABG O2 Saturation 88 % (95-98) L 08/06/17 15:56 ABG Base Excess 10 mEq/L (-2 to 3) H 08/06/17 15:56 Potassium 3.2 mEq/L (3.5-4.5) L 08/07/17 04:50 Chloride 97 mEq/L (98-109) L 08/07/17 04:50 Carbon Dioxide 36 mEq/L (19-29) H 08/07/17 04:50 Glucose 174 mg/dL (70-99) H 08/07/17 04:50 POC Glucose 176 (58-89) H 08/07/17 07:59 B-Natriuretic Peptide 171 pg/mL (0-100) H 08/04/17 18:21 Albumin 3.0 g/dL (3.5-5.0) L 08/04/17 18:21 Globulin 4.3 g/dL (2.4-3.5) H 08/04/17 18:21 Albumin/Globulin Ratio 0.7 (1.1-2.2) L 08/04/17 18:21 - Clinical Findings Intake & Output: Intake & Output 08/06/17 08/07/17 08/07/17 23:59 07:59 15:59 Intake Total 450 / 450 450 / 450 480 / 480 Output Total 0 / 0 251 / 251 Balance 450 / 450 450 / 450 229 / 229 Weight 155.8 kg Consult Discharge Plan - Plan Referrals: Nomi Valle MD [Primary Care Provider] - (WEB REQUEST SENT ON 08-07-17 @ [id number])
[2017-08-07] MEDS: Acetaminophen 325 MG TABLET PO PRN (15:46)
[2017-08-07] MEDS: Levofloxacin 750 MG/150 ML 750 MG/150 ML BAG IVPB SCH (20:04)
[2017-08-07] MEDS: Insulin DETEMIR 100 UNIT/ML X5UNITS SQ SCH (21:13)
[2017-08-08] MEDS: Acetaminophen 325 MG TABLET PO PRN (04:02)
[2017-08-08] MEDS: Ipratropium/Albuterol Neb 3 ML IH SCH ×4 (04:09→22:13)
[2017-08-08 04:13] LABS: Basophils # 0.1 K/mcL (0.0-0.2); Basophils % 0.6 %; Eosinophils # 0.4 K/mcL (0.0-0.6); Eosinophils % 3.9 %; Hematocrit 34.7 % (35.3-44.9); Hemoglobin 10.5 g/dL (11.5-15.4); Immature Granulocytes % 0.6 % (0-4); Lymphocytes # 1.8 K/mcL (0.6-4.6); Mean Corpuscular HGB Conc 30.3 g/dL (31.6-35.5); Mean Corpuscular Hemoglobin 29.4 pg (28.0-33.3); Mean Corpuscular Volume 97.2 fL (83.0-100.0); Mean Platelet Volume 10.2 fL (9.4-12.4); Monocytes # 0.7 K/mcL (0.0-1.3); Monocytes % 6.3 %; Neutrophils # 7.7 K/mcL (1.6-8.9); Platelet Count 219 K/mcL (140-400); Red Blood Count 3.57 M/mcL (3.82-4.97); Red Cell Distribution Width 15.4 % (11.5-14.5); Segmented Neutrophils % 71.6 %
[2017-08-08 04:25] LABS: BUN/Creatinine Ratio 11 (6-26); Blood Urea Nitrogen 9 mg/dL (7-20); Carbon Dioxide 32 mEq/L (19-29); Chloride 97 mEq/L (98-109); Glucose 196 mg/dL (70-99); Magnesium 1.7 mg/dL (1.6-2.6); Osmolality,Calculated 290 (280-300); Potassium 3.3 mEq/L (3.5-4.5); Sodium 138 mEq/L (136-145); eGFR For African Americans > 60 (> 60); eGFR For Non-African Americans > 60 (> 60)
[2017-08-08] MEDS: *HR* Heparin 5,000 UNIT/ML VIAL SQ SCH ×3 (06:25→21:18)
[2017-08-08] MEDS: Piperacillin/Tazobactam 3.375 GM/200 ML BAG IVPB SCH ×3 (06:26→22:53)
[2017-08-08] MEDS ORDERED: Potassium Chloride Elixir 20 MEQ/15 ML UDC PO ONE (07:46)
[2017-08-08] MEDS ORDERED: Aminoglycoside Consult 1 EACH MC ONE (08:54)
[2017-08-08] MEDS: Topiramate 25 MG TABLET PO SCH ×2 (09:13→21:19)
[2017-08-08] MEDS: Aspirin Enteric Coated 81 MG Tablet PO SCH (09:13)
[2017-08-08] MEDS: Insulin LISPRO 300 UNITS/3 ML VIAL SQ SCH ×4 (09:13→20:55)
[2017-08-08] MEDS: *HR* Promethazine 25 MG/ML VIAL IVP PRN (09:14)
[2017-08-08] MEDS: Furosemide 40 MG/4 ML VIAL IVP SCH (09:14)
[2017-08-08] MEDS: Insulin DETEMIR 100 UNIT/ML X5UNITS SQ SCH (09:14)
--- NOTE | 2017-08-08 09:32 | Internal Med Progress Note ---
Date of Encounter: 08/08/17 Time of Encounter: 09:30 - Assessment and plan (1) Nausea Current Visit: Yes Status: Acute Assessment and plan: Possibly related to viral gastritis or diabetic gastroparesis. Continue when necessary IV Zofran and Phenergan, supportive care. Continues to have significant nausea and dry heaving, will start scheduled Reglan. Cannot obtain studies for gastroparesis as she continues to require antiemetics. Will consult GI when available. Diet as tolerated. (2) Acute and chronic respiratory failure ([id number]) Current Visit: Yes Status: Acute Assessment and plan: Significantly improved mental status and respiratory status. Pulmonology consult and f/up appreciated. Continue supplemental oxygen and when necessary noninvasive positive pressure ventilation with BiPAP in AVAPS mode. Continue IV Lasix for now. Echocardiogram from February 2017 showed preserved ejection fraction and indeterminate diastolic function, due to technically poor study due to body habitus. Patient will require overnight BiPAP qualification study for home BiPAP. Qualifiers: Respiratory failure complication: hypoxia and hypercapnia Qualified Code(s) : J96.21 - Acute and chronic respiratory failure with hypoxia; J96.22 - Acute and chronic respiratory failure with hypercapnia; J96.22 - Acute and chronic respiratory failure with hypercapnia; J96.22 - Acute and chronic respiratory failure with hypercapnia (3) Sepsis Current Visit: Yes Status: Acute Assessment and plan: Presented with fever, tachycardia and leukocytosis with possible pneumonia. Patient continues to have fever spikes every 24 hours, although intensity is decreasing. We will repeat blood cultures tonight if she spikes again. Continue IV Zosyn and Levaquin and hold vancomycin, preliminary blood cultures remain negative. Lactic acid noted to be within normal limits. Hemodynamically stable. Qualifiers: Sepsis type: sepsis due to unspecified organism Qualified Code(s): A41.9 - Sepsis, unspecified organism (4) HCAP (healthcare-associated pneumonia) Current Visit: Yes Status: Acute Assessment and plan: Recently discharged from hospital. Chest x-ray and CT imaging shows possible right lower lobe consolidation/atelectasis. Continue broad-spectrum IV antibiotics-IV Levaquin, Zosyn . Preliminary blood cultures negative, will continue current antibiotics due to continued fever spikes. Sputum culture cannot be sent. Influenza A and B antigen negative. Continue supportive care and supplemental oxygen. (5) RAMO (obstructive sleep apnea) Current Visit: Yes Status: Chronic Assessment and plan: Continue BiPAP support as mentioned above. Patient requires overnight BiPAP qualification study prior to discharge, her CPAP needs to be changed BiPAP. (6) Diabetes Current Visit: Yes Status: Chronic Assessment and plan: Blood sugars noted to be elevated, in 200s. Patient is noted to be receiving less her dose of insulin compared to her home dose. Will resume home insulin dose and Continue Accu-Chek blood glucose monitoring. Diabetic diet. Qualifiers: Diabetes mellitus type: type 2 Diabetes mellitus complication status: with hyperglycemia Diabetes mellitus intermediate project manager insulin use: without senior living use Qualified Code(s): E11.65 - Type 2 diabetes mellitus with hyperglycemia (7) Acute superficial venous thrombosis of left lower extremity Current Visit: Yes Status: Resolved (8) HLD (hyperlipidemia) Current Visit: Yes Status: Chronic Qualifiers: Hyperlipidemia type: unspecified Qualified Code(s): E78.5 - Hyperlipidemia , unspecified - Subjective Interval history: Doing much better, no shortness of breath, alert and oriented; requests to restart Lyrica for neuropathic pain; blood sugars noted to be elevated, will resume home insulin dose; continues to have fever spikes in the evening along with nausea and dry heaving; - Constitutional Vitals: Temp Pulse Resp BP Pulse Ox 98.5 F 80 22 121/63 95 08/08/17 07:49 08/08/17 07:49 08/08/17 07:49 08/08/17 07:49 08/08/17 07:49 General appearance: Present: A&O X 3, morbidly obese, answers questions appropriately - Respiratory Respiratory exam: Present: CTAB (improving breath sounds). Absent: accessory muscle use, rales, rhonchi, wheezes - Cardiovascular Cardiovascular exam: Present: RRR, +S1, +S2. Absent: diastolic murmur, gallop, rubs, systolic murmur - GI/Abdominal GI/Abdominal exam: Present: normal bowel sounds, soft (obese), no peritoneal signs. Absent: distended, tenderness - Extremities Exam Extremities exam: Present: pedal edema, warm, radial pulses palpable and symmetrical. Absent: calf tenderness, cyanotic - Neurological Exam Neurological exam: Present: CN II-XII intact, oriented X3, no focal deficits. Absent: pronater drift, facial droop, speech deficit Internal Medicine: Result - Labs CBC & Chem 7: 08/08/17 03:57 08/08/17 03:57 Labs: Short CBC 08/08/17 Range/Units 03:57 WBC 10.7 (4.3-11.1) K/mcL Hgb 10.5 L (11.5-15.4) g/dL Hct 34.7 L (35.3-44.9) % Plt Count 219 (140-400) K/mcL Neutrophils # 7.7 (1.6-8.9) K/mcL BMP 08/08/17 03:57 Sodium 138 Potassium 3.3 L Chloride 97 L Carbon Dioxide 32 H BUN 9 Creatinine 0.81 Glucose 196 H Calcium 9.0 - ABG Interpretation ABG results: ABG ABG pH 7.29 pH Units (7.32-7.45) L 08/06/17 15:56 ABG pCO2 82 mmHg (35-45) H* 08/06/17 15:56 ABG pO2 65 mmHg (85-104) L 08/06/17 15:56 ABG O2 Saturation 88 % (95-98) L 08/06/17 15:56 PT/INR, D-dimer PT 13.6 Seconds (9.4-12.1) H 08/04/17 18:21 Consult Discharge Plan - Plan Referrals: Nomi Valle MD [Primary Care Provider] - 08/18/17 9:15 am ()
[2017-08-08] MEDS: Insulin NPH/REG 70/30 100 UNIT/ML (x5UNIT) SQ SCH ×2 (10:43→21:18)
[2017-08-08] MEDS: Pregabalin 75 MG CAPSULE PO SCH ×2 (10:43→21:18)
[2017-08-08] MEDS: Vancomycin 1,500 MG in D5% in Water 250 ML IVPB SCH (10:43)
[2017-08-08] MEDS: Budesonide/Formoterol 80/4.5 MDI IH SCH ×2 (11:31→22:14)
--- NOTE | 2017-08-08 11:46 | Electrocardiograph Report ---
[place] [id number] Test Date: 2017-08-04 Pat Name: Yin Bowers Department: 103 Room: 2N15 Gender: F [employer] Director: RUBA : 1955 Requested By: Cecilia Fry Order Number: [id number] Reading MD: Alonso Terrazas Measurements Intervals [place] Rate: 92 P: 2 OR: 170 QRS: 21 QRSD: 88 T: 29 QT: 329 QTc: 379 Interpretive Statements SINUS RHYTHM Electronically Signed On 08-08-2017 11:44:39 EST by Alonso Terrazas
--- NOTE | 2017-08-08 14:36 | Pulmonology Progress Note ---
Date of Encounter: 08/08/17 Time of Encounter: 13:00 Assessment and Plan (1) Acute and chronic respiratory failure ([id number]) Current Visit: Yes Status: Acute Secondary to COPD exacerbation complicated by possible suspected gram negative and positive pneumonia , RAMO/OHS counseled the importance of BIPAP to use when she sleeps , yesterday she didnt use her BIPAP because she is claustrophobic counseled we will teach her how to put on the mask and take it off in that scenario she is agreeable to use the machine . To continue BIPAP whenever she sleeps . Asked her bring her home machine which she tolerates better. Will check the machine whether this BIPAP or CPAP , leading respiratory was called by Patient's RN it looks like patient has a BIPAP will clarify tomorrow. Qualifiers: Respiratory failure complication: hypoxia and hypercapnia Qualified Code(s) : J96.21 - Acute and chronic respiratory failure with hypoxia; J96.22 - Acute and chronic respiratory failure with hypercapnia; J96.22 - Acute and chronic respiratory failure with hypercapnia; J96.22 - Acute and chronic respiratory failure with hypercapnia (2) HCAP (healthcare-associated pneumonia) Current Visit: Yes Status: Acute To continue the current regimen of antibiotics , so far blood cultures are negative , repeat blood cultures if she spikes to repeat cultures Subjective Principal diagnosis: Acute on Chronic hypercapnic respiratory failure Interval history: Patient is sleeping in her bed but fully awake conscious oriented x 3 , denies any shortness of breadth , cough and sputum production is minimal Objective PUL Vital signs: Last Vital Signs Temp 98.8 F 08/08/17 11:12 Pulse 76 08/08/17 11:12 Resp 20 08/08/17 11:12 BP 115/65 08/08/17 11:12 Pulse Ox 96 08/08/17 11:12 Auscultation: bilateral: diminished breath sounds Results - Laboratory Findings CBC and BMP: 08/08/17 03:57 08/08/17 03:57 ABG ABG pH 7.29 pH Units (7.32-7.45) L 08/06/17 15:56 ABG pCO2 82 mmHg (35-45) H* 08/06/17 15:56 ABG pO2 65 mmHg (85-104) L 08/06/17 15:56 ABG O2 Saturation 88 % (95-98) L 08/06/17 15:56 PT/INR, D-dimer PT 13.6 Seconds (9.4-12.1) H 08/04/17 18:21 Abnormal lab findings: Abnormal lab results RBC 3.57 M/mcL (3.82-4.97) L 08/08/17 03:57 Hgb 10.5 g/dL (11.5-15.4) L 08/08/17 03:57 Hct 34.7 % (35.3-44.9) L 08/08/17 03:57 MCHC 30.3 g/dL (31.6-35.5) L 08/08/17 03:57 RDW 15.4 % (11.5-14.5) H 08/08/17 03:57 Nucleated RBCs/100 WBC 0.2 /100 WBC (0) H 08/06/17 04:59 PT 13.6 Seconds (9.4-12.1) H 08/04/17 18:21 ABG pH 7.29 pH Units (7.32-7.45) L 08/06/17 15:56 ABG pCO2 82 mmHg (35-45) H* 08/06/17 15:56 ABG pO2 65 mmHg (85-104) L 08/06/17 15:56 ABG HCO3 40 mEq/L (21-27) H 08/06/17 15:56 ABG Total CO2 42 mEq/L (20-26) H 08/06/17 15:56 ABG O2 Saturation 88 % (95-98) L 08/06/17 15:56 ABG Base Excess 10 mEq/L (-2 to 3) H 08/06/17 15:56 Potassium 3.3 mEq/L (3.5-4.5) L 08/08/17 03:57 Chloride 97 mEq/L (98-109) L 08/08/17 03:57 Carbon Dioxide 32 mEq/L (19-29) H 08/08/17 03:57 Glucose 196 mg/dL (70-99) H 08/08/17 03:57 POC Glucose 199 (58-89) H 08/07/17 20:49 B-Natriuretic Peptide 171 pg/mL (0-100) H 08/04/17 18:21 Albumin 3.0 g/dL (3.5-5.0) L 08/04/17 18:21 Globulin 4.3 g/dL (2.4-3.5) H 08/04/17 18:21 Albumin/Globulin Ratio 0.7 (1.1-2.2) L 08/04/17 18:21 - Clinical Findings Intake & Output: Intake & Output 08/07/17 08/08/17 08/08/17 23:59 07:59 15:59 Intake Total 940 / 940 450 / 450 660 / 660 Output Total 150 / 150 1800 / 1800 Balance 940 / 940 300 / 300 -1140 / -1140 Consult Discharge Plan - Plan Referrals: Nomi Valle MD [Primary Care Provider] - 08/18/17 9:15 am ()
[2017-08-08] MEDS: Levofloxacin 750 MG/150 ML 750 MG/150 ML BAG IVPB SCH (21:18)
[2017-08-09] MEDS: Ipratropium/Albuterol Neb 3 ML IH SCH ×4 (03:52→21:47)
[2017-08-09] MEDS: Piperacillin/Tazobactam 3.375 GM/200 ML BAG IVPB SCH ×3 (06:41→23:04)
[2017-08-09] MEDS: *HR* Heparin 5,000 UNIT/ML VIAL SQ SCH ×3 (06:41→21:21)
[2017-08-09] MEDS: Insulin LISPRO 300 UNITS/3 ML VIAL SQ SCH ×4 (07:41→21:21)
[2017-08-09 08:11] LABS: BUN/Creatinine Ratio 10 (6-26); Blood Urea Nitrogen 8 mg/dL (7-20); Carbon Dioxide 32 mEq/L (19-29); Chloride 99 mEq/L (98-109); Glucose 89 mg/dL (70-99); Magnesium 1.7 mg/dL (1.6-2.6); Osmolality,Calculated 292 (280-300); Potassium 3.1 mEq/L (3.5-4.5); Sodium 142 mEq/L (136-145); eGFR For African Americans > 60 (> 60); eGFR For Non-African Americans > 60 (> 60)
[2017-08-09] MEDS: Aspirin Enteric Coated 81 MG Tablet PO SCH (09:01)
[2017-08-09] MEDS: Topiramate 25 MG TABLET PO SCH ×2 (09:01→21:21)
[2017-08-09] MEDS: Pregabalin 75 MG CAPSULE PO SCH ×2 (09:01→21:21)
[2017-08-09] MEDS: Furosemide 40 MG/4 ML VIAL IVP SCH (09:01)
[2017-08-09] MEDS: Insulin NPH/REG 70/30 100 UNIT/ML (x5UNIT) SQ SCH ×2 (09:02→18:50)
[2017-08-09] MEDS: Budesonide/Formoterol 80/4.5 MDI IH SCH ×2 (09:47→21:47)
--- NOTE | 2017-08-09 14:09 | Internal Med Progress Note ---
Date of Encounter: 08/09/17 Time of Encounter: 14:06 - Assessment and plan (1) Acute on chronic respiratory failure with hypoxia Current Visit: Yes Status: Acute Assessment and plan: Acute on chronic hypoxic hypercapnic respiratory failure secondary to sepsis due to healthcare associated pneumonia present upon admission/possible gram- negative pneumonia Continue on antibiotic therapy with Levaquin, Zosyn and vancomycin day 6, with complete 1 week of antibiotic therapy tomorrow Continue oxygen therapy, BiPAP as needed Patient has chronic respiratory failure with home oxygen at 3 L/m via nasal cannula due to underlying COPD and obstructive sleep apnea. . (2) Diastolic CHF Current Visit: Yes Status: Acute Assessment and plan: History of diastolic CHF with an ejection fraction of 60% Continue Lasix Qualifiers: Congestive heart failure chronicity: chronic Qualified Code(s): I50.32 - Chronic diastolic (congestive) heart failure (3) RAMO (obstructive sleep apnea) Current Visit: Yes Status: Chronic Assessment and plan: Continue BiPAP support as mentioned above. Patient requires overnight BiPAP qualification study prior to discharge, her CPAP needs to be changed BiPAP. (4) Diabetes Current Visit: Yes Status: Chronic Assessment and plan: Continue insulin NPH with regular 70/30 , 65 units at night and 85 units in the morning, insulin sliding scale. Diabetic diet. Qualifiers: Diabetes mellitus type: type 2 Diabetes mellitus complication status: with hyperglycemia Diabetes mellitus correction insulin use: without correction use Qualified Code(s): E11.65 - Type 2 diabetes mellitus with hyperglycemia (5) Acute superficial venous thrombosis of left lower extremity Current Visit: Yes Status: Resolved Assessment and plan: Recently diagnosed with superficial venous thrombosis of left lower extremity. Repeat lower extremity venous Doppler showed no evidence of superficial or deep venous thrombosis. (6) Sepsis Current Visit: Yes Status: Acute Assessment and plan: Presented with fever, tachycardia and leukocytosis with possible pneumonia. Patient continues to have fever spikes every 24 hours, had a fever 100.2 at noon Qualifiers: Sepsis type: sepsis due to unspecified organism Qualified Code(s): A41.9 - Sepsis, unspecified organism (7) Hypertension Current Visit: No Status: Chronic Qualifiers: Hypertension type: essential hypertension Qualified Code(s): I10 - Essential (primary) hypertension (8) Chronic respiratory failure with hypoxia, on home O2 therapy Current Visit: Yes Status: Chronic (9) Hypokalemia due to loss of potassium Current Visit: No Status: Acute (10) HCAP (healthcare-associated pneumonia) Current Visit: Yes Status: Acute Assessment and plan: Recently discharged from hospital. Chest x-ray and CT imaging shows possible right lower lobe consolidation/atelectasis. Preliminary blood cultures negative, will continue current antibiotics due to continued fever spikes. Sputum culture cannot be sent. Influenza A and B antigen negative. Continue supportive care and supplemental oxygen. (11) Morbid obesity with BMI of 45.0-49.9, adult Current Visit: Yes Status: Chronic - Subjective Interval history: Feeling slightly better, less short of breath, denies any chest pain, no abdominal pain or dysuria. Feels very weak - Constitutional Vitals: Temp Pulse Resp BP Pulse Ox 100.2 F H 88 20 115/64 94 08/09/17 12:12 08/09/17 12:12 08/09/17 12:12 08/09/17 12:12 08/09/17 12:12 General appearance: Present: A&O X 3, morbidly obese, answers questions appropriately - Head Head exam: Present: atraumatic, normocephalic - Eye Eye exam: Present: PERRL, conjuntiva pink, sclera anicteric Pupils: Present: PERRL - Neck Neck exam general surgery: Present: supple, trachea midline. Absent: lymphadenopathy - Respiratory Respiratory exam: Present: CTAB, rales (Fine bibasilar crackles). Absent: accessory muscle use, rhonchi, wheezes - Cardiovascular Cardiovascular exam: Present: RRR, +S1, +S2. Absent: diastolic murmur, gallop, rubs, systolic murmur - GI/Abdominal GI/Abdominal exam: Present: normal bowel sounds, soft, no peritoneal signs. Absent: distended, tenderness - Extremities Exam Extremities exam: Present: warm, radial pulses palpable and symmetrical. Absent : calf tenderness, cyanotic, pedal edema - Neurological Exam Neurological exam: Present: CN II-XII intact, oriented X3, no focal deficits. Absent: pronater drift, facial droop, speech deficit - Skin Skin exam: Present: dry. Absent: intact (+2 pitting edema in both lower extremities with some erythema on both shins) Internal Medicine: Result - Labs CBC & Chem 7: 08/08/17 03:57 08/09/17 07:42 Labs: BMP 08/09/17 07:42 Sodium 142 Potassium 3.1 L Chloride 99 Carbon Dioxide 32 H BUN 8 Creatinine 0.80 Glucose 89 Calcium 9.0 - ABG Interpretation ABG results: ABG ABG pH 7.29 pH Units (7.32-7.45) L 08/06/17 15:56 ABG pCO2 82 mmHg (35-45) H* 08/06/17 15:56 ABG pO2 65 mmHg (85-104) L 08/06/17 15:56 ABG O2 Saturation 88 % (95-98) L 08/06/17 15:56 PT/INR, D-dimer PT 13.6 Seconds (9.4-12.1) H 08/04/17 18:21 Consult Discharge Plan - Plan Referrals: Nomi Valle MD [Primary Care Provider] - 08/18/17 9:15 am ()
--- NOTE | 2017-08-09 18:10 | Pulmonology Progress Note ---
Date of Encounter: 08/09/17 Time of Encounter: 11:30 Assessment and Plan (1) Acute and chronic respiratory failure ([id number]) Current Visit: Yes Status: Acute Secondary to COPD exacerbation complicated by possible suspected gram negative and positive pneumonia , RAMO/OHS counseled the importance of BIPAP to use when she sleeps , yesterday she used her BIPAP for a while . To continue BIPAP whenever she sleeps . checked the Home machine it is a BIPAP with a pressure support of 6 . Will try with our BIPAP with Pressure support of 8 with BIPAP 14 /6 with blood gas in the morning . To follow up with outpatient pulmonology in 8 weeks . Qualifiers: Respiratory failure complication: hypoxia and hypercapnia Qualified Code(s) : J96.21 - Acute and chronic respiratory failure with hypoxia; J96.22 - Acute and chronic respiratory failure with hypercapnia; J96.22 - Acute and chronic respiratory failure with hypercapnia; J96.22 - Acute and chronic respiratory failure with hypercapnia (2) HCAP (healthcare-associated pneumonia) Current Visit: Yes Status: Acute To continue the current regimen of antibiotics , so far blood cultures are negative , repeat blood cultures if she spikes to repeat cultures . Subjective Principal diagnosis: Acute on Chronic hypercapnic respiratory failure Interval history: Patient is lying in bed but fully awake conscious oriented x 3 , denies any shortness of breadth , cough and sputum production is minimal Objective PUL Vital signs: Last Vital Signs Temp 99.3 F 08/09/17 16:02 Pulse 89 08/09/17 16:02 Resp 20 08/09/17 16:56 BP 111/58 08/09/17 16:02 Pulse Ox 93 08/09/17 16:56 Auscultation: bilateral: diminished breath sounds, other (bilateral bibasilar crackles ) Results - Laboratory Findings CBC and BMP: 08/08/17 03:57 08/09/17 07:42 ABG ABG pH 7.29 pH Units (7.32-7.45) L 08/06/17 15:56 ABG pCO2 82 mmHg (35-45) H* 08/06/17 15:56 ABG pO2 65 mmHg (85-104) L 08/06/17 15:56 ABG O2 Saturation 88 % (95-98) L 08/06/17 15:56 PT/INR, D-dimer PT 13.6 Seconds (9.4-12.1) H 08/04/17 18:21 Abnormal lab findings: Abnormal lab results RBC 3.57 M/mcL (3.82-4.97) L 08/08/17 03:57 Hgb 10.5 g/dL (11.5-15.4) L 08/08/17 03:57 Hct 34.7 % (35.3-44.9) L 08/08/17 03:57 MCHC 30.3 g/dL (31.6-35.5) L 08/08/17 03:57 RDW 15.4 % (11.5-14.5) H 08/08/17 03:57 Nucleated RBCs/100 WBC 0.2 /100 WBC (0) H 08/06/17 04:59 PT 13.6 Seconds (9.4-12.1) H 08/04/17 18:21 ABG pH 7.29 pH Units (7.32-7.45) L 08/06/17 15:56 ABG pCO2 82 mmHg (35-45) H* 08/06/17 15:56 ABG pO2 65 mmHg (85-104) L 08/06/17 15:56 ABG HCO3 40 mEq/L (21-27) H 08/06/17 15:56 ABG Total CO2 42 mEq/L (20-26) H 08/06/17 15:56 ABG O2 Saturation 88 % (95-98) L 08/06/17 15:56 ABG Base Excess 10 mEq/L (-2 to 3) H 08/06/17 15:56 Potassium 3.1 mEq/L (3.5-4.5) L 08/09/17 07:42 Carbon Dioxide 32 mEq/L (19-29) H 08/09/17 07:42 POC Glucose 172 (58-89) H 08/09/17 16:06 B-Natriuretic Peptide 171 pg/mL (0-100) H 08/04/17 18:21 Albumin 3.0 g/dL (3.5-5.0) L 08/04/17 18:21 Globulin 4.3 g/dL (2.4-3.5) H 08/04/17 18:21 Albumin/Globulin Ratio 0.7 (1.1-2.2) L 08/04/17 18:21 - Clinical Findings Intake & Output: Intake & Output 08/09/17 08/09/17 08/09/17 07:59 15:59 23:59 Intake Total 200 / 200 1100 / 1100 240 / 240 Output Total 400 / 400 1600 / 1600 Balance 200 / 200 700 / 700 -1360 / -1360 Weight 158.3 kg Consult Discharge Plan - Plan Referrals: Nomi Valle MD [Primary Care Provider] - 08/18/17 9:15 am ()
[2017-08-09] MEDS: Levofloxacin 750 MG/150 ML 750 MG/150 ML BAG IVPB SCH (21:21)
[2017-08-09] MEDS: Acetaminophen 325 MG TABLET PO PRN (21:25)
[2017-08-10] MEDS: Ipratropium/Albuterol Neb 3 ML IH SCH ×4 (04:07→22:31)
[2017-08-10 04:51] LABS: ABG Base Excess 10 mEq/L (-2 to 3); ABG HCO3 38 mEq/L (21-27); ABG Oxygen Saturation 98 % (95-98); ABG PCO2 74 mmHg (35-45); ABG PH 7.32 pH Units (7.32-7.45); ABG PO2 124 mmHg (85-104); ABG TCO2 41 mEq/L (20-26)
[2017-08-10] MEDS: Piperacillin/Tazobactam 3.375 GM/200 ML BAG IVPB SCH ×3 (06:04→22:31)
[2017-08-10] MEDS: *HR* Heparin 5,000 UNIT/ML VIAL SQ SCH ×3 (06:04→20:39)
[2017-08-10] MEDS: Insulin LISPRO 300 UNITS/3 ML VIAL SQ SCH ×4 (08:13→20:40)
[2017-08-10] MEDS: Insulin NPH/REG 70/30 100 UNIT/ML (x5UNIT) SQ SCH ×2 (09:29→18:28)
[2017-08-10] MEDS: Topiramate 25 MG TABLET PO SCH ×2 (09:29→20:39)
[2017-08-10] MEDS: Pregabalin 75 MG CAPSULE PO SCH ×2 (09:29→20:39)
[2017-08-10] MEDS: Furosemide 40 MG/4 ML VIAL IVP SCH (09:29)
[2017-08-10] MEDS: Aspirin Enteric Coated 81 MG Tablet PO SCH (09:29)
--- NOTE | 2017-08-10 10:30 | Pulmonology Progress Note ---
Date of Encounter: 08/10/17 Time of Encounter: 11:00 Assessment and Plan (1) Acute and chronic respiratory failure ([id number]) Current Visit: Yes Status: Acute Secondary to COPD exacerbation complicated by possible suspected gram negative and positive pneumonia , RAMO/OHS counseled the importance of BIPAP to use when she sleeps , yesterday she used her BIPAP for a while . To continue BIPAP whenever she sleeps . checked the Home machine it is a BIPAP with a pressure support of 6 . Tried with our BIPAP with Pressure support of 8 with BIPAP 14/ 6 with blood gas in the morning showed PH 7:32 and PaCO2 in 70's .Will give prescription 16/6 cm H2O will fax it jayesh tomorrow To follow up with outpatient pulmonology in 8 weeks . Qualifiers: Respiratory failure complication: hypoxia and hypercapnia Qualified Code(s) : J96.21 - Acute and chronic respiratory failure with hypoxia; J96.22 - Acute and chronic respiratory failure with hypercapnia; J96.22 - Acute and chronic respiratory failure with hypercapnia; J96.22 - Acute and chronic respiratory failure with hypercapnia (2) HCAP (healthcare-associated pneumonia) Current Visit: Yes Status: Acute To continue the current regimen of antibiotics , so far blood cultures are negative , repeat blood cultures if she spikes to repeat cultures . For the last 24 hours there is no spike in fever. Subjective Principal diagnosis: Acute on Chronic hypercapnic respiratory failure Interval history: Patient is sitting in bed but fully awake conscious oriented x 3 , denies any shortness of breadth , cough and sputum production is minimal Objective PUL Vital signs: Last Vital Signs Temp 98.4 F 08/10/17 08:03 Pulse 84 08/10/17 08:03 Resp 16 08/10/17 08:03 BP 131/70 08/10/17 08:03 Pulse Ox 94 08/10/17 08:03 Auscultation: bilateral: diminished breath sounds, wheezes (some scattered wheezes ) Results - Laboratory Findings CBC and BMP: 08/08/17 03:57 08/10/17 11:28 ABG ABG pH 7.32 pH Units (7.32-7.45) 08/10/17 04:43 ABG pCO2 74 mmHg (35-45) H* 08/10/17 04:43 ABG pO2 124 mmHg (85-104) H 08/10/17 04:43 ABG O2 Saturation 98 % (95-98) 08/10/17 04:43 PT/INR, D-dimer PT 13.6 Seconds (9.4-12.1) H 08/04/17 18:21 Abnormal lab findings: Abnormal lab results RBC 3.57 M/mcL (3.82-4.97) L 08/08/17 03:57 Hgb 10.5 g/dL (11.5-15.4) L 08/08/17 03:57 Hct 34.7 % (35.3-44.9) L 08/08/17 03:57 MCHC 30.3 g/dL (31.6-35.5) L 08/08/17 03:57 RDW 15.4 % (11.5-14.5) H 08/08/17 03:57 Nucleated RBCs/100 WBC 0.2 /100 WBC (0) H 08/06/17 04:59 PT 13.6 Seconds (9.4-12.1) H 08/04/17 18:21 ABG pCO2 74 mmHg (35-45) H* 08/10/17 04:43 ABG pO2 124 mmHg (85-104) H 08/10/17 04:43 ABG HCO3 38 mEq/L (21-27) H 08/10/17 04:43 ABG Total CO2 41 mEq/L (20-26) H 08/10/17 04:43 ABG Base Excess 10 mEq/L (-2 to 3) H 08/10/17 04:43 Potassium 3.1 mEq/L (3.5-4.5) L 08/09/17 07:42 Carbon Dioxide 32 mEq/L (19-29) H 08/09/17 07:42 POC Glucose 170 (58-89) H 08/09/17 21:19 B-Natriuretic Peptide 171 pg/mL (0-100) H 08/04/17 18:21 Albumin 3.0 g/dL (3.5-5.0) L 08/04/17 18:21 Globulin 4.3 g/dL (2.4-3.5) H 08/04/17 18:21 Albumin/Globulin Ratio 0.7 (1.1-2.2) L 11/27/17 18:21 - Clinical Findings Intake & Output: Intake & Output 08/09/17 08/10/17 08/10/17 23:59 07:59 15:59 Intake Total 440 / 440 200 / 200 Output Total 1600 / 1600 Balance -1160 / -1160 200 / 200 Weight 160.1 kg Consult Discharge Plan - Plan Referrals: Nomi Valle MD [Primary Care Provider] - 08/18/17 9:15 am ()
[2017-08-10] MEDS: Budesonide/Formoterol 80/4.5 MDI IH SCH ×2 (10:52→22:31)
--- NOTE | 2017-08-10 10:53 | Internal Med Progress Note ---
Date of Encounter: 08/10/17 Time of Encounter: 10:51 - Assessment and plan (1) Acute on chronic respiratory failure with hypoxia Current Visit: Yes Status: Acute Assessment and plan: Acute on chronic hypoxic hypercapnic respiratory failure secondary to sepsis due to healthcare associated pneumonia present upon admission/possible gram- negative pneumonia Continue on antibiotic therapy with Levaquin, Zosyn and vancomycin day 7, still running fevers Continue oxygen therapy, BiPAP as needed Patient has chronic respiratory failure with home oxygen at 3 L/m via nasal cannula due to underlying COPD and obstructive sleep apnea. . (2) Diastolic CHF Current Visit: Yes Status: Acute Assessment and plan: History of diastolic CHF with an ejection fraction of 60% Continue Lasix Qualifiers: Congestive heart failure chronicity: chronic Qualified Code(s): I50.32 - Chronic diastolic (congestive) heart failure (3) RAMO (obstructive sleep apnea) Current Visit: Yes Status: Chronic Assessment and plan: Continue BiPAP support as mentioned above. Patient requires overnight BiPAP qualification study prior to discharge, her CPAP needs to be changed BiPAP. (4) Diabetes Current Visit: Yes Status: Chronic Assessment and plan: Continue insulin NPH with regular 70/30 , 65 units at night and 85 units in the morning, insulin sliding scale. Diabetic diet. Qualifiers: Diabetes mellitus type: type 2 Diabetes mellitus complication status: with hyperglycemia Diabetes mellitus predatory animal exterminator insulin use: without intermediate use Qualified Code(s): E11.65 - Type 2 diabetes mellitus with hyperglycemia (5) Acute superficial venous thrombosis of left lower extremity Current Visit: Yes Status: Resolved Assessment and plan: Recently diagnosed with superficial venous thrombosis of left lower extremity. Repeat lower extremity venous Doppler showed no evidence of superficial or deep venous thrombosis. (6) Sepsis Current Visit: Yes Status: Acute Assessment and plan: Presented with fever, tachycardia and leukocytosis with possible pneumonia. Patient continues to have fever spikes every 24 hours, had a fever 100.2 at noon Qualifiers: Sepsis type: sepsis due to unspecified organism Qualified Code(s): A41.9 - Sepsis, unspecified organism (7) Hypertension Current Visit: No Status: Chronic Qualifiers: Hypertension type: essential hypertension Qualified Code(s): I10 - Essential (primary) hypertension (8) Chronic respiratory failure with hypoxia, on home O2 therapy Current Visit: Yes Status: Chronic (9) Hypokalemia due to loss of potassium Current Visit: No Status: Acute (10) HCAP (healthcare-associated pneumonia) Current Visit: Yes Status: Acute Assessment and plan: Recently discharged from hospital. Chest x-ray and CT imaging shows possible right lower lobe consolidation/atelectasis. Preliminary blood cultures negative, will continue current antibiotics due to continued fever spikes. Sputum culture cannot be sent. Influenza A and B antigen negative. Continue supportive care and supplemental oxygen. (11) Morbid obesity with BMI of 45.0-49.9, adult Current Visit: Yes Status: Chronic - Subjective Interval history: No new complaints. Feeling slightly better, less short of breath, denies any chest pain, no abdominal pain or dysuria. Feels very weak, ran a fever of 100 last night - Constitutional Vitals: Temp Pulse Resp BP Pulse Ox 98.4 F 84 16 131/70 94 08/10/17 08:03 08/10/17 08:03 08/10/17 08:03 08/10/17 08:03 08/10/17 08:03 General appearance: Present: A&O X 3, morbidly obese, answers questions appropriately Exam: - Head Head exam: Present: atraumatic, normocephalic - Eye Eye exam: Present: PERRL, conjuntiva pink, sclera anicteric Pupils: Present: PERRL - Neck Neck exam general surgery: Present: supple, trachea midline. Absent: lymphadenopathy - Respiratory Respiratory exam: Present: CTAB, rales (Fine bibasilar crackles). Absent: accessory muscle use, rhonchi, wheezes - Cardiovascular Cardiovascular exam: Present: RRR, +S1, +S2. Absent: diastolic murmur, gallop, rubs, systolic murmur - GI/Abdominal GI/Abdominal exam: Present: normal bowel sounds, soft, no peritoneal signs. Absent: distended, tenderness - Extremities Exam Extremities exam: Present: warm, radial pulses palpable and symmetrical. Absent : calf tenderness, cyanotic, pedal edema - Neurological Exam Neurological exam: Present: CN II-XII intact, oriented X3, no focal deficits. Absent: pronater drift, facial droop, speech deficit - Skin Skin exam: Present: dry. Absent: intact (+2 pitting edema in both lower extremities with some erythema on both shins) Internal Medicine: Result - Labs CBC & Chem 7: 08/08/17 03:57 08/09/17 07:42 - ABG Interpretation ABG results: ABG ABG pH 7.32 pH Units (7.32-7.45) 08/10/17 04:43 ABG pCO2 74 mmHg (35-45) H* 08/10/17 04:43 ABG pO2 124 mmHg (85-104) H 08/10/17 04:43 ABG O2 Saturation 98 % (95-98) 08/10/17 04:43 PT/INR, D-dimer PT 13.6 Seconds (9.4-12.1) H 08/04/17 18:21 Consult Discharge Plan - Plan Referrals: Nomi Valle MD [Primary Care Provider] - 08/18/17 9:15 am ()
[2017-08-10] MEDS: Acetaminophen 325 MG TABLET PO PRN (18:42)
[2017-08-10] MEDS: Levofloxacin 750 MG/150 ML 750 MG/150 ML BAG IVPB SCH (20:40)
[2017-08-11] MEDS: Ipratropium/Albuterol Neb 3 ML IH SCH ×3 (03:58→16:10)
[2017-08-11 05:14] LABS: Hematocrit 34.8 % (35.3-44.9); Hemoglobin 10.6 g/dL (11.5-15.4); Mean Corpuscular HGB Conc 30.5 g/dL (31.6-35.5); Mean Corpuscular Hemoglobin 30.2 pg (28.0-33.3); Mean Corpuscular Volume 99.1 fL (83.0-100.0); Mean Platelet Volume 10.3 fL (9.4-12.4); Platelet Count 213 K/mcL (140-400); Red Blood Count 3.51 M/mcL (3.82-4.97); Red Cell Distribution Width 15.6 % (11.5-14.5)
[2017-08-11 05:25] LABS: BUN/Creatinine Ratio 14 (6-26); Blood Urea Nitrogen 12 mg/dL (7-20); Calcium 9.2 mg/dL (8.6-10.8); Carbon Dioxide 33 mEq/L (19-29); Chloride 100 mEq/L (98-109); Glucose 136 mg/dL (70-99); Osmolality,Calculated 298 (280-300); Potassium 3.5 mEq/L (3.5-4.5); Sodium 143 mEq/L (136-145); eGFR For African Americans > 60 (> 60); eGFR For Non-African Americans > 60 (> 60)
[2017-08-11] MEDS: *HR* Heparin 5,000 UNIT/ML VIAL SQ SCH ×2 (06:26→17:32)
[2017-08-11] MEDS: Piperacillin/Tazobactam 3.375 GM/200 ML BAG IVPB SCH ×2 (06:26→17:33)
[2017-08-11] MEDS: Insulin LISPRO 300 UNITS/3 ML VIAL SQ SCH ×2 (08:35→12:18)
[2017-08-11] MEDS: Pregabalin 75 MG CAPSULE PO SCH (08:43)
[2017-08-11] MEDS: Aspirin Enteric Coated 81 MG Tablet PO SCH (08:43)
[2017-08-11] MEDS: Topiramate 25 MG TABLET PO SCH (08:43)
[2017-08-11] MEDS: Furosemide 40 MG/4 ML VIAL IVP SCH (08:44)
[2017-08-11] MEDS: Insulin NPH/REG 70/30 100 UNIT/ML (x5UNIT) SQ SCH (08:44)
[2017-08-11] MEDS: Acetaminophen 325 MG TABLET PO PRN (10:31)
[2017-08-11] MEDS: Budesonide/Formoterol 80/4.5 MDI IH SCH (10:42)
--- NOTE | 2017-08-11 13:58 | Internal Med Progress Note ---
Date of Encounter: 08/11/17 Time of Encounter: 13:00 - Assessment and plan (1) Acute on chronic respiratory failure with hypoxia Current Visit: Yes Status: Acute Assessment and plan: Acute on chronic hypoxic hypercapnic respiratory failure secondary to sepsis due to healthcare associated pneumonia present upon admission/possible gram- negative pneumonia Continue on antibiotic therapy with Levaquin, Zosyn and vancomycin day 7, still running fevers Continue oxygen therapy, BiPAP as needed Patient has chronic respiratory failure with home oxygen at 3 L/m via nasal cannula due to underlying COPD and obstructive sleep apnea. . (2) RAMO (obstructive sleep apnea) Current Visit: Yes Status: Chronic (3) Morbid obesity with BMI of 50.0-59.9, adult Current Visit: Yes Status: Acute (4) DVT prophylaxis Current Visit: No Status: Acute (5) Diabetes Current Visit: Yes Status: Chronic Qualifiers: Diabetes mellitus type: type 2 Diabetes mellitus complication status: with hyperglycemia Diabetes mellitus intermission coordinator insulin use: without care home use Qualified Code(s): E11.65 - Type 2 diabetes mellitus with hyperglycemia (6) Murmur, cardiac Current Visit: No Status: Chronic (7) Acute superficial venous thrombosis of left lower extremity Current Visit: Yes Status: Resolved (8) Sepsis Current Visit: Yes Status: Acute Qualifiers: Sepsis type: sepsis due to unspecified organism Qualified Code(s): A41.9 - Sepsis, unspecified organism (9) Hypertension Current Visit: No Status: Chronic Qualifiers: Hypertension type: essential hypertension Qualified Code(s): I10 - Essential (primary) hypertension - Constitutional Vitals: Temp Pulse Resp BP Pulse Ox 99 F 85 22 110/64 93 08/11/17 13:33 08/11/17 13:33 08/11/17 11:47 08/11/17 13:33 08/11/17 11:47 General appearance: Present: A&O X 3, morbidly obese, answers questions appropriately Internal Medicine: Result - Labs CBC & Chem 7: 08/11/17 04:59 08/11/17 04:59 Labs: Short CBC 08/11/17 Range/Units 04:59 WBC 10.7 (4.3-11.1) K/mcL Hgb 10.6 L (11.5-15.4) g/dL Hct 34.8 L (35.3-44.9) % Plt Count 213 (140-400) K/mcL BMP 08/11/17 04:59 Sodium 143 Potassium 3.5 Chloride 100 Carbon Dioxide 33 H BUN 12 Creatinine 0.83 Glucose 136 H Calcium 9.2 - ABG Interpretation ABG results: ABG ABG pH 7.32 pH Units (7.32-7.45) 08/10/17 04:43 ABG pCO2 74 mmHg (35-45) H* 08/10/17 04:43 ABG pO2 124 mmHg (85-104) H 08/10/17 04:43 ABG O2 Saturation 98 % (95-98) 08/10/17 04:43 PT/INR, D-dimer PT 13.6 Seconds (9.4-12.1) H 08/04/17 18:21 Consult Discharge Plan - Plan Referrals: Nomi Valle MD [Primary Care Provider] - 08/18/17 9:15 am ()
[2017-08-11 15:56] VITALS: BP 127/75
--- NOTE | 2017-08-11 16:20 | Discharge Summary ---
<Tien Garcia Leonardo - Last Filed: 08/11/17 16:50> Date of Encounter: 08/11/17 Time of Encounter: 13:05 - Discharge Diagnosis (1) Acute on chronic respiratory failure with hypoxia Priority: Primary Status: Acute (2) HCAP (healthcare-associated pneumonia) Priority: Primary Status: Acute (3) RAMO (obstructive sleep apnea) Priority: Secondary Status: Chronic (4) Morbid obesity with BMI of 50.0-59.9, adult Priority: Secondary Status: Acute (5) DVT prophylaxis Priority: Secondary Status: Acute (6) Diabetes Priority: Secondary Status: Chronic Qualifiers: Diabetes mellitus type: type 2 Diabetes mellitus complication status: with hyperglycemia Diabetes mellitus fdc insulin use: without termination clerk use Qualified Code(s): E11.65 - Type 2 diabetes mellitus with hyperglycemia (7) Murmur, cardiac Priority: Secondary Status: Chronic (8) Acute superficial venous thrombosis of left lower extremity Priority: Secondary Status: Resolved (9) Sepsis Priority: Secondary Status: Acute Qualifiers: Sepsis type: sepsis due to unspecified organism Qualified Code(s): A41.9 - Sepsis, unspecified organism (10) Hypertension Priority: Secondary Status: Chronic Qualifiers: Hypertension type: essential hypertension Qualified Code(s): I10 - Essential (primary) hypertension - Discharge Medications Prescriptions: levoFLOXacin [Levaquin] 750 mg PO DAILY 3 Days #3 tablet Home Medications: Albuterol Sulfate [Proair Respiclick] 2 puff IH Q4H PRN 06/21/16 [History] Aspirin [Lo-Dose Aspirin EC] 81 mg PO DAILY 06/21/16 [History] Atorvastatin Calcium [Lipitor] 20 mg PO DAILY 06/21/16 [History] Fluticasone/Salmeterol [Advair 250-50 Diskus] 1 each IH BID 06/21/16 [History] Glimepiride [Amaryl] 4 mg PO BID 06/21/16 [History] Ipratropium/Albuterol Neb [Duoneb] 3 ml IH Q6HR PRN 06/21/16 [History] Nitroglycerin 0.4 mg SL Q5-6MIN PRN 06/21/16 [History] Pregabalin [Lyrica] 200 mg PO BID 06/21/16 [History] Metformin HCl [Metformin HCl ER] 1,000 mg PO BID 02/12/17 [History] Meloxicam [Mobic] 15 mg PO DAILY 07/22/17 [History] Polyethylene Glycol 3350 [MiraLAX] 17 gm PO DAILY 07/22/17 [History] Rizatriptan Benzoate [Maxalt Geographic Analyst] 10 mg PO ONCE PRN 07/22/17 [History] Topiramate [Topamax] 50 mg PO BID 07/22/17 [History] Atenolol [Tenormin] 50 mg PO DAILY #30 tablet 07/23/17 [Rx] Furosemide [Lasix] 20 mg PO DAILY #0 07/23/17 [Rx] Potassium Chloride 20 meq PO DAILY #15 tab.er.prt 07/23/17 [Rx] Insulin NPH Hum/Reg Insulin Hm [Novolin 70-30 100 Unit/ml Vial] 65 unit SQ QPM 08/04/17 [History] Insulin NPH Hum/Reg Insulin Hm [Novolin 70-30 100 Unit/ml Vial] 85 unit SQ QAM 08/04/17 [History] levoFLOXacin [Levaquin] 750 mg PO DAILY 3 Days #3 tablet 08/11/17 [Rx] Allergies/Adverse Reactions: 3 Allergy/AdvReac Type Severity Reaction Status Date / Time SLOAN Inhibitors AdvReac Cough Verified 08/04/17 19:33 enalapril AdvReac Cough Verified 08/04/17 19:33 Date of admission: 08/04/17 21:39 Primary care physician: Nomi Valle MD Consults: 08/05/17 01:29 Consult for Pharmacy Education [CONS] Routine Reason for Consult: Vancomycin dosing Call Completed: No 08/05/17 16:56 Consult to Nutrition [CONS] Routine Comment: Consulting Provider: NUTRITION Reason for Dietary Consult: MST Score 08/06/17 15:02 Consult to Pulmonology [CONS] Routine Consulting Provider: Pulm Crit Care & Sleep Mily Reason for Consult: Sepsis, HCAP, lethargy, respiratory acidosis Call Completed: Yes 08/08/17 09:09 Consult to Occupational Therapy [CONS] Routine Comment: Evaluate, develop and implement POC Reason for Consult: evaulate for discharge planning. Consult to Physical Therapy [CONS] Routine Comment: Evaluate, develop and implement POC Reason for Consult: evaulate for discharge planning. Discharging clinician: Tien Garcia Anticipated date of discharge: 08/11/17 - Patient Status Disposition: Home Health Service Condition: Fair Functional capacity at discharge: uses cane/walker Overall status at discharge: patient is progressing back to baseline - Discharge Instructions Instructions: Cellulitis (DC), Pneumonia (DC) Follow Up With: Nomi Valle MD [Primary Care Provider] - 08/18/17 9:15 am () Additional Instructions: Taking her medications as prescribed Wear oxygen continuously at 3 L Follow-up with her primary care provider next 3-5 days. Return to the emergency department for further evaluation if you have worsening shortness of breath, return if fevers chills or productive sputum. - Diet and Activity Activity: increase activity as tolerated, wear oxygen at all times Diet: diabetic diet, low fat, low cholesterol Interval History: Ms. Bowers is a very pleasant 61 year old female with a past medical history of morbid obesity, HTN, HLD, chronic respiratory failure with 3L O2 at home, RAMO requiring CPAP, T2DM and superficial leg venous thrombosis who present to the [facility] Emergency Department with a chief complaint of shortness of breath.She was recently admitted here at [facility] and discharged on 07/23/17 due to hypokalemia, chronic respiratory failure and superficial left venous thrombosis workup. On arrival, her temperature 102.2, P 95, RR 24, O2 80 %, WBC 14.7, kidney function normal and BNP 171. She was given tyelonol, non- rebreather, duoneb, zosyn, vanc and levaquin. Nasopharyngeal swab neg for influenza. Sat ignacio to 90s after started on nonrebreather. She was admitted with healthcare associated pneumonia, sepsis with qualifications including temperature of 102.2, respiratory rate 24, WBC 14.7. Oxygen saturation improved and oxygen was weaned to 3 L nasal cannula. She also had symptoms of abdominal pain for which she received abdominal CT and right upper quadrant ultrasound showing no acute process. Lipase, kidney function and LFTs were all normal. 2 days after admission She gradually became more drowsy and lethargic, unable to answer questions. ABG was ordered and reviewed-pH 7.25, PCO2 69. CT chest showed bibasilar atelectasis versus pneumonia and patient has been on IV antibiotics. Pulmonology was consult who evaluated the patient and discussed the importance of wearing her BiPAP while sleeping due to her severe obstructive sleep apnea. Throat inpatient stay she had occasional low-grade fevers and continued on Levaquin and Zosyn and vancomycin which was discontinued. She clinically improved throughout her inpatient stay and was continued on Levaquin and Zosyn. Her BiPAP settings were evaluated and adjusted and sent to her outpatient CPAP/BiPAP facility. She was seen and evaluated on 08/11/2017 and deemed stable for discharge home with completion of antibiotic coverage with oral Levaquin 750 mg once a day for 3 days to give her a total of 10 day antibiotic coverage. Have close follow-up with her primary care provider as discussed with the patient. She is also recommended to be compliant with her antibiotics and BiPAP. Hospital course: Ms. Bowers is a 61 year old female - Time Spent with Patient Total time spent providing and/or coordinating discharge services: - Constitutional Vitals: Temp Pulse Resp BP Pulse Ox 98.9 F 80 20 127/75 92 08/11/17 15:52 08/11/17 15:52 08/11/17 15:52 08/11/17 15:52 08/11/17 15:52 General appearance: Present: A&O X 3, morbidly obese, answers questions appropriately Exam: General: Patient alert, awake, oriented 3, interactive, in no acute distress HEENT: Normocephalic, atraumatic, pupils equal reactive to light, oral mucosa moist, neck supple trachea midline no palpable lymphadenopathy, no thyromegaly. Chest: Symmetric bilateral correlating with respiratory effort, effort nonlabored. Cardiac: Regular rate and rhythm, grade 2/6 systolic ejection murmur Radial pulses 2+ bilateral, posterior tibial and dorsal pedal pulses 2+ bilateral. Respiratory: Clear to auscultation all lung cristina Abdomen: Soft, nontender, positive bowel sounds, no palpable masses appreciated on examination Extremities: Symmetric bilateral, patient has 2+ pitting edema bilateral lower extremities, chronic venous stasis changes. Neurologic: No focal deficits appreciated on examination. Face symmetric <Lex Maciasmarktrinh - Last Filed: 08/11/17 17:26> Date of Encounter: 08/11/17 Date of admission: 08/04/17 21:39 Primary care physician: Nomi Valle MD Consults: 08/05/17 01:29 Consult for Pharmacy Education [CONS] Routine Reason for Consult: Vancomycin dosing Call Completed: No 08/05/17 16:56 Consult to Nutrition [CONS] Routine Comment: Consulting Provider: NUTRITION Reason for Dietary Consult: MST Score 08/06/17 15:02 Consult to Pulmonology [CONS] Routine Consulting Provider: Pulm Crit Care & Sleep Mily Reason for Consult: Sepsis, HCAP, lethargy, respiratory acidosis Call Completed: Yes 08/08/17 09:09 Consult to Occupational Therapy [CONS] Routine Comment: Evaluate, develop and implement POC Reason for Consult: evaulate for discharge planning. Consult to Physical Therapy [CONS] Routine Comment: Evaluate, develop and implement POC Reason for Consult: evaulate for discharge planning. Hospital course: Ms. Bowers is a 61 year old female - Time Spent with Patient Total time spent providing and/or coordinating discharge services: - Constitutional Vitals: Temp Pulse Resp BP Pulse Ox 98.9 F 80 16 127/75 90 08/11/17 15:52 08/11/17 15:52 08/11/17 16:10 08/11/17 15:52 08/11/17 16:10 - Attending Attestation I examined this patient and my medical decision-making was reviewed with the Resident Physician. I agree with the documented findings, disposition and treatment plan as described except to the extent set forth below.
--- NOTE | 2017-08-11 16:32 | Physician Discharge Referral ---
<Tien Garcia - Last Filed: 08/11/17 16:30> Home Health/Hosp Referral Info Transfer to: Home Health Provider in Charge Post Discharge: PCP - Diagnosis (1) Acute on chronic respiratory failure with hypoxia Priority: Primary Status: Acute (2) HCAP (healthcare-associated pneumonia) Priority: Primary Status: Acute (3) RAMO (obstructive sleep apnea) Priority: Primary Status: Chronic (4) Morbid obesity with BMI of 50.0-59.9, adult Priority: Secondary Status: Acute (5) DVT prophylaxis Priority: Secondary Status: Acute (6) Diabetes Priority: Secondary Status: Chronic (7) Murmur, cardiac Priority: Secondary Status: Chronic (8) Acute superficial venous thrombosis of left lower extremity Priority: Secondary Status: Resolved (9) Sepsis Priority: Secondary Status: Acute (10) Hypertension Priority: Secondary Status: Chronic - Respiratory Orders Smoking Cessation: Smoking cessation has been advised. For more information, call the [employer] Quit Line at 7-483-BHDG-NOW. - Diet/Nutrition Diet/Nutrition: List: diabetic/cardiac - Activity Activity Orders: Ambulate, Walker - Services Needed Following services are medically necessary services: Home Health Aide, Physical Therapy, Occupational Therapy - Transfer Medications Prescriptions: levoFLOXacin [Levaquin] 750 mg PO DAILY 3 Days #3 tablet Home Medications: Albuterol Sulfate [Proair Respiclick] 2 puff IH Q4H PRN 06/21/16 [History] Aspirin [Lo-Dose Aspirin EC] 81 mg PO DAILY 06/21/16 [History] Atorvastatin Calcium [Lipitor] 20 mg PO DAILY 06/21/16 [History] Fluticasone/Salmeterol [Advair 250-50 Diskus] 1 each IH BID 06/21/16 [History] Glimepiride [Amaryl] 4 mg PO BID 06/21/16 [History] Ipratropium/Albuterol Neb [Duoneb] 3 ml IH Q6HR PRN 06/21/16 [History] Nitroglycerin 0.4 mg SL Q5-6MIN PRN 06/21/16 [History] Pregabalin [Lyrica] 200 mg PO BID 06/21/16 [History] Metformin HCl [Metformin HCl ER] 1,000 mg PO BID 02/12/17 [History] Meloxicam [Mobic] 15 mg PO DAILY 07/22/17 [History] Polyethylene Glycol 3350 [MiraLAX] 17 gm PO DAILY 07/22/17 [History] Rizatriptan Benzoate [Maxalt Pairer Odds] 10 mg PO ONCE PRN 07/22/17 [History] Topiramate [Topamax] 50 mg PO BID 07/22/17 [History] Atenolol [Tenormin] 50 mg PO DAILY #30 tablet 07/23/17 [Rx] Furosemide [Lasix] 20 mg PO DAILY #0 07/23/17 [Rx] Potassium Chloride 20 meq PO DAILY #15 tab.er.prt 07/23/17 [Rx] Insulin NPH Hum/Reg Insulin Hm [Novolin 70-30 100 Unit/ml Vial] 65 unit SQ QPM 08/04/17 [History] Insulin NPH Hum/Reg Insulin Hm [Novolin 70-30 100 Unit/ml Vial] 85 unit SQ QAM 08/04/17 [History] levoFLOXacin [Levaquin] 750 mg PO DAILY 3 Days #3 tablet 08/11/17 [Rx] Allergies/Adverse Reactions: 3 Allergy/AdvReac Type Severity Reaction Status Date / Time SLOAN Inhibitors AdvReac Cough Verified 08/04/17 19:33 enalapril AdvReac Cough Verified 08/04/17 19:33 Certification: Further, I certify that my clinical findings support that this patient is homebound (i.e. absences from home require considerable and taxing effort and are for medical reasons or mandaeism services or infrequently or short duration when for other reasons) because: Homebound Reason: Patient requires assistance of a person or device to safely leave home, Leaving home requires considerable and taxing effort due to condition, Severity of cardiac or pulmonary status limits activity tolerance Attestation: My signature below is to certify that this patient is under my care and that I, or nurse practitioner, or a physician's geriatric nurse assistant working with me, has a face-to -face encounter with this patient. <Tracey Macias - Last Filed: 08/11/17 17:25> - Respiratory Orders Smoking Cessation: Smoking cessation has been advised. For more information, call the [place] [employer] Quit Line at 4-147-FWVA-NOW. Certification: Further, I certify that my clinical findings support that this patient is homebound (i.e. absences from home require considerable and taxing effort and are for medical reasons or mandaeism services or infrequently or short duration when for other reasons) because: Attestation: My signature below is to certify that this patient is under my care and that I, or nurse practitioner, or a physician's geriatric nurse assistant working with me, has a face-to -face encounter with this patient.
== END 2017-08-11 18:20 | disposition home health service (06) | DRG 871 ==
LOC: EMEROO 17:20 → 2ANU 17:20 → SUATTDRO 21:39 → 2ANU 21:47 → 2NNU 08-06 20:20
PROVIDERS: ADMIT Internal Medicine; ATTEND Internal Medicine

== ENCOUNTER 2017-08-19 15:44 | Inpatient (IN) ==
[2017-08-19] MEDS ORDERED: *HR* Dextrose 50 % in Water (Syg) 50 ML SYRINGE ONE (21:04)
--- NOTE | 2017-08-19 21:12 | Internal Med History&Physical ---
<Mackenzie Morgan - Last Filed: 08/19/17 23:15> Date of Encounter: 08/19/17 Time of Encounter: 21:06 Assessment and Plan (1) Hypoglycemia Current visit: No Status: Acute Most likely secondary to poor diabetes compliance by the patient. Patient had glucose of 24 at home. Took 85units insulin in the morning and did not eat all day. She reports she has not checked her glucose in about 4 days. Family reports at about 10am she became confused on and off during the day. She has Novolin 70-30 injecting 85units qam and 65units qHS. Also on med list but not confirmed is glimiperide and metformin. hold home insulin glucose checks q2H glucose prn hypoglycemia diabetes education Lispro ACHS Hgb A1C ordered (2) Acute on chronic respiratory failure with hypoxia Current visit: No Status: Acute Oxygen saturation of 70% documented at [facility]. ABG results showing respiratory acidosis with compensation: ph 7.22 CO2 78 HCO3 32 Patient requires 3L oxygen all day and Bipap at night. She was recently here for pneumonia and was advised to use a full mouth piece for bipap instead of the nose piece, however patient refuses. Most likely acute on chronic respiratory failure with hypoxia due to multifactorial from not using full mouth piece on bipap for COPD and from decreased respirations from hypoglycemia. Patient has COPD. non smoker but second hand. Now 92% on 3L oxygen vitals stable duonebs supplelmental oxygen bipap incentive spirometry 20x /day home inhalers (3) Acute on chronic diastolic CHF (congestive heart failure) Current visit: Yes Status: Acute Patient has shortness of breathe with Rales bilaterally and 2+ pitting edema on physical exam. CXR showed cardiomegaly with early pulmonary interstitial edema worse from prior imaging. Echo 02/12/2017 showed LVEF 65% with mild diastolic dysfunction She admitted shortness of breathe, orthopnea, paroxysmal nocturnal dyspnea, leg edema IV lasix 40BID fluid restriction 1800cc no salt diet strict I/O monitor creatinine and electrolytes (4) Leucocytosis Current visit: No Status: Chronic Unknown etiology of elevated WBC 26.2 No obvious signs of infection. Recently treated for pneumonia and finished home antibiotics Urinalysis negative CXR did not show pneumonia only early pulmonary interstitial edema blood cultures ordered No antibiotics at this time Qualifiers: Leukocytosis type: unspecified Qualified Code(s): D72.829 - Elevated white blood cell count, unspecified (5) T2DM (type 2 diabetes mellitus) Current visit: No Status: Chronic diabetes taking insulin holding home insulin due to hypoglycemia lispro ACHS glucose checks q2h Qualifiers: Diabetes mellitus complication status: with circulatory complication Diabetes mellitus complication detail: with other circulatory complications Diabetes mellitus termite treater helper insulin use: with detention use Qualified Code(s) : E11.59 - Type 2 diabetes mellitus with other circulatory complications; Z79.4 - assisted (current) use of insulin; Z79.4 - assisted (current) use of insulin ; Z79.4 - assisted (current) use of insulin; Z79.4 - intermediate manager (current) use of insulin (6) RAMO (obstructive sleep apnea) Current visit: No Status: Chronic bipap at night (7) Morbid obesity with BMI of 50.0-59.9, adult Current visit: No Status: Acute diabetic and low salt diet (8) DVT prophylaxis Current visit: No Status: Acute heparin sq Internal Medicine - H&P: HPI Chief complaint: hypoglycemia Admitted From: Hospital to Hospital Transfer Plans for Post Hospital Care: Home History of present illness: Ms. Bowers is a 61 year old female with a past medical history of hypertension , CHF, CPD, diabetes, Gerd who presented to [facility] by EMS after she had slid off her bed. She was then transferred to [facility]. The patient is alongside her and family friend. Patient reported that she took her 85 units of insulin in the morning and had not eaten all day. At about 10 AM her stated that she started became confused and then laid down for a nap, after which she woke up and requested his assistance to go to the bathroom. She had difficulty getting up and slid down the side of the bed easily with the assistance of her without hitting her head. He then called EMS because he could not get her up. EMS recorded glucose 24 and oxygen 74%. Family stated that she had been confused on and off all day and for the past 2 days she has been sleeping all day. She admitted shortness of breathe, orthopnea, paroxysmal nocturnal dyspnea, leg edema, chills, confusion. Denied fever, syncope, headache, chest pain, palpitations, wheezing, coughing, abdominal pain, nausea, vomiting, dysuria, hematuria, diarrhea. She was recently admitted on 08/04/2017 for pneumonia and diagnosed with CHF, she finished the levaquin. She is on BiPAP at night and 3 L of continuous oxygen. At [facility] Oxygen saturation of 70% and glucose 69 documented. ABG results showing respiratory acidosis with compensation: ph 7.22 CO2 78 HCO3 32. CXR showed cardiomegaly with early pulmonary interstitial edema worse from prior imaging. Past Med Surg Social Fam HX - Past Medical History Medical history: asthma, cardiomyopathy, diabetes, hypertension, other Psychiatric history: no psych history - Past Surgical History Surgical History: other - Social History Smoking Status: Never smoker Smokeless Tobacco Status: No Alcohol use: none Drug use: none - Family History Mother Living Status: Still Living Hx Family Cardiac Disorders: Yes (Stents, Heart Attack, Pacer) Hx Family Respiratory Disorders: No (COPD) Hx Family Cancer: Yes (Endometrial Cancer) Hx Family GI Disorders: Yes (GERD) Hx Family Endocrine Disorder: No Hx Family Neuromuscular Disorders: No Hx Family Neurologic Disorders: No Hx Family HEENT Disorders: No Hx Family Autoimmune Disorders: No Father Living Status: Still Living Hx Family Cardiac Disorders: Yes (CHF, Heart Attack, HTN) Hx Family Respiratory Disorders: Yes (COPD, Asthma, Emphasema) Hx Family Cancer: No Hx Family GI Disorders: No Hx Family Endocrine Disorder: Yes (DM) Hx Family Neuromuscular Disorders: No Hx Family Neurologic Disorders: No Hx Family HEENT Disorders: No Hx Family Autoimmune Disorders: No Internal Medicine - H&P: Meds Albuterol Sulfate [Proair Respiclick] 2 puff IH Q4H PRN 06/21/16 [History] Aspirin [Lo-Dose Aspirin EC] 81 mg PO DAILY 06/21/16 [History] Atorvastatin Calcium [Lipitor] 20 mg PO DAILY 06/21/16 [History] Fluticasone/Salmeterol [Advair 250-50 Diskus] 1 each IH BID 06/21/16 [History] Glimepiride [Amaryl] 4 mg PO BID 06/21/16 [History] Ipratropium/Albuterol Neb [Duoneb] 3 ml IH Q6HR PRN 06/21/16 [History] Nitroglycerin 0.4 mg SL Q5-6MIN PRN 06/21/16 [History] Pregabalin [Lyrica] 200 mg PO BID 06/21/16 [History] Metformin HCl [Metformin HCl ER] 1,000 mg PO BID 02/12/17 [History] Meloxicam [Mobic] 15 mg PO DAILY 07/22/17 [History] Polyethylene Glycol 3350 [MiraLAX] 17 gm PO DAILY 07/22/17 [History] Rizatriptan Benzoate [Maxalt Armed Security Officer] 10 mg PO ONCE PRN 07/22/17 [History] Topiramate [Topamax] 50 mg PO BID 07/22/17 [History] Atenolol [Tenormin] 50 mg PO DAILY #30 tablet 07/23/17 [Rx] Potassium Chloride 20 meq PO DAILY #15 tab.er.prt 07/23/17 [Rx] Insulin NPH Hum/Reg Insulin Hm [Novolin 70-30 100 Unit/ml Vial] 65 unit SQ QPM 08/04/17 [History] Insulin NPH Hum/Reg Insulin Hm [Novolin 70-30 100 Unit/ml Vial] 85 unit SQ QAM 08/04/17 [History] levoFLOXacin [Levaquin] 750 mg PO DAILY 3 Days #3 tablet 08/11/17 [Rx] Furosemide [Lasix] 40 mg PO DAILY 08/20/17 [History] 3 Allergy/AdvReac Type Severity Reaction Status Date / Time SLOAN Inhibitors AdvReac Cough Verified 08/04/17 19:33 enalapril AdvReac Cough Verified 08/04/17 19:33 All Systems PM: A 10-system review of systems was performed and is negative for pertinent findings except as documented above in the HPI. - Constitutional Vitals: Pulse Resp BP Pulse Ox 90 20 121/56 92 08/19/17 20:38 08/19/17 20:38 08/19/17 20:38 08/19/17 20:38 <Garett Ferrell - Last Filed: 08/20/17 00:41> Date of Encounter: 08/20/17 Internal Medicine - H&P: HPI History of present illness: Ms. Bowers is a 61 year old female All Systems PM: A 10-system review of systems was performed and is negative for pertinent findings except as documented above in the HPI. - Constitutional Vitals: Pulse Resp BP Pulse Ox 90 14 121/56 96 08/19/17 20:38 08/19/17 23:56 08/19/17 20:38 08/19/17 23:56 - Attending Attestation I examined this patient and my medical decision-making was reviewed with the Resident Physician. I agree with the documented findings, disposition and treatment plan as described except to the extent set forth below. Patient seen 08/19/17, 11 PM Patient recently admitted in Nov for PNA/sepsis. Presented with confusion, found hypoglycemia and hypercapnia (likely acute on chronic hypercapnia, labs - bicarb with some metabolic compensation). Has been taking insulin but with decreased PO intake. Her IDDMI is being followed by Dr Vlale. Symptoms not improved with time and worsening at home leading to ED visit. ROS 14 point review of systems reviewed as best as possible given presentation. Pertinent positive or negative as per HPI or otherwise reviewed as negative General - AAO x 3 Psych - Appropriate affect/speech. No agitation Eyes - RHYS. Eye lids intact. No scleral icterus Neuro - No gross peripheral or central neuro deficits with intact CN 2-12 exam Heart - Sinus. RRR. S1 and S2 present. No added HS/murmurs appreciated. No elevated JVD appreciated. Lung - Adequate air entry b/l, No crackles/wheezes appreciated GI - Soft, non-tender. No hepatosplenomegaly/ascites. BS+ - No CVA/suprapubic tenderness or palpable bladder distension Skin - Intact. No rash/petechiae/ecchymosis. Warm extremities MSK - Joints with normal ROM. No joint swellings Hypoglycemia - likely due to too much insulin and decreased PO intake - hold home insulin - ISS moderate dose for now and estimate accordingly - since patient is alert, will check CBG and treat with PO food when BP low or IV glucose depending on circumstance Acute on chronic CHF - IV lasix, I/Os, fluid restrict, low salt diet - last TTE EF 65%, mild diastolic dyfn Hypercapnia - likely acute on chronic - may be related to confusion trigger hypercapnia in setting of RAMO/OHS - continue evening bipap Hx of COPD Hx of obesity and RAMO - baseline Bipap in the evening Left knee pain - check XR - follow clinical course
[2017-08-19] MEDS ORDERED: Naloxone 0.4 MG/ML INJ IVP PRN (21:13)
[2017-08-19] MEDS ORDERED: *HR* Dextrose 50 % in Water (Syg) 50 ML SYRINGE IVP ONE (21:23)
[2017-08-19] MEDS ORDERED: Ibuprofen 600 MG TABLET PO ONE (21:36)
[2017-08-19] MEDS ORDERED: Dextrose Gel 15 GM PO PRN (21:55)
[2017-08-19 23:02] LABS: Hemoglobin A1C 7.9 %
[2017-08-19] MEDS: *HR* Heparin 5,000 UNIT/ML VIAL SQ SCH (23:12)
[2017-08-19] MEDS: Furosemide 40 MG/4 ML VIAL IVP SCH (23:12)
[2017-08-19] MEDS: traMADol 50 MG TABLET PO PRN (23:13)
[2017-08-19] MEDS: Ipratropium/Albuterol Neb 3 ML IH SCH (23:53)
[2017-08-20] MEDS: *HR* Morphine 2 MG/ML SYRINGE IVP PRN ×2 (00:21→06:51)
[2017-08-20 03:41] LABS: Basophils # 0.1 K/mcL (0.0-0.2); Basophils % 0.6 %; Eosinophils # 0.5 K/mcL (0.0-0.6); Eosinophils % 3.3 %; Hematocrit 33.7 % (35.3-44.9); Hemoglobin 10.3 g/dL (11.5-15.4); Immature Granulocytes % 0.8 % (0-4); Lymphocytes % 20.2 %; Mean Corpuscular HGB Conc 30.6 g/dL (31.6-35.5); Mean Corpuscular Hemoglobin 30.1 pg (28.0-33.3); Mean Corpuscular Volume 98.5 fL (83.0-100.0); Mean Platelet Volume 10.6 fL (9.4-12.4); Monocytes % 6.6 %; Nucleated Red Blood Cells 0.3 /100 WBC (0); Platelet Count 212 K/mcL (140-400); Red Blood Count 3.42 M/mcL (3.82-4.97); Red Cell Distribution Width 15.7 % (11.5-14.5); Segmented Neutrophils % 68.5 %
[2017-08-20 03:54] LABS: BUN/Creatinine Ratio 12 (6-26); Blood Urea Nitrogen 9 mg/dL (7-20); Calcium 8.6 mg/dL (8.6-10.8); Carbon Dioxide 32 mEq/L (19-29); Chloride 102 mEq/L (98-109); Glucose 60 mg/dL (70-99); Osmolality,Calculated 291 (280-300); Potassium 3.2 mEq/L (3.5-4.5); Sodium 142 mEq/L (136-145); eGFR For African Americans > 60 (> 60); eGFR For Non-African Americans > 60 (> 60)
[2017-08-20] MEDS: *HR* Heparin 5,000 UNIT/ML VIAL SQ SCH ×3 (04:16→22:01)
[2017-08-20] MEDS: traMADol 50 MG TABLET PO PRN (04:16)
[2017-08-20] MEDS: Ipratropium/Albuterol Neb 3 ML IH SCH ×5 (04:45→20:21)
[2017-08-20] MEDS ORDERED: Insulin LISPRO 300 UNITS/3 ML VIAL SQ SCH ×4 (08:00→21:00)
[2017-08-20] MEDS: Furosemide 40 MG/4 ML VIAL IVP SCH ×2 (09:39→16:32)
[2017-08-20] MEDS: Aspirin Enteric Coated 81 MG Tablet PO SCH (09:39)
[2017-08-20] MEDS: Budesonide/Formoterol 80/4.5 MDI IH SCH ×2 (11:27→20:20)
--- NOTE | 2017-08-20 15:10 | Internal Med Progress Note ---
Date of Encounter: 08/20/17 Time of Encounter: 12:00 - Assessment and plan (1) Hypoglycemia Current Visit: Yes Status: Acute Assessment and plan: Blood sugar 60 this morning. Improving since then. We will continue to monitor closely. Hold insulin products for now. As her blood sugars improve, will put her on low correctional sliding scale. A1c was 7.9 which is improved from 9.1 last month. The patient seems to be responding well to her current insulin regimen but it may be too much for her and she may be having undiagnosed episodes of hypoglycemia at home. (2) Acute on chronic diastolic CHF (congestive heart failure) Current Visit: Yes Status: Acute Assessment and plan: Responded well to diuretics. So far has had it a 1.5 L fluid balance. Continue Lasix. Will transition to oral Lasix tomorrow. (3) Acute on chronic respiratory failure with hypoxia Current Visit: Yes Status: Acute Assessment and plan: With hypoxia and hypercapnia. Due to hypoglycemia and central depression. Will repeat ABG. Continue O2 supplementation. BiPAP use when lying down. (4) Leucocytosis Current Visit: Yes Status: Chronic Assessment and plan: Improving. No clear signs of infection at this time. No indication for antibiotics. Qualifiers: Leukocytosis type: unspecified Qualified Code(s): D72.829 - Elevated white blood cell count, unspecified (5) Morbid obesity with BMI of 50.0-59.9, adult Current Visit: Yes Status: Acute (6) RAMO (obstructive sleep apnea) Current Visit: Yes Status: Chronic Assessment and plan: Continue BiPAP use when lying down (7) T2DM (type 2 diabetes mellitus) Current Visit: Yes Status: Acute Assessment and plan: Improved. Patient is awake and alert and answering questions well. Blood sugars are also improving. We will continue to monitor closely Qualifiers: Diabetes mellitus complication status: with hypoglycemia Diabetes mellitus complication detail: with coma Diabetes mellitus long-term insulin use: with long-term use Qualified Code(s): E11.641 - Type 2 diabetes mellitus with hypoglycemia with coma; Z79.4 - custodial (current) use of insulin; Z79.4 - custodial (current) use of insulin; Z79.4 - custodial (current) use of insulin; Z79.4 - dedicated intermodal truck driver (current) use of insulin (8) DVT prophylaxis Current Visit: Yes Status: Acute Assessment and plan: Subcutaneous heparin (9) Left knee pain Current Visit: Yes Status: Acute Assessment and plan: From a fall. X-ray of the left knee did not show any fracture. There is partial suprapatellar joint effusion. Could be related to osteoarthritis. Recommend outpatient follow-up. We will also consult physical therapy for evaluation. Qualifiers: Chronicity: acute Qualified Code(s): M25.562 - Pain in left knee - Subjective Interval history: Patient is lying in bed. Using BiPAP. Complaints of generalized body aches related to her fall. Shortness of breath is improving. No other new complaints at this time. - Constitutional Vitals: Temp Pulse Resp BP Pulse Ox 98.5 F 84 16 141/65 97 08/20/17 11:39 08/20/17 11:39 08/20/17 11:39 08/20/17 11:39 08/20/17 11:39 General appearance: Present: cooperative, A&O X 3, morbidly obese, answers questions appropriately - Neck Neck exam general surgery: Present: supple, trachea midline. Absent: lymphadenopathy - Respiratory Respiratory exam: Present: decreased breath sounds (At both bases). Absent: accessory muscle use, rales, rhonchi, wheezes - Cardiovascular Cardiovascular exam: Present: RRR, +S1, +S2. Absent: diastolic murmur, gallop, rubs, systolic murmur - GI/Abdominal GI/Abdominal exam: Present: normal bowel sounds, soft, no peritoneal signs. Absent: distended, tenderness - Extremities Exam Extremities exam: Present: warm, radial pulses palpable and symmetrical. Absent : calf tenderness, cyanotic, pedal edema - Neurological Exam Neurological exam: Present: alert, oriented X3, no focal deficits. Absent: facial droop, speech deficit Internal Medicine: Result - Labs CBC & Chem 7: 08/20/17 03:33 08/20/17 03:33 Labs: Short CBC 08/20/17 Range/Units 03:33 WBC 14.6 H (4.3-11.1) K/mcL Hgb 10.3 L D (11.5-15.4) g/dL Hct 33.7 L (35.3-44.9) % Plt Count 212 (140-400) K/mcL Neutrophils # 10.0 H (1.6-8.9) K/mcL BMP 08/20/17 03:33 Sodium 142 Potassium 3.2 L Chloride 102 Carbon Dioxide 32 H BUN 9 Creatinine 0.77 Glucose 60 L Calcium 8.6 Consult Discharge Plan - Plan Referrals: Nomi Valle MD [Primary Care Provider] -
[2017-08-20] MEDS ORDERED: D5% in Water 1,000 ML IVC PRN (15:49)
[2017-08-20] MEDS ORDERED: Dextrose Gel 15 GM PO PRN (15:49)
[2017-08-20] MEDS ORDERED: *HR* Dextrose 50 % in Water (Syg) 50 ML SYRINGE IVP PRN (15:49)
[2017-08-20 16:22] LABS: ABG Base Excess 9 mEq/L (-2 to 3); ABG HCO3 38 mEq/L (21-27); ABG Oxygen Saturation 85 % (95-98); ABG PCO2 81 mmHg (35-45); ABG PH 7.29 pH Units (7.32-7.45); ABG PO2 59 mmHg (85-104); ABG TCO2 41 mEq/L (20-26)
[2017-08-20] MEDS: Insulin LISPRO 300 UNITS/3 ML VIAL SQ SCH (17:41)
[2017-08-20] MEDS: Ibuprofen 600 MG TABLET PO PRN (17:43)
[2017-08-21] MEDS: Ipratropium/Albuterol Neb 3 ML IH SCH ×4 (00:19→11:32)
[2017-08-21] MEDS ORDERED: *HR* LORazepam 2 MG/ML VIAL IVP PRN (01:13)
[2017-08-21] MEDS: Nystatin POWDER 30 GM BOTTLE TP SCH ×2 (01:28→12:22)
[2017-08-21] MEDS: Ibuprofen 600 MG TABLET PO PRN (04:18)
[2017-08-21] MEDS: *HR* Heparin 5,000 UNIT/ML VIAL SQ SCH (06:33)
[2017-08-21 06:52] VITALS: BP 136/69
[2017-08-21 06:57] LABS: BUN/Creatinine Ratio 14 (6-26); Blood Urea Nitrogen 11 mg/dL (7-20); Calcium 9.1 mg/dL (8.6-10.8); Carbon Dioxide 32 mEq/L (19-29); Chloride 99 mEq/L (98-109); Glucose 222 mg/dL (70-99); Osmolality,Calculated 300 (280-300); Potassium 3.4 mEq/L (3.5-4.5); Sodium 142 mEq/L (136-145); eGFR For African Americans > 60 (> 60); eGFR For Non-African Americans > 60 (> 60)
[2017-08-21 07:00] LABS: Basophils # 0.1 K/mcL (0.0-0.2); Basophils % 0.7 %; Eosinophils # 0.4 K/mcL (0.0-0.6); Hemoglobin 10.9 g/dL (11.5-15.4); Immature Granulocytes % 0.9 % (0-4); Lymphocytes # 2.2 K/mcL (0.6-4.6); Lymphocytes % 20.5 %; Mean Corpuscular HGB Conc 30.3 g/dL (31.6-35.5); Mean Corpuscular Hemoglobin 29.5 pg (28.0-33.3); Mean Corpuscular Volume 97.6 fL (83.0-100.0); Mean Platelet Volume 10.8 fL (9.4-12.4); Monocytes # 0.7 K/mcL (0.0-1.3); Monocytes % 6.3 %; Neutrophils # 7.3 K/mcL (1.6-8.9); Nucleated Red Blood Cells 0.3 /100 WBC (0); Platelet Count 248 K/mcL (140-400); Red Blood Count 3.69 M/mcL (3.82-4.97); Red Cell Distribution Width 15.8 % (11.5-14.5); Segmented Neutrophils % 67.6 %
[2017-08-21] MEDS: Budesonide/Formoterol 80/4.5 MDI IH SCH (07:41)
[2017-08-21] MEDS: Aspirin Enteric Coated 81 MG Tablet PO SCH (08:24)
[2017-08-21] MEDS: Furosemide 40 MG/4 ML VIAL IVP SCH (08:24)
[2017-08-21] MEDS: Insulin LISPRO 300 UNITS/3 ML VIAL SQ SCH ×2 (08:25→12:25)
--- NOTE | 2017-08-21 10:26 | Discharge Summary ---
Date of Encounter: 08/21/17 Time of Encounter: 10:25 - Discharge Diagnosis (1) Acute respiratory failure with hypoxia and hypercapnia Priority: Primary Status: Acute (2) Hypoglycemia Priority: Secondary Status: Acute (3) Acute on chronic diastolic CHF (congestive heart failure) Priority: Secondary Status: Acute (4) Acute on chronic respiratory failure with hypoxia Priority: Secondary Status: Acute (5) Leucocytosis Priority: Secondary Status: Chronic Qualifiers: Leukocytosis type: unspecified Qualified Code(s): D72.829 - Elevated white blood cell count, unspecified (6) Morbid obesity with BMI of 50.0-59.9, adult Priority: Secondary Status: Acute (7) RAMO (obstructive sleep apnea) Priority: Secondary Status: Chronic (8) T2DM (type 2 diabetes mellitus) Priority: Secondary Status: Acute Qualifiers: Diabetes mellitus complication status: with hypoglycemia Diabetes mellitus complication detail: with coma Diabetes mellitus director long term care insulin use: with alf use Qualified Code(s): E11.641 - Type 2 diabetes mellitus with hypoglycemia with coma; Z79.4 - watermaster (current) use of insulin; Z79.4 - watermaster (current) use of insulin; Z79.4 - watermaster (current) use of insulin; Z79.4 - residential (current) use of insulin (9) DVT prophylaxis Priority: Secondary Status: Acute (10) Left knee pain Priority: Secondary Status: Acute Qualifiers: Chronicity: acute Qualified Code(s): M25.562 - Pain in left knee - Discharge Medications Prescriptions: Furosemide [Lasix] 40 mg PO BID #60 tablet Home Medications: Albuterol Sulfate [Proair Respiclick] 2 puff IH Q4H PRN 06/21/16 [History] Aspirin [Lo-Dose Aspirin EC] 81 mg PO DAILY 06/21/16 [History] Atorvastatin Calcium [Lipitor] 20 mg PO DAILY 06/21/16 [History] Fluticasone/Salmeterol [Advair 250-50 Diskus] 1 each IH BID 06/21/16 [History] Ipratropium/Albuterol Neb [Duoneb] 3 ml IH Q6HR PRN 06/21/16 [History] Nitroglycerin 0.4 mg SL Q5-6MIN PRN 06/21/16 [History] Pregabalin [Lyrica] 200 mg PO BID 06/21/16 [History] Metformin HCl [Metformin HCl ER] 1,000 mg PO BID 02/12/17 [History] Meloxicam [Mobic] 15 mg PO DAILY 07/22/17 [History] Rizatriptan Benzoate [Maxalt Housing Property Manager] 10 mg PO ONCE PRN 07/22/17 [History] Topiramate [Topamax] 50 mg PO BID 07/22/17 [History] Atenolol [Tenormin] 50 mg PO DAILY #30 tablet 07/23/17 [Rx] Potassium Chloride 20 meq PO DAILY #15 tab.er.prt 07/23/17 [Rx] Ranitidine HCl [Acid Packer] 150 mg PO HS 08/20/17 [History] Furosemide [Lasix] 40 mg PO BID #60 tablet 08/21/17 [Rx] Insulin NPH Hum/Reg Insulin Hm [Novolin 70-30 100 Unit/ml Vial] 55 unit SQ QAM # 0 08/21/17 [Rx] Insulin NPH Hum/Reg Insulin Hm [Novolin 70-30 100 Unit/ml Vial] 55 unit SQ QPM # 0 08/21/17 [Rx] Allergies/Adverse Reactions: 3 Allergy/AdvReac Type Severity Reaction Status Date / Time SLOAN Inhibitors AdvReac Cough Verified 08/04/17 19:33 enalapril AdvReac Cough Verified 08/04/17 19:33 Date of admission: 08/20/17 00:45 Primary care physician: Nomi Valle MD Consults: 08/19/17 21:54 Consult to Psychological Assistant [CONS] Routine Comment: Reason for Consult: poor diabetes compliance. hypoglycemia 08/19/17 22:54 Consult to Morning News Producer [CONS] Routine Reason for SW Consult: Patient wears oxygen at home and bipap, patient may need some type of homehealth 08/20/17 15:04 Consult to Occupational Therapy [CONS] Routine Comment: Evaluate, develop and implement POC Reason for Consult: Recent fall and bodyaches Consult to Physical Therapy [CONS] Routine Comment: Evaluate, develop and implement POC Reason for Consult: Recent fall and bodyaches Discharging clinician: Chepe Church Anticipated date of discharge: 08/21/17 - Patient Status Disposition: Home Health Service Condition: Good Functional capacity at discharge: uses cane/walker Overall status at discharge: patient is progressing back to baseline - Discharge Instructions Instructions: Heart Failure (DC), Acute Respiratory Distress Syndrome (DC) Follow Up With: Nomi Valle MD [Primary Care Provider] - 08/28/17 1:00 pm (in 1 week) Rosendo Noguera DO [Partnered Physician] - (in 1-2 wees for chf...CARDIOLOGY OFFICE WILL CALL YOU WITH APPOINTMENT DATE AND TIME) Additional Instructions: pcp requested Hold glimepiride to you see your doctor. Monitor blood sugars at least 3 times a day. Let your doctor know if your blood sugars are less than 90 or greater than 200. - Diet and Activity Activity: as per physical therapy, increase activity as tolerated Diet: diabetic diet, low salt diet, other (Fluid restriction to 1.8 L per 24 hrs ) Hospital course: Ms. Bowers is a 61 year old female with a history of diabetes, chronic respiratory failure, congestive heart failure, morbid obesity, obstructive sleep apnea who presented to the ER through EMS after she was found to be hypoglycemic with decreased mental status and a fall at home. Patient's blood sugars were recorded as low as 24 by EMS and her oxygen saturation was 74%. She was given glucose and was placed on BiPAP which she is normally on at night and while lying down. She was then admitted here for further management. She was diagnosed with acute hypoglycemia due to insulin use along with acute congestive heart failure and acute on chronic respiratory failure. Her insulin was held and blood sugars were closely followed. She was given intravenous Lasix and has had good response to that with almost -5 L fluid balance. She is now doing better and her ABG reflects this. Patient does have chronic respiratory acidosis with compensated metabolic alkalosis. Her blood sugars have now improved and patient has been placed back on insulin. Her insulin regimen had recently been changed by her primary care provider and she has had good response to it with the decreasing her A1c level from 9.1-7.9 within 1 month. However this could also be causing her to have hypoglycemic episodes especially when she does not eat as much as she normally does. She is been advised to watch her blood sugars closely. I will also scaled back on her insulin regimen and cut down her insulin 70/30 dosage to 55 units twice daily. I will also stop her Nipride for now until she sees her primary care provider. She is advised to closely monitor her blood sugars and let her primary care provider know if her blood sugars are less than 90 or greater than 200. Patient did have leukocytosis on presentation which is likely reactive and has since normalized. At this time, patient is doing well enough to be discharged home. She will follow up with her primary care provider for further management. I am also increasing her Lasix dosage to 40 mg twice daily. She will also be on a fluid restriction diet. She does have pain in her left knee due to her fall but x-rays done here did not show any fracture. She does have joint effusion and may have underlying osteoarthritis. This can be managed as outpatient. Given the patient's morbid obesity, and obstructive sleep apnea and underlying congestive heart failure, she would benefit from using a hospital bed that will keep the head of the bed to be elevated more than 30 degrees most of the time to help ameliorate her respiratory symptoms. - Time Spent with Patient Total time spent providing and/or coordinating discharge services: Greater than 30 minutes (40 min) - Constitutional Vitals: Temp Pulse Resp BP Pulse Ox 98.0 F 89 18 136/69 91 08/21/17 06:50 08/21/17 06:50 08/21/17 07:41 08/21/17 06:50 08/21/17 07:41 General appearance: Present: cooperative, A&O X 3, morbidly obese, answers questions appropriately - Respiratory Respiratory exam: Present: decreased breath sounds (at both bases). Absent: accessory muscle use, rales, rhonchi, wheezes - Cardiovascular Cardiovascular exam: Present: RRR, +S1, +S2. Absent: diastolic murmur, gallop, rubs, systolic murmur - GI/Abdominal GI/Abdominal exam: Present: normal bowel sounds, soft, no peritoneal signs. Absent: distended, tenderness - Extremities Exam Extremities exam: Present: pedal edema, warm, radial pulses palpable and symmetrical. Absent: calf tenderness, cyanotic - Neurological Exam Neurological exam: Present: alert, oriented X3, no focal deficits. Absent: facial droop, speech deficit
--- NOTE | 2017-08-21 10:34 | Physician Discharge Referral ---
Home Health/Hosp Referral Info Transfer to: Home Health Provider in Charge Post Discharge: PCP - Diagnosis (1) Acute respiratory failure with hypoxia and hypercapnia Priority: Primary Status: Acute (2) Hypoglycemia Priority: Secondary Status: Acute (3) Acute on chronic diastolic CHF (congestive heart failure) Priority: Secondary Status: Acute (4) Acute on chronic respiratory failure with hypoxia Priority: Secondary Status: Acute (5) Leucocytosis Priority: Secondary Status: Chronic (6) Morbid obesity with BMI of 50.0-59.9, adult Priority: Secondary Status: Acute (7) RAMO (obstructive sleep apnea) Priority: Secondary Status: Chronic (8) T2DM (type 2 diabetes mellitus) Status: Acute (9) DVT prophylaxis Priority: Secondary Status: Acute (10) Left knee pain Priority: Secondary Status: Acute - Respiratory Orders Oxygen / L per min (3) Smoking Cessation: Smoking cessation has been advised. For more information, call the [employer] Tobacco Quit Line at 3-780-SLXG-NOW. - Diet/Nutrition Diet/Nutrition Orders: Cardiac, No Concentrated Sweets (diabetic) - Activity Activity Orders: Walker - Services Needed Following services are medically necessary services: Nursing, Home Health Aide, Physical Therapy, Occupational Therapy Home Care Orders: Diabetes management - Transfer Medications Prescriptions: Furosemide [Lasix] 40 mg PO BID #60 tablet Home Medications: Albuterol Sulfate [Proair Respiclick] 2 puff IH Q4H PRN 06/21/16 [History] Aspirin [Lo-Dose Aspirin EC] 81 mg PO DAILY 06/21/16 [History] Atorvastatin Calcium [Lipitor] 20 mg PO DAILY 06/21/16 [History] Fluticasone/Salmeterol [Advair 250-50 Diskus] 1 each IH BID 06/21/16 [History] Ipratropium/Albuterol Neb [Duoneb] 3 ml IH Q6HR PRN 06/21/16 [History] Nitroglycerin 0.4 mg SL Q5-6MIN PRN 06/21/16 [History] Pregabalin [Lyrica] 200 mg PO BID 06/21/16 [History] Metformin HCl [Metformin HCl ER] 1,000 mg PO BID 02/12/17 [History] Meloxicam [Mobic] 15 mg PO DAILY 07/22/17 [History] Rizatriptan Benzoate [Maxalt Airplane Inspector] 10 mg PO ONCE PRN 07/22/17 [History] Topiramate [Topamax] 50 mg PO BID 07/22/17 [History] Atenolol [Tenormin] 50 mg PO DAILY #30 tablet 07/23/17 [Rx] Potassium Chloride 20 meq PO DAILY #15 tab.er.prt 07/23/17 [Rx] Ranitidine HCl [Acid Welt Maker] 150 mg PO HS 08/20/17 [History] Furosemide [Lasix] 40 mg PO BID #60 tablet 08/21/17 [Rx] Insulin NPH Hum/Reg Insulin Hm [Novolin 70-30 100 Unit/ml Vial] 55 unit SQ QAM # 0 08/21/17 [Rx] Insulin NPH Hum/Reg Insulin Hm [Novolin 70-30 100 Unit/ml Vial] 55 unit SQ QPM # 0 08/21/17 [Rx] Allergies/Adverse Reactions: 3 Allergy/AdvReac Type Severity Reaction Status Date / Time SLOAN Inhibitors AdvReac Cough Verified 08/04/17 19:33 enalapril AdvReac Cough Verified 08/04/17 19:33 Certification: Further, I certify that my clinical findings support that this patient is homebound (i.e. absences from home require considerable and taxing effort and are for medical reasons or [employer] or infrequently or short duration when for other reasons) because: Homebound Reason: Patient requires assistance of a person or device to safely leave home Attestation: My signature below is to certify that this patient is under my care and that I, or nurse practitioner, or a physician's business assistant working with me, has a face-to -face encounter with this patient.
[2017-08-21 10:47] LABS: ABG Base Excess 10 mEq/L (-2 to 3); ABG HCO3 37 mEq/L (21-27); ABG Oxygen Saturation 90 % (95-98); ABG PCO2 66 mmHg (35-45); ABG PH 7.36 pH Units (7.32-7.45); ABG PO2 62 mmHg (85-104); ABG TCO2 39 mEq/L (20-26)
== END 2017-08-21 15:19 | disposition home health service (06) | DRG 291 ==
LOC: 2NENU
PROVIDERS: ADMIT Internal Medicine Hematology & Oncology; ATTEND Internal Medicine

== ENCOUNTER 2021-02-25 13:29 | Inpatient (IN) ==
[2021-02-25] MEDS ORDERED: Isovue-370 500 ML BOTTLE IVP ONE (14:04)
[2021-02-25] MEDS ORDERED: 0.9 % Sodium Chloride 1,000 ML IVC ONE (14:06)
[2021-02-25] MEDS ORDERED: Piperacillin/Tazobactam 3.375 GM in Water for inj. (sterile) 20 ML IVP ONE (14:06)
[2021-02-25] MEDS ORDERED: Vancomycin 2,000 MG/520 ML IV.SOLN IVPB ONE (14:06)
[2021-02-25] MEDS ORDERED: Ringers Solution, Lactated 1,000 ML IVC ONE (14:06)
[2021-02-25 14:28] LABS: Basophils # 0.1 K/mcL (0.0-0.2); Basophils % 0.4 %; Eosinophils # 0.2 K/mcL (0.0-0.6); Hematocrit 38.8 % (35.3-44.9); Hemoglobin 12.5 g/dL (11.5-15.4); Immature Granulocytes % 0.5 % (0-4); Lymphocytes # 1.9 K/mcL (0.6-4.6); Lymphocytes % 12.6 %; Mean Corpuscular HGB Conc 32.2 g/dL (31.6-35.5); Mean Corpuscular Hemoglobin 28.7 pg (28.0-33.3); Mean Platelet Volume 10.4 fL (9.4-12.4); Monocytes # 0.8 K/mcL (0.0-1.3); Monocytes % 5.3 %; Neutrophils # 12.4 K/mcL (1.6-8.9); Platelet Count 183 K/mcL (140-400); Red Blood Count 4.36 M/mcL (3.82-4.97); Red Cell Distribution Width 14.3 % (11.5-14.5); Segmented Neutrophils % 80.2 %; White Blood Count 15.4 K/mcL (4.3-11.1)
[2021-02-25 14:51] LABS: Bilirubin,Urine Negative (Negative); Blood,Urine Negative (Negative); Clarity,Urine Clear (Clear); Color,Urine Light-Yellow (Yellow); Glucose,Urine (UA) 300 mg/dL (Normal); Hyaline Casts,Urine Few per lpf (None Seen); Ketones,Urine Negative (Negative); Leukocyte Esterase,Urine Negative (Negative); Nitrite,Urine Negative (Negative); Protein,Urine Trace mg/dL (Neg-Trace); RBC,Urine 0-3 per hpf (0-3); Specific Gravity,Urine 1.016 (1.010-1.025); Squamous Epithelial Cell,Urine Few per hpf (None-Few); WBC,Urine 0-3 per hpf (0-3)
[2021-02-25 15:22] LABS: Alanine Aminotransferase 47 Units/L (7-52); Albumin 3.9 g/dL (3.5-5.7); Albumin/Globulin Ratio 1.1 (1.1-2.2); Alkaline Phosphatase 109 Units/L (34-104); Aspartate Amino Transferase 48 Units/L (13-39); BUN/Creatinine Ratio 16 (6-26); Bilirubin,Direct 0.1 mg/dL (0.0-0.2); Bilirubin,Indirect 0.5 mg/dL (0.0-1.0); Bilirubin,Total 0.6 mg/dL (0.3-1.0); Blood Urea Nitrogen 13 mg/dL (8-23); Calcium 9.4 mg/dL (8.6-10.3); Carbon Dioxide 25 mEq/L (23-29); Chloride 97 mEq/L (98-107); Globulin 3.5 g/dL (2.4-3.5); Glucose 314 mg/dL (70-105); Osmolality,Calculated 284 (280-300); Potassium 4.8 mEq/L (3.5-5.1); Sodium 131 mEq/L (136-145); Total Protein 7.4 g/dL (6.4-8.9); Troponin I < 0.03 ng/mL (< 0.04); eGFR For African Americans > 60 (> 60); eGFR For Non-African Americans > 60 (> 60)
[2021-02-25] MEDS ORDERED: Ondansetron 4 MG/2 ML VIAL IVP PRN (16:32)
[2021-02-25] MEDS ORDERED: Naloxone 0.4 MG/ML INJ IVP PRN (16:32)
[2021-02-25] MEDS ORDERED: D5% in Water 1,000 ML IVC PRN (16:36)
[2021-02-25] MEDS ORDERED: Dextrose Gel 15 GM/37.5 ML TUBE PO PRN ×2 (16:36)
[2021-02-25] MEDS ORDERED: *HR* Dextrose 50 % in Water (Vial) 50 ML VIAL IVP PRN (16:36)
[2021-02-25] MEDS ORDERED: Ipratropium/Albuterol Neb 3 ML IH PRN (17:29)
[2021-02-25] MEDS: Insulin LISPRO 300 UNITS/3 ML VIAL SUBQ SCH ×2 (17:41→21:13)
[2021-02-25] MEDS: Insulin DETEMIR 100 UNIT/ML X5UNITS SUBQ SCH (21:15)
[2021-02-25] MEDS: *HR* Heparin 5,000 UNIT/ML VIAL SQ SCH (21:16)
[2021-02-25] MEDS: Topiramate 25 MG TABLET PO SCH (21:16)
[2021-02-25] MEDS: Budesonide/Formoterol 160/4.5 1 PUFF INH IH SCH (22:40)
[2021-02-26] MEDS: Acetaminophen 325 MG TABLET PO PRN ×4 (00:20→20:42)
[2021-02-26] MEDS: Vancomycin 1,750 MG/517.5 ML IV.SOLN IVPB SCH ×2 (03:11→15:25)
[2021-02-26 05:08] LABS: Basophils # 0.1 K/mcL (0.0-0.2); Basophils % 0.3 %; Eosinophils % 0.2 %; Hematocrit 36.5 % (35.3-44.9); Hemoglobin 11.2 g/dL (11.5-15.4); Immature Granulocytes % 0.8 % (0-4); Lymphocytes # 1.3 K/mcL (0.6-4.6); Lymphocytes % 5.8 %; Mean Corpuscular HGB Conc 30.7 g/dL (31.6-35.5); Mean Corpuscular Hemoglobin 27.7 pg (28.0-33.3); Mean Corpuscular Volume 90.3 fL (83.0-100.0); Mean Platelet Volume 11.1 fL (9.4-12.4); Monocytes # 1.2 K/mcL (0.0-1.3); Monocytes % 5.2 %; Neutrophils # 20.2 K/mcL (1.6-8.9); Platelet Count 179 K/mcL (140-400); Red Blood Count 4.04 M/mcL (3.82-4.97); Red Cell Distribution Width 14.5 % (11.5-14.5); Segmented Neutrophils % 87.7 %; White Blood Count 23.1 K/mcL (4.3-11.1)
[2021-02-26 05:30] LABS: BUN/Creatinine Ratio 18 (6-26); Blood Urea Nitrogen 13 mg/dL (8-23); Calcium 8.6 mg/dL (8.6-10.3); Carbon Dioxide 23 mEq/L (23-29); Chloride 98 mEq/L (98-107); Glucose 339 mg/dL (70-105); Osmolality,Calculated 287 (280-300); Potassium 3.9 mEq/L (3.5-5.1); Sodium 132 mEq/L (136-145); eGFR For African Americans > 60 (> 60); eGFR For Non-African Americans > 60 (> 60)
[2021-02-26] MEDS: *HR* Heparin 5,000 UNIT/ML VIAL SQ SCH ×3 (05:55→20:42)
[2021-02-26] MEDS: Budesonide/Formoterol 160/4.5 1 PUFF INH IH SCH ×2 (07:40→20:05)
[2021-02-26] MEDS: Insulin LISPRO 300 UNITS/3 ML VIAL SUBQ SCH ×4 (08:05→20:42)
[2021-02-26] MEDS: atenoloL 50 MG TABLET PO SCH (08:06)
[2021-02-26] MEDS: Famotidine 20 MG TABLET PO SCH (08:06)
[2021-02-26] MEDS: Aspirin Enteric Coated 81 MG Tablet PO SCH (08:06)
[2021-02-26] MEDS: Furosemide 40 MG TABLET PO SCH (08:06)
[2021-02-26] MEDS: Topiramate 25 MG TABLET PO SCH ×2 (08:06→20:42)
[2021-02-26] MEDS: Insulin DETEMIR 100 UNIT/ML X5UNITS SUBQ SCH ×2 (08:08→20:43)
[2021-02-26] MEDS: Piperacillin/Tazobactam 3.375 GM in 0.9 % Sodium Chloride Mini Bag 100 ML IVPB SCH (20:43)
[2021-02-27] MEDS: Vancomycin 1,750 MG/517.5 ML IV.SOLN IVPB SCH (03:36)
[2021-02-27] MEDS: Acetaminophen 325 MG TABLET PO PRN (03:53)
[2021-02-27 05:10] LABS: Basophils # 0.1 K/mcL (0.0-0.2); Basophils % 0.3 %; Eosinophils # 0.2 K/mcL (0.0-0.6); Eosinophils % 1.4 %; Hematocrit 34.3 % (35.3-44.9); Hemoglobin 10.7 g/dL (11.5-15.4); Immature Granulocytes % 0.4 % (0-4); Lymphocytes # 2.5 K/mcL (0.6-4.6); Lymphocytes % 14.6 %; Mean Corpuscular HGB Conc 31.2 g/dL (31.6-35.5); Mean Corpuscular Hemoglobin 27.8 pg (28.0-33.3); Mean Corpuscular Volume 89.1 fL (83.0-100.0); Mean Platelet Volume 10.6 fL (9.4-12.4); Monocytes # 0.8 K/mcL (0.0-1.3); Monocytes % 4.5 %; Neutrophils # 13.7 K/mcL (1.6-8.9); Platelet Count 155 K/mcL (140-400); Red Blood Count 3.85 M/mcL (3.82-4.97); Red Cell Distribution Width 14.6 % (11.5-14.5); Segmented Neutrophils % 78.8 %; White Blood Count 17.4 K/mcL (4.3-11.1)
[2021-02-27 05:25] LABS: BUN/Creatinine Ratio 19 (6-26); Blood Urea Nitrogen 13 mg/dL (8-23); Calcium 8.4 mg/dL (8.6-10.3); Carbon Dioxide 25 mEq/L (23-29); Chloride 99 mEq/L (98-107); Glucose 255 mg/dL (70-105); Osmolality,Calculated 283 (280-300); Potassium 3.5 mEq/L (3.5-5.1); Sodium 132 mEq/L (136-145); eGFR For African Americans > 60 (> 60); eGFR For Non-African Americans > 60 (> 60)
[2021-02-27] MEDS: *HR* Heparin 5,000 UNIT/ML VIAL SQ SCH ×3 (05:52→22:05)
[2021-02-27] MEDS: Piperacillin/Tazobactam 3.375 GM in 0.9 % Sodium Chloride Mini Bag 100 ML IVPB SCH ×3 (06:18→22:05)
[2021-02-27] MEDS ORDERED: Ibuprofen 600 MG TABLET PO STA (07:38)
[2021-02-27] MEDS: Furosemide 40 MG TABLET PO SCH (07:41)
[2021-02-27] MEDS: Insulin DETEMIR 100 UNIT/ML X5UNITS SUBQ SCH ×2 (07:41→20:39)
[2021-02-27] MEDS: Topiramate 25 MG TABLET PO SCH ×2 (07:41→20:38)
[2021-02-27] MEDS: Aspirin Enteric Coated 81 MG Tablet PO SCH (07:41)
[2021-02-27] MEDS: atenoloL 50 MG TABLET PO SCH (07:41)
[2021-02-27] MEDS: Famotidine 20 MG TABLET PO SCH (07:41)
[2021-02-27] MEDS: Insulin LISPRO 300 UNITS/3 ML VIAL SUBQ SCH ×4 (07:42→20:38)
[2021-02-27] MEDS: Budesonide/Formoterol 160/4.5 1 PUFF INH IH SCH ×2 (10:29→19:38)
[2021-02-27] MEDS: Vancomycin 1,500 MG/265 ML IV.SOLN IVPB SCH (17:04)
[2021-02-27] MEDS ORDERED: Ibuprofen 600 MG TABLET PO ONE (20:30)
[2021-02-27] MEDS: Pregabalin 50 MG CAPSULE PO SCH (20:38)
[2021-02-27] MEDS ORDERED: NON-FORMULARY MEDICATION 1 EACH EACH (Topiramate [Topamax] 50 MG Tablet) PO SCH (21:00)
[2021-02-28] MEDS: Vancomycin 1,500 MG/265 ML IV.SOLN IVPB SCH (04:10)
[2021-02-28 05:17] LABS: Basophils # 0.1 K/mcL (0.0-0.2); Basophils % 0.4 %; Eosinophils # 0.3 K/mcL (0.0-0.6); Eosinophils % 2.4 %; Hematocrit 32.4 % (35.3-44.9); Hemoglobin 9.9 g/dL (11.5-15.4); Immature Granulocytes % 0.5 % (0-4); Lymphocytes # 2.3 K/mcL (0.6-4.6); Lymphocytes % 17.4 %; Mean Corpuscular HGB Conc 30.6 g/dL (31.6-35.5); Mean Corpuscular Hemoglobin 27.8 pg (28.0-33.3); Mean Platelet Volume 10.7 fL (9.4-12.4); Monocytes # 0.7 K/mcL (0.0-1.3); Monocytes % 5.1 %; Neutrophils # 9.9 K/mcL (1.6-8.9); Platelet Count 169 K/mcL (140-400); Red Blood Count 3.56 M/mcL (3.82-4.97); Red Cell Distribution Width 14.6 % (11.5-14.5); Segmented Neutrophils % 74.2 %; White Blood Count 13.3 K/mcL (4.3-11.1)
[2021-02-28 05:44] LABS: BUN/Creatinine Ratio 18 (6-26); Blood Urea Nitrogen 13 mg/dL (8-23); Calcium 7.1 mg/dL (8.6-10.3); Carbon Dioxide 24 mEq/L (23-29); Chloride 107 mEq/L (98-107); Glucose 227 mg/dL (70-105); Osmolality,Calculated 289 (280-300); Potassium 3.1 mEq/L (3.5-5.1); Sodium 136 mEq/L (136-145); eGFR For African Americans > 60 (> 60); eGFR For Non-African Americans > 60 (> 60)
[2021-02-28] MEDS ORDERED: Ibuprofen 600 MG TABLET PO PRN (06:04)
[2021-02-28] MEDS: *HR* Heparin 5,000 UNIT/ML VIAL SQ SCH (06:05)
[2021-02-28] MEDS: Piperacillin/Tazobactam 3.375 GM in 0.9 % Sodium Chloride Mini Bag 100 ML IVPB SCH (06:05)
[2021-02-28] MEDS: Budesonide/Formoterol 160/4.5 1 PUFF INH IH SCH (07:39)
[2021-02-28] MEDS ORDERED: Insulin DETEMIR 100 UNIT/ML X5UNITS SUBQ SCH ×2 (08:15→09:00)
[2021-02-28] MEDS: atenoloL 50 MG TABLET PO SCH (08:43)
[2021-02-28] MEDS: Pregabalin 50 MG CAPSULE PO SCH (08:43)
[2021-02-28] MEDS: Famotidine 20 MG TABLET PO SCH (08:43)
[2021-02-28] MEDS: Aspirin Enteric Coated 81 MG Tablet PO SCH (08:44)
[2021-02-28] MEDS: Topiramate 25 MG TABLET PO SCH (08:44)
[2021-02-28] MEDS: Furosemide 40 MG TABLET PO SCH (08:44)
[2021-02-28] MEDS: Insulin LISPRO 300 UNITS/3 ML VIAL SUBQ SCH ×2 (08:45→12:00)
[2021-02-28] MEDS ORDERED: Sennosides 8.6 MG TABLET PO SCH (09:00)
[2021-02-28 11:38] VITALS: BP 148/88
== END 2021-02-28 14:59 | disposition home or self-care (01) | DRG 872 ==
LOC: EMEROOARM 13:29 → 2NNU 13:29 → SUATTDRO 16:44 → 2NNU 17:22
PROVIDERS: ADMIT Internal Medicine; ATTEND Internal Medicine

== ENCOUNTER 2021-04-03 12:14 | Inpatient (IN) ==
[2021-04-03] MEDS ORDERED: cefTRIAXone 2,000 MG in Water for inj. (sterile) 20 ML IVP STA (13:19)
[2021-04-03 13:55] LABS: Basophils # 0.1 K/mcL (0.0-0.2); Basophils % 0.5 %; Eosinophils # 0.3 K/mcL (0.0-0.6); Eosinophils % 1.9 %; Immature Granulocytes % 0.5 % (0-4); Lymphocytes # 1.8 K/mcL (0.6-4.6); Lymphocytes % 13.6 %; Mean Corpuscular HGB Conc 29.7 g/dL (31.6-35.5); Mean Corpuscular Hemoglobin 27.6 pg (28.0-33.3); Mean Corpuscular Volume 92.8 fL (83.0-100.0); Mean Platelet Volume 9.9 fL (9.4-12.4); Monocytes # 0.6 K/mcL (0.0-1.3); Monocytes % 4.5 %; Neutrophils # 10.2 K/mcL (1.6-8.9); Platelet Count 185 K/mcL (140-400); Red Blood Count 3.77 M/mcL (3.82-4.97); Red Cell Distribution Width 15.5 % (11.5-14.5)
[2021-04-03 13:56] LABS: Hemoglobin 10.4 g/dL (11.5-15.4)
[2021-04-03 14:18] LABS: Alanine Aminotransferase 26 Units/L (7-52); Albumin 3.3 g/dL (3.5-5.7); Albumin/Globulin Ratio 0.9 (1.1-2.2); Alkaline Phosphatase 92 Units/L (34-104); Aspartate Amino Transferase 17 Units/L (13-39); BUN/Creatinine Ratio 17 (6-26); Bilirubin,Direct 0.1 mg/dL (0.0-0.2); Bilirubin,Indirect 0.3 mg/dL (0.0-1.0); Bilirubin,Total 0.4 mg/dL (0.3-1.0); Blood Urea Nitrogen 13 mg/dL (8-23); Calcium 8.6 mg/dL (8.6-10.3); Carbon Dioxide 27 mEq/L (23-29); Chloride 102 mEq/L (98-107); Globulin 3.8 g/dL (2.4-3.5); Glucose 213 mg/dL (70-105); Osmolality,Calculated 286 (280-300); Potassium 3.9 mEq/L (3.5-5.1); Sodium 135 mEq/L (136-145); Total Protein 7.1 g/dL (6.4-8.9); eGFR For African Americans > 60 (> 60); eGFR For Non-African Americans > 60 (> 60)
[2021-04-03 14:21] LABS: Bacteria,Urine Few per hpf (None-Few); Bilirubin,Urine Negative (Negative); Blood,Urine Small (Negative); Clarity,Urine Turbid (Clear); Color,Urine Yellow (Yellow); Glucose,Urine (UA) Normal (Normal); Ketones,Urine Negative (Negative); Leukocyte Esterase,Urine Large (Negative); Nitrite,Urine Negative (Negative); PH,Urine 6.5 pH Units (5.0-8.0); Protein,Urine Trace mg/dL (Neg-Trace); Specific Gravity,Urine 1.011 (1.010-1.025); Squamous Epithelial Cell,Urine Few per hpf (None-Few); Urobilinogen,Urine Normal (Normal); WBC,Urine TNTC per hpf (0-3)
[2021-04-03] MEDS ORDERED: Isovue-370 500 ML BOTTLE IVP ONE (16:09)
[2021-04-03] MEDS ORDERED: *HR* HYDROcodone/Acet 5/325 mg TABLET PO PRN (16:10)
[2021-04-03] MEDS ORDERED: Ondansetron 4 MG/2 ML VIAL IVP PRN (16:10)
[2021-04-03] MEDS ORDERED: *HR* OxyCODONE Immed Rel 5 MG TABLET PO PRN (16:10)
[2021-04-03] MEDS ORDERED: Melatonin 3 MG TABLET PO PRN (16:10)
[2021-04-03] MEDS ORDERED: Naloxone 0.4 MG/ML INJ IVP PRN (16:10)
[2021-04-03] MEDS ORDERED: Acetaminophen 325 MG TABLET PO PRN (16:10)
[2021-04-03] MEDS ORDERED: Ringers Solution, Lactated 1,000 ML IVC SCH (16:15)
[2021-04-03] MEDS: Lactobacillus 1 EACH CAP.SPRINK PO SCH (21:00)
[2021-04-03] MEDS: *HR* Heparin 5,000 UNIT/ML VIAL SQ SCH (21:00)
[2021-04-04 02:55] LABS: Alanine Aminotransferase 28 Units/L (7-52); Albumin 3.2 g/dL (3.5-5.7); Albumin/Globulin Ratio 0.9 (1.1-2.2); Alkaline Phosphatase 90 Units/L (34-104); Aspartate Amino Transferase 26 Units/L (13-39); BUN/Creatinine Ratio 18 (6-26); Bilirubin,Total 0.3 mg/dL (0.3-1.0); Blood Urea Nitrogen 14 mg/dL (8-23); Calcium 8.2 mg/dL (8.6-10.3); Carbon Dioxide 24 mEq/L (23-29); Chloride 103 mEq/L (98-107); Globulin 3.6 g/dL (2.4-3.5); Glucose 109 mg/dL (70-105); Magnesium 1.8 mg/dL (1.6-2.6); Osmolality,Calculated 277 (280-300); Phosphorous 3.1 mg/dL (2.7-4.5); Potassium 3.8 mEq/L (3.5-5.1); Sodium 133 mEq/L (136-145); Total Protein 6.8 g/dL (6.4-8.9); eGFR For African Americans > 60 (> 60); eGFR For Non-African Americans > 60 (> 60)
[2021-04-04 03:09] LABS: Prothrombin Time 14.7 Seconds (9.4-12.1)
[2021-04-04 03:10] LABS: INR 1.3
[2021-04-04 04:38] LABS: Hematocrit 33.6 % (35.3-44.9); Hemoglobin 10.2 g/dL (11.5-15.4); Mean Corpuscular Hemoglobin 28.1 pg (28.0-33.3); Mean Corpuscular Volume 92.6 fL (83.0-100.0); Red Blood Count 3.63 M/mcL (3.82-4.97); White Blood Count 12.8 K/mcL (4.3-11.1)
[2021-04-04 04:39] LABS: Basophils # 0.1 K/mcL (0.0-0.2); Basophils % 0.5 %; Eosinophils # 0.2 K/mcL (0.0-0.6); Eosinophils % 1.9 %; Immature Granulocytes % 0.5 % (0-4); Lymphocytes # 3.1 K/mcL (0.6-4.6); Lymphocytes % 24.2 %; Mean Corpuscular HGB Conc 30.4 g/dL (31.6-35.5); Mean Platelet Volume 10.2 fL (9.4-12.4); Monocytes # 0.7 K/mcL (0.0-1.3); Monocytes % 5.6 %; Neutrophils # 8.6 K/mcL (1.6-8.9); Platelet Count 182 K/mcL (140-400); Red Cell Distribution Width 15.6 % (11.5-14.5); Segmented Neutrophils % 67.3 %
[2021-04-04] MEDS: *HR* Heparin 5,000 UNIT/ML VIAL SQ SCH ×3 (05:35→21:38)
[2021-04-04] MEDS ORDERED: Dextrose Gel 15 GM/37.5 ML TUBE PO PRN ×2 (07:47)
[2021-04-04] MEDS ORDERED: *HR* Dextrose 50 % in Water (Vial) 50 ML VIAL IVP PRN (07:47)
[2021-04-04] MEDS ORDERED: D5% in Water 1,000 ML IVC PRN (07:47)
[2021-04-04] MEDS: Lactobacillus 1 EACH CAP.SPRINK PO SCH ×2 (08:29→21:37)
[2021-04-04] MEDS: polyethylene glycoL 3350 17 GM POWD.PACK PO SCH (11:49)
[2021-04-04] MEDS: Sennosides/Docusate Sodium TABLET PO SCH ×2 (11:49→21:38)
[2021-04-04] MEDS: Insulin LISPRO 300 UNITS/3 ML VIAL SUBQ SCH ×2 (11:55→17:07)
[2021-04-04] MEDS: cefTRIAXone 2,000 MG in Water for inj. (sterile) 20 ML IVP SCH (11:56)
[2021-04-04] MEDS ORDERED: Insulin LISPRO 300 UNITS/3 ML VIAL SUBQ SCH (21:00)
[2021-04-04] MEDS ORDERED: Ibuprofen 800 MG TABLET PO ONE (21:58)
[2021-04-05 01:11] LABS: Hematocrit 33.9 % (35.3-44.9); Hemoglobin 10.5 g/dL (11.5-15.4); Mean Corpuscular Hemoglobin 27.8 pg (28.0-33.3); Mean Corpuscular Volume 89.7 fL (83.0-100.0); Mean Platelet Volume 10.2 fL (9.4-12.4); Platelet Count 207 K/mcL (140-400); Red Blood Count 3.78 M/mcL (3.82-4.97); Red Cell Distribution Width 15.4 % (11.5-14.5); White Blood Count 11.3 K/mcL (4.3-11.1)
[2021-04-05 01:24] LABS: BUN/Creatinine Ratio 18 (6-26); Blood Urea Nitrogen 15 mg/dL (8-23); Carbon Dioxide 25 mEq/L (23-29); Chloride 101 mEq/L (98-107); Glucose 229 mg/dL (70-105); Osmolality,Calculated 286 (280-300); Potassium 4.1 mEq/L (3.5-5.1); Sodium 134 mEq/L (136-145); eGFR For African Americans > 60 (> 60); eGFR For Non-African Americans > 60 (> 60)
[2021-04-05] MEDS: *HR* Heparin 5,000 UNIT/ML VIAL SQ SCH (06:26)
[2021-04-05 06:46] VITALS: BP 173/83; PULSE 85; TEMP 97.5; O2SAT 97
[2021-04-05] MEDS: Lactobacillus 1 EACH CAP.SPRINK PO SCH (08:13)
[2021-04-05] MEDS: Insulin LISPRO 300 UNITS/3 ML VIAL SUBQ SCH (08:13)
[2021-04-05] MEDS: polyethylene glycoL 3350 17 GM POWD.PACK PO SCH (08:14)
[2021-04-05] MEDS: Sennosides/Docusate Sodium TABLET PO SCH (08:14)
[2021-04-05] MEDS ORDERED: Fluconazole 150 MG TABLET PO ONE (08:54)
[2021-04-05] MEDS: cefTRIAXone 2,000 MG in Water for inj. (sterile) 20 ML IVP SCH (10:17)
== END 2021-04-05 11:05 | disposition home or self-care (01) | DRG 872 ==
LOC: EMEROOARM 12:14 → 2ANU 12:14 → SUATTDRO 15:40 → 2ANU 17:50
PROVIDERS: ADMIT Internal Medicine; ATTEND Internal Medicine

== ENCOUNTER 2022-04-26 09:44 | Inpatient (IN) ==
[2022-04-26 15:31] LABS: ABG Base Excess -8 mEq/L (-2 to 3); ABG HCO3 20 mEq/L (21-27); ABG Oxygen Saturation 98 % (95-98); ABG PCO2 49 mmHg (35-45); ABG PH 7.22 pH Units (7.32-7.45); ABG PO2 122 mmHg (85-104); ABG TCO2 22 mEq/L (20-26); Blood Gas VT 420 cc
[2022-04-26] MEDS ORDERED: Artificial Tears SOLN 15 ML BOTTLE BOTH EYES PRN (15:31)
[2022-04-26] MEDS ORDERED: Ipratropium/Albuterol Neb 3 ML IH PRN (15:36)
[2022-04-26] MEDS ORDERED: Naloxone 0.4 MG/ML INJ IVP PRN (15:47)
[2022-04-26] MEDS: FentaNYL (PF) 1,000 MCG/100 ML IV.SOLN IVC SCH ×2 (15:57→23:57)
[2022-04-26] MEDS ORDERED: Vancomycin (wt based) 1,000 MG VIAL IVPB SCH (16:00)
[2022-04-26] MEDS: Norepinephrine 4 MG/254 ML IV.SOLN IVC SCH ×4 (16:15→23:41)
[2022-04-26 16:17] LABS: Albumin 3.4 g/dL (3.5-5.7); Bilirubin,Total 0.6 mg/dL (0.3-1.0); Calcium 7.8 mg/dL (8.6-10.3); Globulin 3.4 g/dL (2.4-3.5); Hematocrit 41.7 % (35.3-44.9); Hemoglobin 12.8 g/dL (11.5-15.4); Magnesium 1.7 mg/dL (1.6-2.6); Mean Corpuscular HGB Conc 30.7 g/dL (31.6-35.5); Mean Corpuscular Hemoglobin 28.5 pg (28.0-33.3); Mean Corpuscular Volume 92.9 fL (83.0-100.0); Mean Platelet Volume 11.5 fL (9.4-12.4); Platelet Count 210 K/mcL (140-400); Potassium 4.1 mEq/L (3.5-5.1); Red Blood Count 4.49 M/mcL (3.82-4.97); Red Cell Distribution Width 15.4 % (11.5-14.5); Total Protein 6.8 g/dL (6.4-8.9)
[2022-04-26 16:26] LABS: Bilirubin,Direct 0.2 mg/dL (0.0-0.2); Bilirubin,Indirect 0.4 mg/dL (0.0-1.0); White Blood Count 53.4 K/mcL (4.3-11.1)
[2022-04-26] MEDS: *HR* Heparin 5,000 UNIT/ML VIAL SQ SCH (16:43)
[2022-04-26] MEDS: Piperacillin/Tazobactam 3.375 GM in 0.9 % Sodium Chloride Mini Bag 100 ML IVPB SCH (16:44)
[2022-04-26 16:49] LABS: Lymphocytes # 2.1 K/mcL (0.6-4.6); Monocytes # 2.1 K/mcL (0.0-1.3); Neutrophils # 49.1 K/mcL (1.6-8.9)
[2022-04-26 16:50] LABS: Platelet Estimate Normal (Normal); Toxic Granulation Present (Not Present)
[2022-04-26] MEDS: Artificial Tears SOLN 15 ML BOTTLE BOTH EYES SCH ×2 (16:58→20:19)
[2022-04-26] MEDS: Pantoprazole 40 MG VIAL IVP SCH (16:58)
[2022-04-26 17:39] LABS: Bilirubin,Urine Small (Negative); Blood,Urine Large (Negative); Clarity,Urine Ex.Turbid (Clear); Color,Urine Dark-Yellow (Yellow); Glucose,Urine (UA) 200 mg/dL (Normal); Ketones,Urine Trace mg/dL (Negative); Leukocyte Esterase,Urine Moderate (Negative); Nitrite,Urine Negative (Negative); PH,Urine 5.5 pH Units (5.0-8.0); Protein,Urine >=300 mg/dL (Neg-Trace); Specific Gravity,Urine 1.029 (1.010-1.025)
[2022-04-26 17:42] LABS: Squamous Epithelial Cell,Urine Few per hpf (None-Few)
[2022-04-26 17:43] LABS: Granular Casts,Urine Few per lpf (None Seen)
[2022-04-26 17:45] LABS: Amorphous Sediment,Urine Few per hpf (None-Few); Bacteria,Urine Few per hpf (None-Few); RBC,Urine 50-100 per hpf (0-3); WBC,Urine 0-3 per hpf (0-3)
[2022-04-26] MEDS ORDERED: 0.9 % Sodium Chloride 1,000 ML IVC ONE (18:58)
[2022-04-26] MEDS ORDERED: Dextrose Gel 15 GM/37.5 ML TUBE PO PRN ×2 (19:23)
[2022-04-26] MEDS ORDERED: D5% in Water 1,000 ML IVC PRN (19:23)
[2022-04-26] MEDS ORDERED: *HR* Dextrose 50 % in Water (Syg) 50 ML SYRINGE IVP PRN (19:23)
[2022-04-26] MEDS: Insulin DETEMIR 100 UNIT/ML X5UNITS SUBQ SCH (20:18)
[2022-04-26] MEDS: Acetaminophen 325 MG TABLET PO PRN (20:19)
[2022-04-26] MEDS: Chlorhexidine Rinse 15 ML MOUTHWASH MM SCH (20:19)
[2022-04-27] MEDS: *HR* Heparin 5,000 UNIT/ML VIAL SQ SCH ×4 (00:08→23:40)
[2022-04-27] MEDS: Piperacillin/Tazobactam 3.375 GM in 0.9 % Sodium Chloride Mini Bag 100 ML IVPB SCH ×4 (00:08→23:42)
[2022-04-27] MEDS: Insulin LISPRO 300 UNITS/3 ML VIAL SUBQ SCH ×5 (00:10→23:41)
[2022-04-27] MEDS: Artificial Tears SOLN 15 ML BOTTLE BOTH EYES SCH ×7 (01:13→23:45)
[2022-04-27] MEDS: Norepinephrine 4 MG/254 ML IV.SOLN IVC SCH ×6 (02:32→21:04)
[2022-04-27 03:38] LABS: ABG Base Excess -6 mEq/L (-2 to 3); ABG HCO3 21 mEq/L (21-27); ABG Oxygen Saturation 96 % (95-98); ABG PCO2 42 mmHg (35-45); ABG PO2 89 mmHg (85-104); ABG TCO2 22 mEq/L (20-26); Blood Gas VT 420 cc
[2022-04-27] MEDS: Acetaminophen 325 MG TABLET PO PRN (04:20)
[2022-04-27 04:49] LABS: Eosinophils % 0.1 %; Mean Corpuscular HGB Conc 32.2 g/dL (31.6-35.5); Red Cell Distribution Width 15.5 % (11.5-14.5)
[2022-04-27 04:50] LABS: Basophils # 0.2 K/mcL (0.0-0.2); Basophils % 0.5 %; Hematocrit 39.4 % (35.3-44.9); Hemoglobin 12.7 g/dL (11.5-15.4); Lymphocytes % 6.9 %; Mean Corpuscular Hemoglobin 28.6 pg (28.0-33.3); Mean Corpuscular Volume 88.7 fL (83.0-100.0); Mean Platelet Volume 10.8 fL (9.4-12.4); Monocytes # 1.7 K/mcL (0.0-1.3); Monocytes % 4.3 %; Neutrophils # 33.6 K/mcL (1.6-8.9); Platelet Count 186 K/mcL (140-400); Red Blood Count 4.44 M/mcL (3.82-4.97); Segmented Neutrophils % 87.2 %
[2022-04-27 04:56] LABS: Lymphocytes # 2.7 K/mcL (0.6-4.6); White Blood Count 38.5 K/mcL (4.3-11.1)
[2022-04-27 05:13] LABS: Albumin 3.1 g/dL (3.5-5.7); Albumin/Globulin Ratio 0.9 (1.1-2.2); Bilirubin,Direct 0.3 mg/dL (0.0-0.2); Bilirubin,Indirect 0.4 mg/dL (0.0-1.0); Bilirubin,Total 0.7 mg/dL (0.3-1.0); Calcium 7.4 mg/dL (8.6-10.3); Globulin 3.5 g/dL (2.4-3.5); Magnesium 1.9 mg/dL (1.6-2.6); Phosphorous 3.6 mg/dL (2.7-4.5); Potassium 4.1 mEq/L (3.5-5.1); Total Protein 6.6 g/dL (6.4-8.9)
[2022-04-27 06:33] LABS: Estimated Average Glucose 295 mg/dl; Hemoglobin A1C 11.9 %
[2022-04-27] MEDS: Insulin DETEMIR 100 UNIT/ML X5UNITS SUBQ SCH ×2 (07:30→22:06)
[2022-04-27] MEDS: Chlorhexidine Rinse 15 ML MOUTHWASH MM SCH ×2 (07:30→20:30)
[2022-04-27] MEDS: Pantoprazole 40 MG VIAL IVP SCH (07:31)
[2022-04-27] MEDS ORDERED: Insulin DETEMIR 100 UNIT/ML X5UNITS SUBQ SCH (09:00)
[2022-04-27] MEDS: FentaNYL (PF) 1,000 MCG/100 ML IV.SOLN IVC SCH ×2 (09:19→16:29)
[2022-04-27] MEDS ORDERED: Insulin DETEMIR 100 UNIT/ML X5UNITS SUBQ ONE (09:23)
[2022-04-27] MEDS ORDERED: Acetaminophen IV 500 MG/50 ML BAG IVPB ONE (11:25)
[2022-04-27] MEDS: Vancomycin 1,500 MG/265 ML IV.SOLN IVPB SCH (12:21)
[2022-04-27] MEDS ORDERED: Acetaminophen IV 1,000 MG/100 ML BAG IVPB ONE (16:37)
[2022-04-28] MEDS: FentaNYL (PF) 1,000 MCG/100 ML IV.SOLN IVC SCH (00:59)
[2022-04-28] MEDS: Norepinephrine 4 MG/254 ML IV.SOLN IVC SCH (03:17)
[2022-04-28] MEDS: Acetaminophen 325 MG TABLET PO PRN (03:29)
[2022-04-28 03:52] LABS: Basophils # 0.2 K/mcL (0.0-0.2); Basophils % 0.6 %; Eosinophils # 0.4 K/mcL (0.0-0.6); Eosinophils % 1.7 %; Hematocrit 37.5 % (35.3-44.9); Immature Granulocytes % 0.7 % (0-4); Lymphocytes # 3.6 K/mcL (0.6-4.6); Lymphocytes % 14.5 %; Mean Corpuscular Hemoglobin 28.8 pg (28.0-33.3); Mean Corpuscular Volume 90.1 fL (83.0-100.0); Mean Platelet Volume 10.7 fL (9.4-12.4); Monocytes # 1.4 K/mcL (0.0-1.3); Monocytes % 5.8 %; Neutrophils # 18.9 K/mcL (1.6-8.9); Platelet Count 147 K/mcL (140-400); Red Blood Count 4.16 M/mcL (3.82-4.97); Red Cell Distribution Width 15.8 % (11.5-14.5); Segmented Neutrophils % 76.7 %; White Blood Count 24.7 K/mcL (4.3-11.1)
[2022-04-28 04:04] LABS: Albumin 2.8 g/dL (3.5-5.7); Albumin/Globulin Ratio 0.8 (1.1-2.2); Bilirubin,Direct 0.2 mg/dL (0.0-0.2); Bilirubin,Indirect 0.4 mg/dL (0.0-1.0); Bilirubin,Total 0.6 mg/dL (0.3-1.0); Calcium 7.6 mg/dL (8.6-10.3); Globulin 3.3 g/dL (2.4-3.5); Phosphorous 2.4 mg/dL (2.7-4.5); Potassium 3.7 mEq/L (3.5-5.1); Total Protein 6.1 g/dL (6.4-8.9)
[2022-04-28] MEDS: Artificial Tears SOLN 15 ML BOTTLE BOTH EYES SCH ×4 (04:14→15:51)
[2022-04-28 04:35] LABS: ABG Base Excess -4 mEq/L (-2 to 3); ABG HCO3 21 mEq/L (21-27); ABG Oxygen Saturation 94 % (95-98); ABG PCO2 39 mmHg (35-45); ABG PH 7.34 pH Units (7.32-7.45); ABG PO2 76 mmHg (85-104); ABG TCO2 23 mEq/L (20-26); Blood Gas Modality ASSIST CONTROL; Blood Gas VT 420 cc
[2022-04-28] MEDS: Insulin LISPRO 300 UNITS/3 ML VIAL SUBQ SCH ×4 (06:09→19:54)
[2022-04-28] MEDS ORDERED: Potassium Phosphate 44 MEQ in 0.9 % Sodium Chloride 250 ML IVPB ONE (06:43)
[2022-04-28] MEDS: Piperacillin/Tazobactam 3.375 GM in 0.9 % Sodium Chloride Mini Bag 100 ML IVPB SCH ×2 (08:15→15:55)
[2022-04-28] MEDS: Calcium Gluconate 1gm/50mL 1 GM/50 ML BAG IVPB SCH ×2 (08:17→09:13)
[2022-04-28] MEDS: Chlorhexidine Rinse 15 ML MOUTHWASH MM SCH ×2 (08:21→19:51)
[2022-04-28] MEDS: *HR* Heparin 5,000 UNIT/ML VIAL SQ SCH ×2 (08:22→15:55)
[2022-04-28] MEDS: Pantoprazole 40 MG VIAL IVP SCH (08:22)
[2022-04-28] MEDS: Insulin DETEMIR 100 UNIT/ML X5UNITS SUBQ SCH ×2 (08:29→19:51)
[2022-04-28] MEDS: Vancomycin 1,250 MG/262.5 ML IV.SOLN IVPB SCH (14:18)
[2022-04-28] MEDS: Topiramate 25 MG TABLET PO SCH (19:51)
[2022-04-28] MEDS: Pregabalin 50 MG CAPSULE PO SCH (19:51)
[2022-04-29] MEDS: Vancomycin 1,250 MG/262.5 ML IV.SOLN IVPB SCH (02:24)
[2022-04-29] MEDS: Piperacillin/Tazobactam 3.375 GM in 0.9 % Sodium Chloride Mini Bag 100 ML IVPB SCH ×4 (02:24→23:12)
[2022-04-29] MEDS: *HR* Heparin 5,000 UNIT/ML VIAL SQ SCH ×4 (02:25→23:12)
[2022-04-29 05:51] LABS: Red Cell Distribution Width 15.7 % (11.5-14.5)
[2022-04-29 05:53] LABS: Basophils # 0.1 K/mcL (0.0-0.2); Basophils % 0.6 %; Eosinophils # 0.4 K/mcL (0.0-0.6); Eosinophils % 2.6 %; Hematocrit 35.5 % (35.3-44.9); Hemoglobin 11.2 g/dL (11.5-15.4); Immature Granulocytes % 0.6 % (0-4); Immature Platelets 4.4 % (1.1-6.1); Lymphocytes # 2.2 K/mcL (0.6-4.6); Lymphocytes % 16.1 %; Mean Corpuscular HGB Conc 31.5 g/dL (31.6-35.5); Mean Corpuscular Hemoglobin 28.6 pg (28.0-33.3); Mean Corpuscular Volume 90.8 fL (83.0-100.0); Mean Platelet Volume 11.1 fL (9.4-12.4); Monocytes # 0.8 K/mcL (0.0-1.3); Monocytes % 5.9 %; Neutrophils # 10.2 K/mcL (1.6-8.9); Platelet Count 125 K/mcL (140-400); Red Blood Count 3.91 M/mcL (3.82-4.97); Segmented Neutrophils % 74.2 %; White Blood Count 13.7 K/mcL (4.3-11.1)
[2022-04-29] MEDS: Insulin LISPRO 300 UNITS/3 ML VIAL SUBQ SCH ×4 (06:06→20:47)
[2022-04-29 06:19] LABS: Albumin/Globulin Ratio 0.9 (1.1-2.2); Bilirubin,Direct 0.3 mg/dL (0.0-0.2); Bilirubin,Indirect 0.5 mg/dL (0.0-1.0); Bilirubin,Total 0.8 mg/dL (0.3-1.0); Globulin 3.4 g/dL (2.4-3.5); Phosphorous 2.4 mg/dL (2.7-4.5); Potassium 3.9 mEq/L (3.5-5.1); Total Protein 6.4 g/dL (6.4-8.9)
[2022-04-29] MEDS: atenoloL 50 MG TABLET PO SCH (07:51)
[2022-04-29] MEDS ORDERED: Iopamidol - 370 500 ML MLS IVP ONE (08:19)
[2022-04-29] MEDS ORDERED: ALPRAZolam 0.5 MG TABLET PO ONE (08:23)
[2022-04-29] MEDS: Pantoprazole 40 MG VIAL IVP SCH (09:10)
[2022-04-29] MEDS: Aspirin Enteric Coated 81 MG Tablet PO SCH (09:10)
[2022-04-29] MEDS: Chlorhexidine Rinse 15 ML MOUTHWASH MM SCH ×2 (09:11→20:46)
[2022-04-29] MEDS: Topiramate 25 MG TABLET PO SCH ×2 (09:11→20:46)
[2022-04-29] MEDS: Pregabalin 50 MG CAPSULE PO SCH ×2 (09:11→20:46)
[2022-04-29] MEDS: Insulin DETEMIR 100 UNIT/ML X5UNITS SUBQ SCH ×2 (09:22→23:06)
[2022-04-30 05:21] LABS: Basophils # 0.1 K/mcL (0.0-0.2); Basophils % 0.7 %; Eosinophils # 0.5 K/mcL (0.0-0.6); Eosinophils % 4.5 %; Hematocrit 36.3 % (35.3-44.9); Hemoglobin 11.4 g/dL (11.5-15.4); Immature Granulocytes % 0.5 % (0-4); Lymphocytes # 2.8 K/mcL (0.6-4.6); Lymphocytes % 24.9 %; Mean Corpuscular HGB Conc 31.4 g/dL (31.6-35.5); Mean Corpuscular Hemoglobin 28.9 pg (28.0-33.3); Mean Corpuscular Volume 91.9 fL (83.0-100.0); Mean Platelet Volume 10.7 fL (9.4-12.4); Monocytes # 0.7 K/mcL (0.0-1.3); Monocytes % 6.5 %; Platelet Count 132 K/mcL (140-400); Red Blood Count 3.95 M/mcL (3.82-4.97); Red Cell Distribution Width 15.5 % (11.5-14.5); Segmented Neutrophils % 62.9 %; White Blood Count 11.1 K/mcL (4.3-11.1)
[2022-04-30 05:42] LABS: Calcium 8.1 mg/dL (8.6-10.3); Magnesium 2.1 mg/dL (1.6-2.6); Phosphorous 2.3 mg/dL (2.7-4.5); Potassium 3.9 mEq/L (3.5-5.1)
[2022-04-30] MEDS ORDERED: Nitroglycerin 0.4 MG TAB.SUBL SL PRN (07:26)
[2022-04-30] MEDS ORDERED: hydrOXYzine pamoate 25 MG CAPSULE PO PRN (07:26)
[2022-04-30] MEDS ORDERED: Ipratropium/Albuterol Neb 3 ML IH PRN (07:26)
[2022-04-30] MEDS ORDERED: Furosemide 40 MG TABLET PO PRN (07:26)
[2022-04-30] MEDS ORDERED: Furosemide 40 MG/4 ML VIAL IVP ONE (08:16)
[2022-04-30] MEDS: Topiramate 25 MG TABLET PO SCH ×2 (08:24→22:16)
[2022-04-30] MEDS: atenoloL 50 MG TABLET PO SCH (08:25)
[2022-04-30] MEDS: Aspirin Enteric Coated 81 MG Tablet PO SCH (08:26)
[2022-04-30] MEDS: Cyanocobalamin (B-12) 1,000 MCG TABLET PO SCH (08:26)
[2022-04-30] MEDS: *HR* Heparin 5,000 UNIT/ML VIAL SQ SCH ×2 (08:27→17:10)
[2022-04-30] MEDS: Chlorhexidine Rinse 15 ML MOUTHWASH MM SCH (08:27)
[2022-04-30] MEDS: Piperacillin/Tazobactam 3.375 GM in 0.9 % Sodium Chloride Mini Bag 100 ML IVPB SCH (08:29)
[2022-04-30] MEDS: Pregabalin 50 MG CAPSULE PO SCH ×2 (08:41→22:16)
[2022-04-30] MEDS: Insulin DETEMIR 100 UNIT/ML X5UNITS SUBQ SCH ×2 (08:42→22:16)
[2022-04-30] MEDS: Insulin LISPRO 300 UNITS/3 ML VIAL SUBQ SCH ×4 (09:08→19:35)
[2022-04-30 23:24] VITALS: TEMP 97.6
[2022-05-01] MEDS: *HR* Heparin 5,000 UNIT/ML VIAL SQ SCH ×2 (01:27→09:28)
[2022-05-01 02:10] LABS: Basophils # 0.1 K/mcL (0.0-0.2); Basophils % 0.8 %; Eosinophils # 0.5 K/mcL (0.0-0.6); Eosinophils % 4.1 %; Hematocrit 35.6 % (35.3-44.9); Hemoglobin 11.1 g/dL (11.5-15.4); Immature Granulocytes % 0.4 % (0-4); Lymphocytes % 26.8 %; Mean Corpuscular HGB Conc 31.2 g/dL (31.6-35.5); Mean Corpuscular Hemoglobin 28.6 pg (28.0-33.3); Mean Corpuscular Volume 91.8 fL (83.0-100.0); Mean Platelet Volume 10.5 fL (9.4-12.4); Monocytes # 0.7 K/mcL (0.0-1.3); Monocytes % 6.6 %; Neutrophils # 6.8 K/mcL (1.6-8.9); Platelet Count 132 K/mcL (140-400); Red Blood Count 3.88 M/mcL (3.82-4.97); Red Cell Distribution Width 15.1 % (11.5-14.5); Segmented Neutrophils % 61.3 %; White Blood Count 11.2 K/mcL (4.3-11.1)
[2022-05-01 02:30] LABS: Calcium 8.3 mg/dL (8.6-10.3); Magnesium 1.9 mg/dL (1.6-2.6); Phosphorous 2.7 mg/dL (2.7-4.5); Potassium 3.7 mEq/L (3.5-5.1)
[2022-05-01] MEDS: Vancomycin 1,500 MG/265 ML IV.SOLN IVPB SCH (05:20)
[2022-05-01 07:16] VITALS: O2SAT 97
[2022-05-01] MEDS: Topiramate 25 MG TABLET PO SCH (09:27)
[2022-05-01] MEDS: atenoloL 50 MG TABLET PO SCH (09:28)
[2022-05-01] MEDS: Pregabalin 50 MG CAPSULE PO SCH (09:28)
[2022-05-01] MEDS: Aspirin Enteric Coated 81 MG Tablet PO SCH (09:28)
[2022-05-01] MEDS: Cyanocobalamin (B-12) 1,000 MCG TABLET PO SCH (09:28)
[2022-05-01] MEDS: Insulin LISPRO 300 UNITS/3 ML VIAL SUBQ SCH (09:29)
[2022-05-01] MEDS: Insulin DETEMIR 100 UNIT/ML X5UNITS SUBQ SCH (09:38)
[2022-05-01 11:32] VITALS: BP 141/49; PULSE 68
== END 2022-05-01 15:03 | disposition home health service (06) | DRG 871 ==
LOC: PREOBSVTOIN 11:40 → SUATTDRO 15:24 → ICNU 15:24 → 2ANU 04-29 22:41
PROVIDERS: ADMIT Pediatrics; ATTEND Pharmacist

== ENCOUNTER 2022-06-01 02:17 | Inpatient (IN) ==
[2022-06-01 03:42] LABS: Basophils # 0.1 K/mcL (0.0-0.2); Basophils % 0.4 %; Eosinophils # 0.3 K/mcL (0.0-0.6); Eosinophils % 1.2 %; Hematocrit 36.7 % (35.3-44.9); Hemoglobin 11.8 g/dL (11.5-15.4); Immature Granulocytes % 0.7 % (0-4); Lymphocytes # 3.4 K/mcL (0.6-4.6); Lymphocytes % 14.5 %; Mean Corpuscular HGB Conc 32.2 g/dL (31.6-35.5); Mean Corpuscular Hemoglobin 29.3 pg (28.0-33.3); Mean Corpuscular Volume 91.1 fL (83.0-100.0); Mean Platelet Volume 11.5 fL (9.4-12.4); Monocytes # 1.3 K/mcL (0.0-1.3); Monocytes % 5.7 %; Neutrophils # 18.2 K/mcL (1.6-8.9); Platelet Count 148 K/mcL (140-400); Red Blood Count 4.03 M/mcL (3.82-4.97); Segmented Neutrophils % 77.5 %; White Blood Count 23.4 K/mcL (4.3-11.1)
[2022-06-01 04:01] LABS: Albumin 3.4 g/dL (3.5-5.7); Albumin/Globulin Ratio 0.9 (1.1-2.2); Bilirubin,Total 0.8 mg/dL (0.3-1.0); Calcium 9.2 mg/dL (8.6-10.3); Potassium 3.7 mEq/L (3.5-5.1); Total Protein 7.4 g/dL (6.4-8.9)
[2022-06-01 04:43] LABS: Adenovirus Not Detected (Not Detect); Bordetella Pertussis Not Detected (Not Detect); Chlamydophila pneumoniae Not Detected (Not Detect); Coronavirus 229E Not Detected (Not Detect); Coronavirus HKU1 Not Detected (Not Detect); Coronavirus NL63 Not Detected (Not Detect); Coronavirus OC43 Not Detected (Not Detect); Human Metapneumovirus Not Detected (Not Detect); Human Rhinovirus/Enterovirus Not Detected (Not Detect); Influenza A Subtype 2009 H1 Not Detected (Not Detect); Influenza B Not Detected (Not Detect); Mycoplasma pneumoniae Not Detected (Not Detect); Parainfluenza Virus 1 Not Detected (Not Detect); Parainfluenza Virus 2 Not Detected (Not Detect); Parainfluenza Virus 3 Not Detected (Not Detect); Parainfluenza Virus 4 Not Detected (Not Detect); Respiratory Syncytial Virus Not Detected (Not Detect); SARS-CoV-2 Not Detected (Not Detect)
[2022-06-01 04:57] LABS: Bacteria,Urine Few per hpf (None-Few); Bilirubin,Urine Small (Negative); Blood,Urine Negative (Negative); Clarity,Urine Clear (Clear); Color,Urine Dark-Yellow (Yellow); Glucose,Urine (UA) 50 mg/dL (Normal); Hyaline Casts,Urine Many per lpf (None Seen); Ketones,Urine Negative (Negative); Leukocyte Esterase,Urine Trace (Negative); Mucus,Urine Few per lpf (None-Few); Nitrite,Urine Negative (Negative); PH,Urine 5.5 pH Units (5.0-8.0); Protein,Urine Trace mg/dL (Neg-Trace); RBC,Urine 0-3 per hpf (0-3); Specific Gravity,Urine 1.025 (1.010-1.025); Squamous Epithelial Cell,Urine Few per hpf (None-Few); WBC,Urine 0-3 per hpf (0-3)
[2022-06-01] MEDS ORDERED: ceFAZolin 2,000 MG in 0.9 % Sodium Chloride 100 ML IVPB ONE (05:00)
[2022-06-01] MEDS ORDERED: Vancomycin 2,000 MG/520 ML IV.SOLN IVPB ONE (05:00)
[2022-06-01] MEDS ORDERED: Naloxone 0.4 MG/ML INJ IVP PRN (05:29)
[2022-06-01] MEDS ORDERED: Ondansetron 4 MG/2 ML VIAL IVP PRN (05:29)
[2022-06-01] MEDS ORDERED: 0.9 % Sodium Chloride 500 ML IVC ONE (05:30)
[2022-06-01] MEDS ORDERED: Dextrose Gel 15 GM/37.5 ML TUBE PO PRN ×2 (05:45)
[2022-06-01] MEDS ORDERED: D5% in Water 1,000 ML IVC PRN (05:45)
[2022-06-01] MEDS ORDERED: *HR* Dextrose 50 % in Water (Syg) 50 ML SYRINGE IVP PRN (05:45)
[2022-06-01] MEDS ORDERED: *HR* Enoxaparin 60 MG/0.6 ML SYRINGE SQ SCH (09:00)
[2022-06-01] MEDS: Insulin LISPRO 300 UNITS/3 ML VIAL SUBQ SCH ×3 (10:10→17:52)
[2022-06-01 11:09] LABS: Estimated Average Glucose 278 mg/dl; Hemoglobin A1C 11.3 %
[2022-06-01] MEDS: Cefepime HCl 2,000 MG in 0.9 % Sodium Chloride Mini Bag 100 ML IVPB SCH ×2 (14:39→19:50)
[2022-06-01] MEDS: Vancomycin 1,500 MG/265 ML IV.SOLN IVPB SCH (18:04)
[2022-06-01] MEDS: Acetaminophen 325 MG TABLET PO PRN (19:49)
[2022-06-01] MEDS: atenoloL 50 MG TABLET PO SCH (22:10)
[2022-06-02] MEDS: *HR* Enoxaparin 60 MG/0.6 ML SYRINGE SQ SCH ×3 (00:29→21:11)
[2022-06-02 01:02] LABS: A.calcoaceticus-baumannii cplx Not Detected (Not Detect); Bacteroides fragilis by PCR Not Detected (Not Detect); Enterobacter cloacae Cmplx PCR Not Detected (Not Detect); Enterobacterales by PCR Not Detected (Not Detect); Enterococcus faecalis by PCR Not Detected (Not Detect); Enterococcus faecium by PCR Not Detected (Not Detect); Escherichia coli by PCR Not Detected (Not Detect); Klebs. pneumoniae group by PCR Not Detected (Not Detect); Klebsiella aerogenes by PCR Not Detected (Not Detect); Klebsiella oxytoca by PCR Not Detected (Not Detect); Staph epidermidis by PCR Not Detected (Not Detect); Staph lugdunensis by PCR Not Detected (Not Detect); Staphylococcus aureus by PCR Not Detected (Not Detect); Staphylococcus by PCR DETECTED (Not Detect); Streptococcus agalactiae(B)PCR Not Detected (Not Detect); Streptococcus by PCR Not Detected (Not Detect); Streptococcus pneumoniae PCR Not Detected (Not Detect); Streptococcus pyogenes (A) PCR Not Detected (Not Detect)
[2022-06-02 01:03] LABS: Candida albicans by PCR Not Detected (Not Detect); Candida auris by PCR Not Detected (Not Detect); Candida glabrata by PCR Not Detected (Not Detect); Candida krusei by PCR Not Detected (Not Detect); Candida parapsilosis by PCR Not Detected (Not Detect); Candida tropicalis by PCR Not Detected (Not Detect); Crypto. neoformans/gattii PCR Not Detected (Not Detect); Proteus by PCR Not Detected (Not Detect); Pseudomonas aeruginosa by PCR Not Detected (Not Detect); Salmonella species by PCR Not Detected (Not Detect); Serratia marcescens by PCR Not Detected (Not Detect); Stenotrophomonas maltophilia Not Detected (Not Detect)
[2022-06-02] MEDS: Cefepime HCl 2,000 MG in 0.9 % Sodium Chloride Mini Bag 100 ML IVPB SCH ×3 (04:49→21:02)
[2022-06-02] MEDS: Acetaminophen 325 MG TABLET PO PRN (04:52)
[2022-06-02 05:34] LABS: Basophils # 0.1 K/mcL (0.0-0.2); Basophils % 0.6 %; Eosinophils # 0.7 K/mcL (0.0-0.6); Eosinophils % 4.3 %; Hematocrit 35.9 % (35.3-44.9); Hemoglobin 11.5 g/dL (11.5-15.4); Immature Granulocytes % 0.3 % (0-4); Lymphocytes # 3.2 K/mcL (0.6-4.6); Lymphocytes % 21.1 %; Mean Corpuscular Hemoglobin 28.9 pg (28.0-33.3); Mean Corpuscular Volume 90.2 fL (83.0-100.0); Mean Platelet Volume 10.7 fL (9.4-12.4); Monocytes % 6.9 %; Platelet Count 161 K/mcL (140-400); Red Blood Count 3.98 M/mcL (3.82-4.97); Red Cell Distribution Width 15.2 % (11.5-14.5); Segmented Neutrophils % 66.8 %
[2022-06-02 06:09] LABS: Calcium 8.8 mg/dL (8.6-10.3); Magnesium 1.8 mg/dL (1.6-2.6); Potassium 3.5 mEq/L (3.5-5.1)
[2022-06-02] MEDS: Vancomycin 1,500 MG/265 ML IV.SOLN IVPB SCH (06:15)
[2022-06-02] MEDS: atenoloL 50 MG TABLET PO SCH (08:36)
[2022-06-02] MEDS: Insulin LISPRO 300 UNITS/3 ML VIAL SUBQ SCH ×4 (08:38→21:12)
[2022-06-02] MEDS ORDERED: hydrOXYzine pamoate 25 MG CAPSULE PO PRN (11:16)
[2022-06-02] MEDS ORDERED: *HR* Dextrose 50 % in Water (Syg) 50 ML SYRINGE IVP PRN (11:19)
[2022-06-02] MEDS ORDERED: Dextrose Gel 15 GM/37.5 ML TUBE PO PRN ×2 (11:19)
[2022-06-02] MEDS ORDERED: D5% in Water 1,000 ML IVC PRN (11:19)
[2022-06-02] MEDS: Vancomycin 1,250 MG/262.5 ML IV.SOLN IVPB SCH (18:12)
[2022-06-02] MEDS ORDERED: Insulin DETEMIR 100 UNIT/ML X5UNITS SUBQ SCH (21:00)
[2022-06-02] MEDS: Topiramate 25 MG TABLET PO SCH (21:10)
[2022-06-02] MEDS: Pregabalin 50 MG CAPSULE PO SCH (21:10)
[2022-06-03 02:49] LABS: Basophils # 0.1 K/mcL (0.0-0.2); Basophils % 0.8 %; Eosinophils # 0.8 K/mcL (0.0-0.6); Eosinophils % 5.4 %; Hematocrit 33.8 % (35.3-44.9); Immature Granulocytes % 0.4 % (0-4); Lymphocytes % 25.6 %; Mean Corpuscular HGB Conc 32.5 g/dL (31.6-35.5); Mean Corpuscular Hemoglobin 29.3 pg (28.0-33.3); Mean Corpuscular Volume 90.1 fL (83.0-100.0); Mean Platelet Volume 10.6 fL (9.4-12.4); Monocytes % 6.6 %; Neutrophils # 9.6 K/mcL (1.6-8.9); Platelet Count 170 K/mcL (140-400); Red Blood Count 3.75 M/mcL (3.82-4.97); Segmented Neutrophils % 61.2 %; White Blood Count 15.7 K/mcL (4.3-11.1)
[2022-06-03 03:17] LABS: Albumin 3.2 g/dL (3.5-5.7); Albumin/Globulin Ratio 0.8 (1.1-2.2); Bilirubin,Total 0.5 mg/dL (0.3-1.0); Calcium 8.7 mg/dL (8.6-10.3); Globulin 3.8 g/dL (2.4-3.5); Potassium 3.2 mEq/L (3.5-5.1)
[2022-06-03] MEDS: Cefepime HCl 2,000 MG in 0.9 % Sodium Chloride Mini Bag 100 ML IVPB SCH ×4 (05:39→23:47)
[2022-06-03] MEDS: Vancomycin 1,250 MG/262.5 ML IV.SOLN IVPB SCH (06:05)
[2022-06-03] MEDS: Insulin LISPRO 300 UNITS/3 ML VIAL SUBQ SCH ×4 (08:09→20:45)
[2022-06-03] MEDS: *HR* Enoxaparin 60 MG/0.6 ML SYRINGE SQ SCH ×2 (08:13→20:45)
[2022-06-03] MEDS: Pregabalin 50 MG CAPSULE PO SCH ×2 (08:13→20:44)
[2022-06-03] MEDS: atenoloL 50 MG TABLET PO SCH (08:13)
[2022-06-03] MEDS: Aspirin Enteric Coated 81 MG Tablet PO SCH (08:14)
[2022-06-03] MEDS: Topiramate 25 MG TABLET PO SCH ×2 (08:14→20:44)
[2022-06-03] MEDS: Cyanocobalamin (B-12) 1,000 MCG TABLET PO SCH (08:14)
[2022-06-03] MEDS: Insulin DETEMIR 100 UNIT/ML X5UNITS SUBQ SCH ×2 (11:52→20:45)
[2022-06-03] MEDS ORDERED: Ipratropium/Albuterol Neb 3 ML IH PRN (14:27)
[2022-06-03] MEDS: Budesonide Neb 0.5 MG/2 ML IH SCH (22:06)
[2022-06-04 04:46] LABS: Basophils # 0.1 K/mcL (0.0-0.2); Basophils % 0.9 %; Eosinophils # 0.7 K/mcL (0.0-0.6); Eosinophils % 6.5 %; Hematocrit 35.6 % (35.3-44.9); Hemoglobin 11.2 g/dL (11.5-15.4); Immature Granulocytes % 0.4 % (0-4); Lymphocytes # 3.6 K/mcL (0.6-4.6); Mean Corpuscular HGB Conc 31.5 g/dL (31.6-35.5); Mean Corpuscular Hemoglobin 28.9 pg (28.0-33.3); Mean Corpuscular Volume 91.8 fL (83.0-100.0); Mean Platelet Volume 10.9 fL (9.4-12.4); Monocytes # 0.7 K/mcL (0.0-1.3); Monocytes % 6.5 %; Neutrophils # 6.1 K/mcL (1.6-8.9); Platelet Count 177 K/mcL (140-400); Red Blood Count 3.88 M/mcL (3.82-4.97); Red Cell Distribution Width 15.1 % (11.5-14.5); Segmented Neutrophils % 53.7 %; White Blood Count 11.3 K/mcL (4.3-11.1)
[2022-06-04 05:11] LABS: Albumin 3.3 g/dL (3.5-5.7); Albumin/Globulin Ratio 0.9 (1.1-2.2); Bilirubin,Total 0.5 mg/dL (0.3-1.0); Calcium 8.9 mg/dL (8.6-10.3); Globulin 3.8 g/dL (2.4-3.5); Potassium 3.4 mEq/L (3.5-5.1); Total Protein 7.1 g/dL (6.4-8.9)
[2022-06-04] MEDS: Cefepime HCl 2,000 MG in 0.9 % Sodium Chloride Mini Bag 100 ML IVPB SCH (06:07)
[2022-06-04 07:36] VITALS: TEMP 98.6
[2022-06-04] MEDS: *HR* Enoxaparin 60 MG/0.6 ML SYRINGE SQ SCH (08:44)
[2022-06-04] MEDS: Aspirin Enteric Coated 81 MG Tablet PO SCH (08:44)
[2022-06-04] MEDS: Pregabalin 50 MG CAPSULE PO SCH (08:44)
[2022-06-04] MEDS: atenoloL 50 MG TABLET PO SCH (08:44)
[2022-06-04] MEDS: Cyanocobalamin (B-12) 1,000 MCG TABLET PO SCH (08:44)
[2022-06-04] MEDS: Topiramate 25 MG TABLET PO SCH (08:44)
[2022-06-04] MEDS: Insulin DETEMIR 100 UNIT/ML X5UNITS SUBQ SCH (08:45)
[2022-06-04] MEDS: Insulin LISPRO 300 UNITS/3 ML VIAL SUBQ SCH (08:46)
[2022-06-04] MEDS: Budesonide Neb 0.5 MG/2 ML IH SCH (10:35)
[2022-06-04 11:20] VITALS: BP 110/70; PULSE 81; O2SAT 92
== END 2022-06-04 12:28 | disposition home health service (06) | DRG 871 ==
LOC: EMEROOARM 02:17 → 3ANU 02:17
PROVIDERS: ADMIT Internal Medicine; ATTEND Internal Medicine